=== PATIENT | female | born 1945 | race Caucasian/White ===

== ENCOUNTER → 2017-12-24 07:54 | Outpatient (CLI) | payer MEDICARE, SELFPAY ==
--- NOTE | 2017-12-24 | DI.MG.S_ITS ---
BILATERAL DIGITAL SCREENING MAMMOGRAM 3D/2D WITH CAD: 12/24/2017 CLINICAL: Routine screening. Family history of breast cancer. Comparison is made to exams dated: 07/30/2016 mammogram, 11/27/2014 mammogram, and 03/23/2013 mammogram - [facility]. The tissue of both breasts is heterogeneously dense. This may lower the sensitivity of mammography. Current study was also evaluated with a Computer Aided Detection (CAD) system. No significant masses, calcifications, or other findings are seen in either breast. There has been no significant interval change. IMPRESSION: NEGATIVE There is no mammographic evidence of malignancy. A 1 year screening mammogram is recommended. This exam was interpreted at Station ID: [id number]. NOTE: For mammograms, a report in lay terms will be sent to the patient. Approximately 15% of breast malignancies will not be visualized mammographically. In the management of a palpable breast mass, a negative mammogram must not discourage biopsy of a clinically suspicious lesion. Electronically Signed By: Abhijit olivas/jason:12/24/2017 16:56:30 letter sent: Normal Exam ACR BI-RADS Category 1: Negative [id number]
== END ==
PROVIDERS: PCP Family Medicine; Visit Provider Family Medicine
DX: Z12.31 Encounter for screening mammogram for malignant neoplasm of breast (principal); Z80.3 Family history of malignant neoplasm of breast
CPT/HCPCS: 77063; 77067

== ENCOUNTER → 2018-11-08 10:07 | Outpatient (CLI) | payer MEDICARE, SELFPAY | PROVIDERS: PCP Family Medicine; Visit Provider Family Medicine | DX: M81.0 Age-related osteoporosis without current pathological fracture (principal); Z78.0 Asymptomatic menopausal state | CPT/HCPCS: 77080 ==

== ENCOUNTER → 2020-03-22 08:49 | Outpatient (CLI) | payer MEDICARE, SELFPAY ==
[2020-03-22] MEDS: COVID-19 VACC #1, MRNA(MOD) 100 MCG/0.5 ML VIAL IM (08:55)
== END ==
PROVIDERS: PCP Family Medicine; Visit Provider Internal Medicine
DX: Z23 Encounter for immunization (principal)
CPT/HCPCS: 0011A; 91301

== ENCOUNTER → 2020-04-19 08:47 | Outpatient (CLI) | payer MEDICARE, SELFPAY ==
[2020-04-19] MEDS: COVID-19 VACC #2, MRNA(MOD) 100 MCG/0.5 ML VIAL IM (08:55)
== END ==
PROVIDERS: PCP Family Medicine; Visit Provider Internal Medicine
DX: Z23 Encounter for immunization (principal)
CPT/HCPCS: 0012A; 91301

== ENCOUNTER → 2020-04-24 11:02 | Outpatient (CLI) | payer MEDICARE, SELFPAY ==
[2020-04-24 13:28] LABS: COVID19 -Nasal RAPID Negative (Negative)
== END ==
PROVIDERS: PCP Family Medicine; Visit Provider Nurse Practitioner Family
DX: Z20.822 Contact with and (suspected) exposure to COVID-19 (principal)
CPT/HCPCS: 87635; C9803

== ENCOUNTER 2020-04-26 11:41 | Day surgery (SDC) | payer MEDICARE, SELFPAY ==
[2020-04-26 12:14] VITALS: BP 130/80; PULSE 78; RESP 16; TEMP 37.2; O2SAT 99; BMI 22.1
--- NOTE | 2020-04-26 12:17 | PM.HP.1 ---
History of Present Illness History of Present Illness Date Patient Seen: 04/26/20 Chief complaint: SDC Narrative: 74 year old female comes in today for consideration of a screening colonoscopy. Last colonoscopy in 2009, normal. 2-[address] Baker did note that her colon was long and required the entire length of the scope to perform cecal intubation. There have been no lower GI symptoms suggesting disease such as change in bowel habits, bleeding, abdominal pain or anemia. There's been no family history of colon cancer or colon polyps. Overall health issues have been stable, including no major cardiac events for at least 6 weeks. PCP: Dr. Stewart Past medical history: Osteoporosis Depression Impaired fasting glucose Situational stress Hypertension Subdural hematoma Past surgical history: Colonoscopy, 2009, normal Family history: No colon cancer or colon polyps Social history: , retired dietitian, hospital. Patient History Medical History (Updated 04/26/20 @ 12:05 by Kim Lopez RN) Depression Hypertension Meds Home Medications and Allergies Home Medications Medication Instructions Recorded Confirmed Type diltiazem HCl 180 mg PO DAILY 04/26/20 04/26/20 History spironolactone 25 mg PO DAILY 04/26/20 04/26/20 History venlafaxine 75 mg PO DAILY 04/26/20 04/26/20 History Allergies Allergy/AdvReac Type Severity Reaction Status Date / Time Iodinated Contrast Media Allergy Verified 04/26/20 11:59 Review of Systems Review of Systems ROS: Yes All systems reviewed with the patient and are negative except as otherwise documented Exam Narrative Exam Narrative: GENERAL: Alert and oriented, appearing stated age and in no acute distress. HEENT: Head normocephalic/atraumatic. Pupils equal, round, and reactive to light and accomodation. Extraocular muscles intact. Tympanic membranes clear. Nasal mucosa moist, septum midline. Oral mucosa moist, no lesions. Neck soft and supple, no lymphadenopathy. LUNGS: Clear to ausculation bilaterally, no wheezes, rhonchi or rales. CV: Normal S1 and S2 with regular rate and rhythm, no audible murmurs, rubs or gallops. ABDOMEN: Soft, non-tender, non-distended, no organomegaly. Positive bowel sounds. EXTREMITIES: No clubbing, cyanosis, or edema. NEURO: Cranial nerves II through XII grossly intact, no focal deficits. PSYCH: Alert and oriented x 3. SKIN: No concerning lesions. Assessment & Plan Assessment & Plan narrative: 1. Screening for colon cancer Plan for colonoscopy. The nature and character of the procedure as well as anticipated results were discussed. The possibility of not completing the procedure was also discussed. Possible complications including aspiration pneumonia, bleeding, perforation and reaction to medications either for sedation or preparation and missed lesions were discussed. Questions were answered and proceeding to the colonoscopy was elected. Informed consent signed. I sincerely appreciate the referral allowing me to participate in this patient's care. Please contact me with any questions or concerns.
--- NOTE | 2020-04-26 12:22 | P.OP.ENDO_ITS ---
Operative Date/Time/Diagnoses Date of procedure: 04/26/20 Procedure Notes Procedure in detail: ENDOSCOPIST: Marce Duggan MD Sedation RN: Karla Chaves RN Sedation start time: 13:08 Sedation end time: 13:35 PROCEDURE: Colonoscopy INDICATIONS: 1. Screening for colon cancer MEDICATION: Levsin 0.125 mg sublingual, incremental doses of Versed and fentanyl until appropriate level of sedation achieved. ASA CLASS: 2 CECAL WITHDRAWAL TIME: 8 minutes COMPLICATIONS: None. EXTENT OF PROCEDURE: Cecum. QUALITY OF PREP: Good with portions of liquid stool. PROCEDURE: Prior to insertion of the colonoscope, a digital rectal examination was accomplished with circumferential palpation of the distal rectal mucosa without significant findings being noted. The high-definition pediatric colonoscope was passed into the rectum in the usual fashion and advanced over to the cecum without difficulty. The ileocecal valve, appendiceal stoma, and medial wall all could be inspected and no abnormalities were seen. ASCENDING COLON: As the colonoscope was withdrawn, care was taken to expose and inspect the haustral folds and no abnormalities were seen. HEPATIC FLEXURE: Normal, no polyps, diverticula or other abnormalities. TRANSVERSE COLON: Normal, no polyps, diverticula or other abnormalities. DESCENDING COLON: Minor diverticulosis, otherwise, no polyps, or other abnormalities. SIGMOID COLON: Minor diverticulosis, otherwise, no polyps, or other abnormalit ies. RECTUM: Normal. J maneuver was produced. There was no significant perianal disease. The J maneuver was broken. The remainder of the rectum was inspected and there was minor external hemorrhoid disease. The scope was withdrawn. IMPRESSION: 1. Minor diverticulosis, left-sided 2. External hemorrhoid disease, minor PLAN: 1. Follow-up in clinic status post pathology results. The possibility of a missed lesion including a malignancy has been discussed with the patient previously. Potential alarm symptoms have been discussed and should be reported immediately.
[2020-04-26] MEDS: HYOSCYAMINE 0.125 MG TABLET PO (12:28)
[2020-04-26] MEDS: LACTATED RINGERS 1,000 ML 200 ML IV (12:28)
[2020-04-26] MEDS: fentaNYL 250 MCG/5 ML INJ IV (13:08)
[2020-04-26] MEDS: MIDAZOLAM 5 MG/5 ML VIAL IV (13:13)
[2020-04-26 13:40] VITALS: BP 123/75; PULSE 66; RESP 12; TEMP 37.1; O2SAT 99
[2020-04-26 13:45] VITALS: BP 131/75; PULSE 67; RESP 18; O2SAT 98
--- NOTE | 2020-04-26 13:47 | SUR.PHASEI ---
at bedside at this time.
[2020-04-26 13:50] VITALS: BP 118/68; PULSE 77; RESP 18; O2SAT 96
[2020-04-26 13:55] VITALS: BP 120/74; PULSE 63; RESP 14; TEMP 36.9; O2SAT 99
== END 2020-04-26 14:10 | disposition home or self-care (01) ==
PROVIDERS: PCP Family Medicine; Referring Provider Student in an Organized Health Care Education/Training Program; Visit Provider Student in an Organized Health Care Education/Training Program
PROC: 0DJD8ZZ Inspection of Lower Intestinal Tract, Via Natural or Artificial Opening Endoscopic (ICD-10-PCS; CPT 45378; principal; 2020-04-26 13:00)
DX: Z12.11 Encounter for screening for malignant neoplasm of colon (principal); I10 Essential (primary) hypertension; F32.9 Major depressive disorder, single episode, unspecified; K57.30 Diverticulosis of large intestine without perforation or abscess without bleeding; K64.4 Residual hemorrhoidal skin tags
CPT/HCPCS: G0105; J2250; J3010

== ENCOUNTER 2020-05-04 15:06 | Emergency (ER) | payer MEDICARE, SELFPAY ==
[2020-05-04 15:07] VITALS: BP 111/54; PULSE 53; RESP 16; TEMP 36.3; O2SAT 100; BMI 22.1
--- NOTE | 2020-05-04 15:11 | DI.RAD.S_ITS ---
PROCEDURE: XR SHOULDER RT MIN 2V INDICATIONS: fall from 2 step ladder +deformity TECHNIQUE: 3 views of the shoulder were acquired. COMPARISON: None. FINDINGS: Bones: Markedly comminuted displaced fracture of the humeral head and neck with associated likely hemarthrosis causing mild inferior subluxation of the humeral head. No suspicious bony lesions. Visualized ribs appear intact. Soft tissues: No suspicious soft tissue calcifications. IMPRESSION: Markedly comminuted, displaced fracture of the right humeral head and neck. Dictated by: Dylan Madrigal M.D. on 05/04/2020 at 14:38 Approved by: Dylan Madrigal M.D. on 05/04/2020 at 14:41
--- NOTE | 2020-05-04 15:39 | PC.NURSE ---
large ecchymotic area on shoulder and deltoid.
--- NOTE | 2020-05-04 16:39 | ED_ITS ---
HPI - Fall General Chief Complaint: Fall Stated Complaint: fall from small ladder, right shoulder injury Time Seen by Provider: 05/04/20 16:38 Source: patient and family Limitations: no limitations History of Present Illness HPI Narrative: This is a 74-year-old female comes to the emergency department with complaint of fall from a fall small step stool. Patient was outside washing her windows when 1 of the legs of the stool sink into the ground and she lost her balance and fell onto her right shoulder. She denies hitting her head. She denies any current neck or back pain. She has felt slightly dizzy immediately afterwards. She states she waited several hours and then came for evaluation. She has pain with any movement of her upper arm. She does not have any numbness or tingling down her extremities. She has not had any loss of sensation. She denies any chest pain, shortness of breath, she denies persistent dizziness. No nausea, vomiting, no other GI or urinary symptoms. She takes medication for blood pressure. Denies any anticoagulation. Her only allergies are iodine contrast. She follows with Dr. Stewart for her primary care. Related Data Home Medications Medication Instructions Recorded Confirmed diltiazem HCl 180 mg PO DAILY 04/26/20 04/26/20 spironolactone 25 mg PO DAILY 04/26/20 04/26/20 venlafaxine 75 mg PO DAILY 04/26/20 04/26/20 Previous Rx's Medication Instructions Recorded oxycodone 5 mg PO QID PRN #20 tab 05/04/20 Allergies Allergy/AdvReac Type Severity Reaction Status Date / Time Iodinated Contrast Media Allergy Verified 04/26/20 11:59 Review of Systems Review of Systems ROS Unobtainable: All systems reviewed & are unremarkable except as noted in HPI and below Patient History Medical History Depression Hypertension Social History household members: spouse Smoking Status: Never smoker alcohol intake: current Smoking Status: Never smoker alcohol intake frequency: 0-2 drinks per day Substance Use Type: does not use Exam Narrative Exam Narrative: GEN: Patient appears in mild distress. HEAD: No evidence of trauma, no raccoon/Wolfe sign. NECK: Nontender, painless range of motion, trachea midline Negative Nexus criteria, there is no line tenderness, distracting injury, altered mental status, neuro deficit, recent EtOH. EYES: PERRLA, EOMI ENT: External inspection normal, trachea is midline, TM's are normal no hemotypanum, Nares are clear, no septal hematoma, no dental or oral injury, airway is normal and with normal occlusion, No bony tenderness RESP: Chest is nontender and has symmetric movement, no ecchymosis, breath sounds are normal no crackles, wheezes or rales CVS: Heart sounds are normal, no murmur noted, No JVD. ABG/GI: Nontender, soft, normal bowel sounds, no distention, no organomegaly, pelvic rock is negative NEURO: Oriented AOx3, neuro is grossly intact, sensation and motor is normal all 4 extremities moving, cranial nerves II through XII are intact, GCS is 15 PSYCH: Normal mood and affect SKIN: Intact, warm and dry, no crepitus and without decubitus BACK: No CVA tenderness, no vertebral tenderness, no step-off's, no crepitus EXT: Right shoulder deformity, patient has ecchymosis over the deltoid region, patient has 2+ radial pulse bilaterally, shirrer are equal bilaterally. Patient has full extension and flexion of her fingers along with 80 and a be duction. Patient also has full extension flexion of her wrist on the right. She does not have any other bony tenderness in her lower forearm or elbow. Hips are nontender, no pedal edema, normal color and temperature, normal range of motion of extremities with normal tendon exam, 2+ pulses in all four extremities Initial Vital Signs Initial Vital Signs: Vital Signs Temperature 97.4 F L 05/04/20 15:07 Pulse Rate 53 L 05/04/20 15:07 Respiratory Rate 16 05/04/20 15:07 Blood Pressure 111/54 L 05/04/20 15:07 Pulse Oximetry 100 05/04/20 15:07 Scores GCS Jim coma scale eye opening: Spontaneous Jim coma scale verbal response: Orientated [place] coma scale motor response: Obey commands Jim coma scale total score: 15 Course Orders Ordered: ED Orders 05/04/20 15:11 XR shoulder RT min 2V Stat Discontinued Medications Oxycodone/Acetaminophen (Oxycodone/Acetaminophen 5/325 Tablet) 1 tab PO NOW ONE Stop: 05/04/20 16:57 Last Admin: 05/04/20 17:06 Dose: 1 tab Documented by: FLORENTINO Moreno Consultation #1: Dr. Parish reviewed patient's images. She feels patient likely is not dislocated it is more the medialization of the humeral shaft. She recommends sling, follow-up with Orthopedic surgery if patient is neurovascularly intact with option for fixation this coming week. Patient is to call Wednesday morning for follow-up. Time: 16:50 Vital Signs Vital signs: Vital Signs - 8 hr 05/04/20 15:07 05/04/20 17:33 05/04/20 18:11 Temperature 97.4 F L Pulse Rate 53 L 61 55 L Respiratory Rate 16 14 18 Blood Pressure 111/54 L 120/57 L 130/74 Pulse Oximetry 100 95 97 [facility] - Fall Imaging Data Extremity x-ray #1: Radiologist's Impression: [address] [id number] ReportSigned Patient: Magi Rodgers AMR#: [id number]: 4Acct:[id number]/Sex: 74 / FDate of Service: 05/04/20Loc: EDAccession Number: [id number] Procedure: XR shoulder RT min 2V Ordering Provider: Cecelia Lay D.O. PROCEDURE: XR SHOULDER RT MIN 2V INDICATIONS: fall from 2 step ladder +deformity TECHNIQUE: 3 views of the shoulder were acquired. COMPARISON: None. FINDINGS: Bones: Markedly comminuted displaced fracture of the humeral head and neck with associated likely hemarthrosis causing mild inferior subluxation of the humeral head. No suspicious bony lesions. Visualized ribs appear intact. Soft tissues: No suspicious soft tissue calcifications. IMPRESSION: Markedly comminuted, displaced fracture of the right humeral head and neck. Dictated by: Dylan Madrigal M.D. on 05/04/2020 at 14:38 Approved by: Dylan Madrigal M.D. on 05/04/2020 at 14:41 [facility] Narrative Medical decision making narrative: This is a 74-year-old female comes emergency department with right humeral fracture concern for subluxation, reviewed with Orthopedic surgery who feels this not a true subluxation. We did review patient's physical exam. She is neurovascularly intact. She recommend patient follow-up with the office this week for follow-up and surgical repair. Patient had pain improved after sling was placed and given oxycodone in the department. Prescription for pain control, return precautions and we did discuss symptoms to watch for specifically. Patient was neurovascularly intact on recheck after sling was placed. She had a short episode of hypotension after her arm was adjusted, she states this is typical and after a period of monitoring it resolved. Discharge Plan Departure Patient Disposition: Home Clinical Impression: Fracture of neck of humerus Fracture of head of humerus Qualifiers: Encounter type: initial encounter Fracture type: closed Laterality: right Qualified Code(s): S42.291A - Other displaced fracture of upper end of right humerus, initial encounter for closed fracture Instructions: DI for Humeral Fracture Activity Restrictions/Additional Instructions: Follow up with Orthopedic surgery, call Wednesday morning for an appointment. I spoke with Dr. Rivas who feels you may be a candidate for surgical fixation this week. Let the waterfront director know when you call that she would like you seen to set up surgery. Take Tylenol up to a 1000 mg every 8 hours as needed for pain. You may take oxycodone 1 tablet every 4-6 hours as needed for pain control, this medication can make you sleepy do not drive, perform hazardous activities or make any major decisions while taking it. This medication will also make you constipated so take the Colace for stool softener once daily until stools are soft and regular. Prescription sent to [facility] in [place]. Splint Care: Keep splint clean and dry. Elevated affected body part to decrease swelling. OK to use ice pack on the affected body part. Use for 15-20 minutes each time, for 5-6x per day. If you develop worsening pain, numbness, tingling, discoloration of the affected body part, just the sling, and either see your doctor for an urgent re-assessment, or return to the Emergency Department. Return to the Emergency Department for any new or worsening symptoms. Prescriptions: New oxycodone 5 mg tablet 5 mg PO QID PRN (Reason: pain) Qty: 20 RF: 0 No Action diltiazem HCl 180 mg capsule,extended release 24hr 180 mg PO DAILY RF: 0 spironolactone 25 mg tablet 25 mg PO DAILY RF: 0 venlafaxine 75 mg capsule,extended release 24hr 75 mg PO DAILY RF: 0 Referrals: Jennifer Parish MD [Physician] - Yvan Stewart MD [Primary Care Provider] -
[2020-05-04] MEDS: OXYCODONE/ACETAMINOPHEN 5/325 TABLET 1 TAB PO (17:06)
[2020-05-04 17:33] VITALS: BP 120/57; PULSE 61; RESP 14; O2SAT 95
[2020-05-04 18:11] VITALS: BP 130/74; PULSE 55; RESP 18; O2SAT 97
== END 2020-05-04 18:13 | disposition home or self-care (01) ==
PROVIDERS: Emergency Provider Emergency Medicine; PCP Family Medicine
DX: S42.291A Other displaced fracture of upper end of right humerus, initial encounter for closed fracture (principal); W19.XXXA Unspecified fall, initial encounter
CPT/HCPCS: 73030; 99283

== ENCOUNTER → 2020-05-08 11:11 | Outpatient (CLI) | payer MEDICARE, SELFPAY ==
[2020-05-08 13:26] LABS: COVID19 -Nasal RAPID Negative (Negative)
== END ==
PROVIDERS: PCP Family Medicine; Visit Provider Physician Assistant
DX: Z01.812 Encounter for preprocedural laboratory examination (principal); Z20.822 Contact with and (suspected) exposure to COVID-19
CPT/HCPCS: 87635; C9803

== ENCOUNTER 2020-05-10 11:47 | Day surgery (SDC) | payer MEDICARE, SELFPAY ==
[2020-05-10] VITALS (9 sets, daily range): BP systolic 110–140; BP diastolic 61–79; PULSE 71–78; RESP 12–18; TEMP 36.1–36.8; O2SAT 93–99
--- NOTE | 2020-05-10 | DI.RAD.S_ITS ---
PROCEDURE: XR SHOULDER RT MIN 2V INDICATIONS: FX REPAIR TIGHT TECHNIQUE: Fluoroscopic images were obtained during an operative procedure and submitted for interpretation following the completion of the procedure. COMPARISON: [facility], CR, XR SHOULDER RT MIN 2V, 05/04/2020, 15:14. FINDINGS: These fluoroscopic images were performed for intraoperative localization. On these images, plate and screw fixation is seen of the right humeral neck, with improved anatomic alignment. Please correlate with intraoperative findings. IMPRESSION: Normal intraoperative examination. Dictated by: Storm Mojica M.D. on 05/10/2020 at 15:29 Approved by: Storm Mojica M.D. on 05/10/2020 at 15:30
[2020-05-10] MEDS: LACTATED RINGERS 1,000 ML 42 ML IV ×2 (12:26→13:58)
--- NOTE | 2020-05-10 12:40 | PM.PREOP ---
Pre-operative Note COVID-19 COVID-19 status: Negative Interval Note History & Physical reviewed/Exam performed by Physician: Yes Changes to H&P: No
--- NOTE | 2020-05-10 12:47 | SUR.PREOP ---
1248 - Pt moved to block room. Monitoring initiated and maintained throughout procedure. 2L NC placed. 1255 - time out performed. Versed given by Dr Palmer. 1307 - 1309 Injection time. 1312 - Patient remains stable. No adverse reactions noted.
[2020-05-10] MEDS: CEFAZOLIN 2 GM/100 ML FROZ.PIGGY IV (13:25)
--- NOTE | 2020-05-10 13:53 | SUR.OPER ---
Supine on padded OR bed, head on pillow, left arm secured on padded arm boards at <90 degrees abduction, right arm is on arm table and under control of surgeon, legs uncrossed, safety belt at thigh, tape over blanket over patient torso and lower legs.
[2020-05-10] MEDS: BUPIVACAINE 0.5% W/ EPI (PF) 30 ML VIAL INJ (14:00)
--- NOTE | 2020-05-10 15:24 | SUR.OPER ---
Pt's right upper extremity is bluish, purplish in color, on the sling, pulse is present; observed in pre-op area.
--- NOTE | 2020-05-10 15:46 | SUR.PHASEI ---
due to very effective nerve block pt. can move LUE, and bilat. LE, not able to move RUE at this time, as expected. ongoing monitoring.
[2020-05-10] MEDS: OXYCODONE IR 5 MG TABLET PO (16:02)
[2020-05-10] MEDS: ONDANSETRON 4 MG/2 ML INJ IV (16:02)
--- NOTE | 2020-05-10 16:15 | PM.OP.1 ---
Operative Date/Time/Diagnoses Date of procedure: 05/10/20 Time of procedure: 13:00 Pre-op diagnosis: Right proximal humerus fracture Post-op diagnosis: same Procedure & Clinicians Procedure: open reduction internal fixation right proximal humerus fracture CPT code 80434 Same procedure as scheduled: Yes Indications: the patient is a 74-year-old [id number] female with a displaced comminuted right proximal humerus fracture greater than 2 cm of shaft displacement in greater than 45? angulation. She is highly active for her age in indicated for stabilization with open reduction internal fixation. she was grossly neurovascularly intact. she was able to flex and extend her wrist and fingers. shoulder range of motion unable to be performed due to pain/ fracture. The risks and benefits of the procedure have been discussed with the patient even opportunity to ask questions. The risks of surgery include but are not limited to infection, malunion, nonunion, persistence of pain, damage to nerves and blood vessels, posttraumatic arthritis, DVT, PE, cardiopulmonary complications and . The patient expressed a thorough understanding of the risks and benefits of surgery and has elected to proceed. Consent was signed in the office. Surgeon: Jennifer Parish Data Services Developer: Eric Issa Anesthesia Type: General and Peripheral nerve block ( peripheral nerve block placed by anesthesia team for postoperative pain control) Operative Notes Findings: comminuted right proximal humerus fracture comminution at the surgical neck. Axillary nerve was identified and protected with a vessel loop. Anteriorly in the termination into the deltoid was noted to be tented over a anterior sharp fracture fragment on exposure at the level of the surgical neck Closure Type: primary Specimen(s): none sent Prosthetic devices, grafts, tissues, transplants, or devices: [employer] Nephew evos straight proximal humerus plate short locking screws proximally. Cortical and locking screws distally Estimated Blood Loss (mL): 150 Blood products transfused: none Tourniquet time (min): 0 Procedure in detail: patient was seen in the preoperative area and the site of surgery was marked and informed consent confirmed. The patient was in a sling she was examined was able to extend her wrist and flex her fingers. She did have resolving bruising over the upper arm forearm and the hand. Palpable pulse was present. She was taken to the block room by the anesthesia team and a block was placed for postoperative pain control. Patient was then taken to the operating room and positioned supine on the operative table. She was moved to the edge of the table and a blanket was placed under scapula to help bump the arm. Hand table was placed on the right side. General anesthetic was administered. C-arm was brought in we can make sure that we could obtain our AP and axillary images then the right upper extremity was prepped and draped in the standard sterile fashion. A formal time-out procedure was performed confirming the patient's side and site of surgery administration of appropriate preoperative antibiotics and presence of informed consent. All were in agreement. Implants were in the room accounted for. Anterior lateral incision was marked out and just off the anterior lateral acromion. level 6 cm of the low the acromion was marked out as the presumed location of the axillary nerve. Incision was made down through the skin. Bovie cautery was used for hemostasis. Deltoid was split in the avascular raphe. finger dissection was taken distally And the axillary nerve was palpated and then protected with a vessel loop. Anteriorly along the proximal humerus surgical neck there is a sharp displaced fragment with anterior angulation impaling the deltoid at this level and placing tension on the axillary bundle and its anterior termination. The fragment was reduced releasing attention on the circumferential band of tissue however anterior portion did appear abrasied. using combination of fracture reduction forceps K-wire joysticks and the head and Hinojosa elevator the fracture was really reduced realigning the head and neck axis. The short straight proximal humerus plate was then secured to the humeral head 1st with the securing pins and wires this was checked on AP and axillary multiplanar intraoperative fluoroscopic imaging. Once this was in appropriate position the head was then secured to the shaft using a wire and then a cortical screw followed by 2 locking shaft screws. Once this was completed final fluoroscopic imaging was obtained in multiplanar imaging confirmed appropriate quaker of the humeral shaft alignment and placement of hardware. No joint penetration was noted. There was a substantial medial calcar comminution. The wound was irrigated with saline and closed in a layered fashion with 2-0 Vicryl in the deltoid raphe. 2 O Vicryl subcutaneous 4-0 Monocryl subcutaneous and surgical diogo. An Aquacel dressing was placed. The patient was removed from the drapes and the sling was placed. The patient was woken from anesthesia and taken to recovery room in good condition. There no immediate complications noted from this procedure. All counts were correct.[id number] Complications: none Post-operative Condition: stable Disposition: PACU Plan for aftercare: nonweightbearing right upper extremity sling at all times. After about 3 days may begin some gentle pendulums. Low proximal humerus protocol. May shower with the Aquacel dressing on. Follow-up in 2 weeks for x-rays, staple removal and initiation of therapy
== END 2020-05-10 16:00 | disposition home or self-care (01) ==
LOC: OR 11:50 → AC 11:50
PROVIDERS: PCP Family Medicine; Referring Provider Orthopaedic Surgery Foot and Ankle Surgery; Visit Provider Orthopaedic Surgery Foot and Ankle Surgery
PROC: (CPT 23615; principal; 2020-05-10 13:15)
DX: S42.291A Other displaced fracture of upper end of right humerus, initial encounter for closed fracture (principal); W10.8XXA Fall (on) (from) other stairs and steps, initial encounter; I10 Essential (primary) hypertension; F32.9 Major depressive disorder, single episode, unspecified
CPT/HCPCS: 23615; 73030; 76000; J0690; J1100; J2250; J2405; J2704; J3010

== ENCOUNTER 2020-08-05 09:45 | Outpatient (RCR) | payer MEDICARE, SELFPAY ==
--- NOTE | 2020-05-27 14:07 | PT.OIE ---
Current Diagnoses Other displaced fracture of upper end of right humerus, initial encounter for closed fracture (05/27/20) Past Medical History (Last Updated 05/10/20 @ 10:55 by Chantell Garrison RN) Arthritis Depression Hypertension Visit Care Team Role Provider Type Yvan Stewart MD Family Provider Physician Primary Care Provider Specialty: Family Practice Address: [address] [place] [address], [facility] [place], [address] Email: [email or web address] Jennifer Parish MD Attending Provider Physician Referring Provider Specialty: Orthopedic Surgery Address: [address] [place] [address], [address] Email: [email or web address] Physical Therapy Initial Evaluation PT-OP-A Visit Information Start: 05/27/20 07:20 Freq: Status: Active Protocol: Document 05/27/20 09:47 MB (Rec: 05/27/20 10:22 MB [id number]) Out-Patient Physical Therapy Visit Information Visit Information Visit Type Initial Evaluation Visit Note Medicare AARP Visit Start Time 09:47 Visit Stop Time 10:30 Total Visit Minutes 43 Visit Number 1 Evaluation Information Evaluation Date 05/27/20 Precautions Precautions Order 05/22/20: Restrictions: AROM x6 week. Follow protocol. Protocol: For 6 weeks. Pendulums, range of motion started 2 weeks. Discontinue sling starting at 6 weeks with weaning. Resisted exercises start after 6 weeks. PT-OP-B Current Condition Start: 05/27/20 07:20 Freq: Status: Active Protocol: Document 05/27/20 09:47 MB (Rec: 05/27/20 10:22 MB [id number]) Current Condition History of Current Condition Onset Date 05/10/20 Current Complaints Right arm discomfort and disuse History of Current Condition Pt reports that on 05/10/20, she had a fall off a short ladder onto her right shoulder . She had heard a noise. She went to the ED and was found to have a humeral fracture. She underwent an ORIF on . Pt has worn the sling since 05/11/20 and was told at her post-op with Dr. Parish on 05/22/20 that she should wear the sling for 4 more weeks and con't pendulums. Pt sees the surgeon again 06/17. She is right handed. She has no numbness or tingling. Pt reports 3/10 right shoulder pain and 2/10 left hip pain. Pt reports a history of osteopenia, arthritis, back pain, high BP. Pt has been sleeping in a recliner chair. She tried sleeping in the bed on her left last night and slept better. Prior Treatments and Tests PT in the past and was told that she had one leg longer than the other and has exercises Treatment Goals Patient/Caregiver Goals To decrease right arm discomfort and improve use PT-OP-C Subjective Start: 05/27/20 07:20 Freq: Status: Active Protocol: Document 05/27/20 09:47 MB (Rec: 05/27/20 12:40 MB [id number]) OP-PT Subjective Patient Comments Patient Comments See history of current condition Patient Questionnaires Quick Dash- Upper Extremity Quick Dash UE Score 36 Quick Dash UE Impairment 40 to 59% Impaired (Score 40- 59) PT-OP-J Posture/Palpation/Skin Start: 05/27/20 07:20 Freq: Status: Active Protocol: Document 05/27/20 09:47 MB (Rec: 05/27/20 12:57 MB [id number]) Posture Evaluation Comments Posture Comments Pt standing: right arm edematous with yellowish ecchymosis around elbow and edema is pitting in forearm area, post-op incision healing anteromedial proximal arm grossly 4, right AC joint 2 in front of tragus, pt with spinal curvature changes with translation to the left upper body and convexity to the right at thoracic spine, right iliac crest is higher than the left, increased valgus left knee with left foot overpronation. PT-OP-K Range of Motion Start: 05/27/20 07:20 Freq: Status: Active Protocol: Document 05/27/20 09:47 MB (Rec: 05/27/20 12:57 MB [id number]) Cervical Spine Range of Motion Cervical Spine Active Testing Position Standing Rotation Left 45 Rotation Right 50 Lateral Flexion Left 25 Lateral Flexion Right 25 Shoulder Goniometric Range of Motion Shoulder Right Shoulder ROM WFL No Testing Position Supine Comments AROM deferred post-op 15-16 days per doctor's order Supine PROM flexion to 45 deg, abduction to 30 deg, pt guarding movement. ER and IR in 30 deg abduction: ER 0 deg and IR 5 deg Left shoulder Shoulder ROM WFL Yes Testing Position Standing Comments Supine PROM with shoulder in 90/90: ER 60 and IR 45 deg PT-OP-M Strength Start: 05/27/20 07:20 Freq: Status: Active Protocol: Document 05/27/20 09:47 MB (Rec: 05/27/20 12:57 MB [id number]) Shoulder Strength Shoulder Manual Muscle Testing Left Flexion 5 Normal Abduction (C5) 5 Normal External Rotation 4 Good Internal Rotation 4 Good Right Comments All MMT deferred at this time Elbow/Forearm Strength Elbow and Forearm Manual Muscle Testing Left Flexion (C6) 5 Normal Extension (C7) 5 Normal Pronation 5 Normal Supination 5 Normal Right Comments Deferred at this time PT-OP-Q Treatments Start: 05/27/20 07:20 Freq: Status: Active Protocol: Document 05/27/20 09:47 MB (Rec: 05/27/20 12:43 MB [id number]) Self-Care/Home Management Treatment Education Other Education Proper performance of pendulum exercises using left hand on mat, bending over and letting right arm dangle, gentle rotation hips clockwise and then counterclockwise and letting arm move with. Ed pt that it is okay to move hips forward and backwards as well. Ed pt in use of towel roll at her neck at night to help unweight the shoulders and support her neck, benefits of frozen peas for swelling, sitting with right elbow supported: AROM right wrist extension, flexion, elbow flexion extension, pronation and supination, PT-OP-T Assessment and Plan Start: 05/27/20 07:20 Freq: Status: Active Protocol: Document 05/27/20 09:47 MB (Rec: 05/27/20 14:06 MB [id number]) Physical Therapy Assessment Rehab Potential Rehabilitation Potential Good Evaluation Complexity Number of Personal Factors/Comorbidities 1-2 Number of Body Systems Impaired 1-2 Clinical Presentation at Evaluation Stable Impairments Impairments Activity Tolerance,Balance, Coordination,Edema,Functional Activities,Integument,Pain, Posture,ROM,Soft Tissue Mobility,Strength Goals 5 Senior Care Goal (LTG) Pt will be able to don and doff bra and shirt without zipper or buttons with I by 07/27/20. LTG Duration 8 weeks 4 Salesperson Children[employer] Sh[employer] Goal (LTG) Pt will be able to tie her shoes using both hands by . LTG Duration 8 weeks 3 [employer] Goal (LTG) Pt will perform progressive HEP with I including postural and alignment, flexibility, ROM and strengthenging exercises to improve right UE function by 07/27/20. LTG Duration 8 weeks 2 Senior Care Goal (LTG) Pt will present with improved right shoulder AROM to at least 120 deg flexion and abduction and PROM ER and IR to 40 deg to improve functional use of her right arm by 07/27/20. LTG Duration 8 weeks 1 [employer]person [employer] Goal (LTG) Pt will present with an improved QuickDASH score to no more than 20% to reflect improved functional mobility and use of her right arm by 07/27/20. LTG Duration 8 weeks Assessment Summary Assessment Pty is a 74 y/o right hand dominant female presenting with decrease right UE range, strength and function s/p right humeral fracture 05/10/20 and s/p ORIF 05/11/20. She will benefit from PT for progressive ROM, flexiblity, strengthenging and postural exercises, following precautions per doctor's orders above. She does present with some pitting edema in her right forearm and distal humerus today and PT will monitor this. Barriers include osteopenia and the injury itself. Physical Therapy Plan Frequency and Duration Frequency of Treatment 2x/Week Duration of Treatment 8 weeks Plan of Care Start Date 05/27/20 Plan of Care End Date 07/29/20 Therapeutic Interventions Therapeutic Interventions Balance Training,Canalithic Repositioning,Coordination Training,Home Exercise Program ,Joint Mobilizations,Manual Therapy,Neuromuscular Re- education,Patient/Caregiver Education,Self-Care/Home Management,Sensory Integration ,Soft Tissue Mobilization, Taping,Therapeutic Activities, Therapeutic Exercises Modalities Cold Pack/Ice Massage,Electric Stimulation,Hot Packs, Ultrasound Next Visit Focus/Plan Next Note Type Treatment Note Next Visit Plan Consider racquet ball massage, scapular retraction and thoracic lift, cervical and other thoracic exercises
--- NOTE | 2020-05-27 14:08 | PT.OPPOC ---
Addendum entered and electronically signed by Darcie Wagner PT 05/27/20 14:08: Send to Dr. Parish Original Note: Physical, Occupational & Speech Therapy At [facility] Current Diagnoses Other displaced fracture of upper end of right humerus, initial encounter for closed fracture (05/27/20) Visit Care Team Role Provider Type Yvan Stewart MD Family Provider Physician Primary Care Provider Specialty: Family Practice Address: [address] [place] [address], [facility] [place], [address] Email: [email or web address] Jennifer Parish MD Attending Provider Physician Referring Provider Specialty: Orthopedic Surgery Address: [address] [place] [address], [id number] Email: [email or web address] Plan Of Care PT-OP-T Assessment and Plan Start: 05/27/20 07:20 Freq: Status: Active Protocol: Document 05/27/20 09:47 MB (Rec: 05/27/20 14:06 MB [id number]) Physical Therapy Assessment Rehab Potential Rehabilitation Potential Good Evaluation Complexity Number of Personal Factors/Comorbidities 1-2 Number of Body Systems Impaired 1-2 Clinical Presentation at Evaluation Stable Impairments Impairments Activity Tolerance,Balance, Coordination,Edema,Functional Activities,Integument,Pain, Posture,ROM,Soft Tissue Mobility,Strength Goals 5 Exhibit Carpenter Goal (LTG) Pt will be able to don and doff bra and shirt without zipper or buttons with I by 07/27/20. LTG Duration 8 weeks 4 Prison Goal (LTG) Pt will be able to tie her shoes using both hands by . LTG Duration 8 weeks 3 Exhibit Carpenter Goal (LTG) Pt will perform progressive HEP with I including postural and alignment, flexibility, ROM and strengthenging exercises to improve right UE function by 07/27/20. LTG Duration 8 weeks 2 Exhibit Carpenter Goal (LTG) Pt will present with improved right shoulder AROM to at least 120 deg flexion and abduction and PROM ER and IR to 40 deg to improve functional use of her right arm by 07/27/20. LTG Duration 8 weeks 1 Prison Goal (LTG) Pt will present with an improved QuickDASH score to no more than 20% to reflect improved functional mobility and use of her right arm by 07/27/20. LTG Duration 8 weeks Assessment Summary Assessment Pttressa is a 74 y/o right hand dominant female presenting with decrease right UE range, strength and function s/p right humeral fracture 05/10/20 and s/p ORIF 05/11/20. She will benefit from PT for progressive ROM, flexiblity, strengthenging and postural exercises, following precautions per doctor's orders above. She does present with some pitting edema in her right forearm and distal humerus today and PT will monitor this. Barriers include osteopenia and the injury itself. Physical Therapy Plan Frequency and Duration Frequency of Treatment 2x/Week Duration of Treatment 8 weeks Plan of Care Start Date 05/27/20 Plan of Care End Date 07/29/20 Therapeutic Interventions Therapeutic Interventions Balance Training,Canalithic Repositioning,Coordination Training,Home Exercise Program ,Joint Mobilizations,Manual Therapy,Neuromuscular Re- education,Patient/Caregiver Education,Self-Care/Home Management,Sensory Integration ,Soft Tissue Mobilization, Taping,Therapeutic Activities, Therapeutic Exercises Modalities Cold Pack/Ice Massage,Electric Stimulation,Hot Packs, Ultrasound Next Visit Focus/Plan Next Note Type Treatment Note Next Visit Plan Consider racquet ball massage, scapular retraction and thoracic lift, cervical and other thoracic exercises Plan of Care Dates Plan of Care Start Date 05/27/20 Plan of Care End Date 07/29/20 Electronically Signed by: Darcie Wagner, PT 05/27/20 [id number] Please Sign and Return: I have reviewed this Plan of Care and certify that the skilled therapy services above are required to meet the patient?s needs. Physician Signature Date Printed Name and Credentials Clinical Instructor Signature Printed Name and Credentials
--- NOTE | 2020-05-31 10:32 | PT.OTN ---
Current Diagnoses Other displaced fracture of upper end of right humerus, initial encounter for closed fracture (05/31/20) Physical Therapy Treatment Note PT-OP-A Visit Information Start: 05/27/20 07:20 Freq: Status: Active Protocol: Document 05/31/20 09:45 MB (Rec: 05/31/20 10:04 MB [id number]) Out-Patient Physical Therapy Visit Information Visit Information Visit Type Treatment Note Visit Note Medicare AARP Visit Start Time 09:45 Visit Stop Time 10:30 Total Visit Minutes 45 Visit Number 2 Precautions Precautions Order 05/22/20: Restrictions: AROM x6 week. Follow protocol. Protocol: For 6 weeks. Pendulums, range of motion started 2 weeks. Discontinue sling starting at 6 weeks with weaning. Resisted exercises start after 6 weeks. PT-OP-B Current Condition Start: 05/27/20 07:20 Freq: Status: Active Protocol: Document 05/27/20 09:47 MB (Rec: 05/27/20 10:22 MB [id number]) Current Condition History of Current Condition Onset Date 05/10/20 Current Complaints Right arm discomfort and disuse History of Current Condition Pt reports that on 05/10/20, she had a fall off a short ladder onto her right shoulder . She had heard a noise. She went to the ED and was found to have a humeral fracture. She underwent an ORIF on . Pt has worn the sling since 05/11/20 and was told at her post-op with Dr. Parish on 05/22/20 that she should wear the sling for 4 more weeks and con't pendulums. Pt sees the surgeon again 06/17. She is right handed. She has no numbness or tingling. Pt reports 3/10 right shoulder pain and 2/10 left hip pain. Pt reports a history of osteopenia, arthritis, back pain, high BP. Pt has been sleeping in a recliner chair. She tried sleeping in the bed on her left last night and slept better. Prior Treatments and Tests PT in the past and was told that she had one leg longer than the other and has exercises Treatment Goals Patient/Caregiver Goals To decrease right arm discomfort and improve use PT-OP-C Subjective Start: 05/27/20 07:20 Freq: Status: Active Protocol: Document 05/31/20 09:45 MB (Rec: 05/31/20 10:04 MB [id number]) OP-PT Subjective Patient Comments Patient Comments I'm feeling pretty good. Pt reports achiness when she is going for a walk with the right arm in the sling. PT-OP-J Posture/Palpation/Skin Start: 05/27/20 07:20 Freq: Status: Active Protocol: Document 05/27/20 09:47 MB (Rec: 05/27/20 12:57 MB [id number]) Posture Evaluation Comments Posture Comments Pt standing: right arm edematous with yellowish ecchymosis around elbow and edema is pitting in forearm area, post-op incision healing anteromedial proximal arm grossly 4, right AC joint 2 in front of tragus, pt with spinal curvature changes with translation to the left upper body and convexity to the right at thoracic spine, right iliac crest is higher than the left, increased valgus left knee with left foot overpronation. PT-OP-K Range of Motion Start: 05/27/20 07:20 Freq: Status: Active Protocol: Document 05/27/20 09:47 MB (Rec: 05/27/20 12:57 MB [id number]) Cervical Spine Range of Motion Cervical Spine Active Testing Position Standing Rotation Left 45 Rotation Right 50 Lateral Flexion Left 25 Lateral Flexion Right 25 Shoulder Goniometric Range of Motion Shoulder Right Shoulder ROM WFL No Testing Position Supine Comments AROM deferred post-op 15-16 days per doctor's order Supine PROM flexion to 45 deg, abduction to 30 deg, pt guarding movement. ER and IR in 30 deg abduction: ER 0 deg and IR 5 deg Left shoulder Shoulder ROM WFL Yes Testing Position Standing Comments Supine PROM with shoulder in 90/90: ER 60 and IR 45 deg PT-OP-M Strength Start: 05/27/20 07:20 Freq: Status: Active Protocol: Document 05/27/20 09:47 MB (Rec: 05/27/20 12:57 MB [id number]) Shoulder Strength Shoulder Manual Muscle Testing Left Flexion 5 Normal Abduction (C5) 5 Normal External Rotation 4 Good Internal Rotation 4 Good Right Comments All MMT deferred at this time Elbow/Forearm Strength Elbow and Forearm Manual Muscle Testing Left Flexion (C6) 5 Normal Extension (C7) 5 Normal Pronation 5 Normal Supination 5 Normal Right Comments Deferred at this time PT-OP-Q Treatments Start: 05/27/20 07:20 Freq: Status: Active Protocol: Document 05/31/20 09:45 MB (Rec: 05/31/20 10:04 MB [id number]) Gait Training Gait Activity Gait without AD Comments Pt presents with decreased arm swing B with gait and mild imbalance with functional leg length difference. Gait in hallway with sling doffed and gait belt on and PT on pt's right side: gait train at least 600 feet Manual Therapy Treatment Other Other Manual Treatments Right pect positional release, gentle lavage right UE from distal arm to proximal arm, gentle STM over scar, upper traps STM, right shoulder rotator STM PT-OP-T Assessment and Plan Start: 05/27/20 07:20 Freq: Status: Active Protocol: Document 05/31/20 09:45 MB (Rec: 05/31/20 10:04 MB [id number]) Physical Therapy Assessment Rehab Potential Rehabilitation Potential Good Evaluation Complexity Number of Personal Factors/Comorbidities 1-2 Number of Body Systems Impaired 1-2 Clinical Presentation at Evaluation Stable Impairments Impairments Activity Tolerance,Balance, Coordination,Edema,Functional Activities,Integument,Pain, Posture,ROM,Soft Tissue Mobility,Strength Goals 5 Hvac Mechanical Engineer Goal (LTG) Pt will be able to don and doff bra and shirt without zipper or buttons with I by 07/27/20. LTG Duration 8 weeks 4 Hvac Mechanical Engineer Goal (LTG) Pt will be able to tie her shoes using both hands by . LTG Duration 8 weeks 3 Hvac Mechanical Engineer Goal (LTG) Pt will perform progressive HEP with I including postural and alignment, flexibility, ROM and strengthenging exercises to improve right UE function by 07/27/20. LTG Duration 8 weeks 2 Hvac Mechanical Engineer Goal (LTG) Pt will present with improved right shoulder AROM to at least 120 deg flexion and abduction and PROM ER and IR to 40 deg to improve functional use of her right arm by 07/27/20. LTG Duration 8 weeks 1 Senior Care Goal (LTG) Pt will present with an improved QuickDASH score to no more than 20% to reflect improved functional mobility and use of her right arm by 07/27/20. LTG Duration 8 weeks Assessment Summary Assessment Pt presents with decreased arm swing B with gait and mild imbalance with functional leg length difference. Will consider pelvic realignment exercises to help with gait and balance. Still do not have second protocol page and will con't to defer AAROM. Manual work today to help with edema and pain and pt responds well today. Physical Therapy Plan Frequency and Duration Frequency of Treatment 2x/Week Duration of Treatment 8 weeks Plan of Care Start Date 05/27/20 Plan of Care End Date 07/29/20 Therapeutic Interventions Therapeutic Interventions Balance Training,Canalithic Repositioning,Coordination Training,Gait Training,Home Exercise Program,Joint Mobilizations,Manual Therapy, Neuromuscular Re-education, Patient/Caregiver Education, Self-Care/Home Management, Sensory Integration,Soft Tissue Mobilization,Taping, Therapeutic Activities, Therapeutic Exercises Modalities Cold Pack/Ice Massage,Electric Stimulation,Hot Packs, Ultrasound Next Visit Focus/Plan Next Note Type Treatment Note Next Visit Plan Consider racquet ball massage, scapular retraction and thoracic lift, cervical and other thoracic exercises, gait and balance, pelvic realignment
--- NOTE | 2020-05-31 11:25 | PT.OPPOC ---
Physical, Occupational & Speech Therapy At [facility] Current Diagnoses Other displaced fracture of upper end of right humerus, initial encounter for closed fracture (05/31/20) Visit Care Team Role Provider Type Yvan Stewart MD Family Provider Physician Primary Care Provider Specialty: Family Practice Address: [address] [place] [address], [facility] [place], [address] Email: [email or web address] Jennifer Parish MD Attending Provider Physician Referring Provider Specialty: Orthopedics Address: [address] [place] [address], [address] Email: [email or web address] Plan Of Care PT-OP-T Assessment and Plan Start: 05/27/20 07:20 Freq: Status: Active Protocol: Document 05/31/20 09:45 MB (Rec: 05/31/20 10:04 MB [id number]) Physical Therapy Assessment Rehab Potential Rehabilitation Potential Good Evaluation Complexity Number of Personal Factors/Comorbidities 1-2 Number of Body Systems Impaired 1-2 Clinical Presentation at Evaluation Stable Impairments Impairments Activity Tolerance,Balance, Coordination,Edema,Functional Activities,Integument,Pain, Posture,ROM,Soft Tissue Mobility,Strength Goals 5 Moccasin Sewer Goal (LTG) Pt will be able to don and doff bra and shirt without zipper or buttons with I by 07/27/20. LTG Duration 8 weeks 4 Fpc Goal (LTG) Pt will be able to tie her shoes using both hands by . LTG Duration 8 weeks 3 Moccasin Sewer Goal (LTG) Pt will perform progressive HEP with I including postural and alignment, flexibility, ROM and strengthenging exercises to improve right UE function by 07/27/20. LTG Duration 8 weeks 2 Fpc Goal (LTG) Pt will present with improved right shoulder AROM to at least 120 deg flexion and abduction and PROM ER and IR to 40 deg to improve functional use of her right arm by 07/27/20. LTG Duration 8 weeks 1 Moccasin Sewer Goal (LTG) Pt will present with an improved QuickDASH score to no more than 20% to reflect improved functional mobility and use of her right arm by 07/27/20. LTG Duration 8 weeks Assessment Summary Assessment Pt presents with decreased arm swing B with gait and mild imbalance with functional leg length difference. Will consider pelvic realignment exercises to help with gait and balance. Still do not have second protocol page and will con't to defer AAROM. Manual work today to help with edema and pain and pt responds well today. Physical Therapy Plan Frequency and Duration Frequency of Treatment 2x/Week Duration of Treatment 8 weeks Plan of Care Start Date 05/27/20 Plan of Care End Date 07/29/20 Therapeutic Interventions Therapeutic Interventions Balance Training,Canalithic Repositioning,Coordination Training,Gait Training,Home Exercise Program,Joint Mobilizations,Manual Therapy, Neuromuscular Re-education, Patient/Caregiver Education, Self-Care/Home Management, Sensory Integration,Soft Tissue Mobilization,Taping, Therapeutic Activities, Therapeutic Exercises Modalities Cold Pack/Ice Massage,Electric Stimulation,Hot Packs, Ultrasound Next Visit Focus/Plan Next Note Type Treatment Note Next Visit Plan Consider racquet ball massage, scapular retraction and thoracic lift, cervical and other thoracic exercises, gait and balance, pelvic realignment Plan of Care Dates Plan of Care Start Date 05/27/20 Plan of Care End Date 07/29/20 Electronically Signed by: Darcie Wagner PT 05/31/20 [id number] Please Sign and Return: I have reviewed this Plan of Care and certify that the skilled therapy services above are required to meet the patient?s needs. Physician Signature Date Printed Name and Credentials Clinical Instructor Signature Printed Name and Credentials
--- NOTE | 2020-06-03 08:12 | PT.OTN ---
Current Diagnoses Other displaced fracture of upper end of right humerus, initial encounter for closed fracture (06/03/20) Physical Therapy Treatment Note PT-OP-A Visit Information Start: 05/27/20 07:20 Freq: Status: Active Protocol: Document 06/03/20 07:33 MB (Rec: 06/03/20 08:10 MB [id number]) Out-Patient Physical Therapy Visit Information Visit Information Visit Type Treatment Note Visit Note Medicare AARP Visit Start Time 07:33 Visit Stop Time 08:11 Total Visit Minutes 38 Visit Number 3 Precautions Precautions Order 05/22/20: Restrictions: AROM x6 week. Follow protocol. Protocol: For 6 weeks. Pendulums, range of motion started 2 weeks. Discontinue sling starting at 6 weeks with weaning. Resisted exercises start after 6 weeks. PT-OP-B Current Condition Start: 05/27/20 07:20 Freq: Status: Active Protocol: Document 05/27/20 09:47 MB (Rec: 05/27/20 10:22 MB [id number]) Current Condition History of Current Condition Onset Date 05/10/20 Current Complaints Right arm discomfort and disuse History of Current Condition Pt reports that on 05/10/20, she had a fall off a short ladder onto her right shoulder . She had heard a noise. She went to the ED and was found to have a humeral fracture. She underwent an ORIF on . Pt has worn the sling since 05/11/20 and was told at her post-op with Dr. Parish on 05/22/20 that she should wear the sling for 4 more weeks and con't pendulums. Pt sees the surgeon again 06/17. She is right handed. She has no numbness or tingling. Pt reports 3/10 right shoulder pain and 2/10 left hip pain. Pt reports a history of osteopenia, arthritis, back pain, high BP. Pt has been sleeping in a recliner chair. She tried sleeping in the bed on her left last night and slept better. Prior Treatments and Tests PT in the past and was told that she had one leg longer than the other and has exercises Treatment Goals Patient/Caregiver Goals To decrease right arm discomfort and improve use PT-OP-C Subjective Start: 05/27/20 07:20 Freq: Status: Active Protocol: Document 06/03/20 07:33 MB (Rec: 06/03/20 08:10 MB [id number]) OP-PT Subjective Patient Comments Patient Comments I'm feeling more positive. PT-OP-J Posture/Palpation/Skin Start: 05/27/20 07:20 Freq: Status: Active Protocol: Document 05/27/20 09:47 MB (Rec: 05/27/20 12:57 MB [id number]) Posture Evaluation Comments Posture Comments Pt standing: right arm edematous with yellowish ecchymosis around elbow and edema is pitting in forearm area, post-op incision healing anteromedial proximal arm grossly 4, right AC joint 2 in front of tragus, pt with spinal curvature changes with translation to the left upper body and convexity to the right at thoracic spine, right iliac crest is higher than the left, increased valgus left knee with left foot overpronation. PT-OP-K Range of Motion Start: 05/27/20 07:20 Freq: Status: Active Protocol: Document 05/27/20 09:47 MB (Rec: 05/27/20 12:57 MB [id number]) Cervical Spine Range of Motion Cervical Spine Active Testing Position Standing Rotation Left 45 Rotation Right 50 Lateral Flexion Left 25 Lateral Flexion Right 25 Shoulder Goniometric Range of Motion Shoulder Right Shoulder ROM WFL No Testing Position Supine Comments AROM deferred post-op 15-16 days per doctor's order Supine PROM flexion to 45 deg, abduction to 30 deg, pt guarding movement. ER and IR in 30 deg abduction: ER 0 deg and IR 5 deg Left shoulder Shoulder ROM WFL Yes Testing Position Standing Comments Supine PROM with shoulder in 90/90: ER 60 and IR 45 deg PT-OP-M Strength Start: 05/27/20 07:20 Freq: Status: Active Protocol: Document 05/27/20 09:47 MB (Rec: 05/27/20 12:57 MB [id number]) Shoulder Strength Shoulder Manual Muscle Testing Left Flexion 5 Normal Abduction (C5) 5 Normal External Rotation 4 Good Internal Rotation 4 Good Right Comments All MMT deferred at this time Elbow/Forearm Strength Elbow and Forearm Manual Muscle Testing Left Flexion (C6) 5 Normal Extension (C7) 5 Normal Pronation 5 Normal Supination 5 Normal Right Comments Deferred at this time PT-OP-Q Treatments Start: 05/27/20 07:20 Freq: Status: Active Protocol: Document 06/03/20 07:33 MB (Rec: 06/03/20 08:10 MB [id number]) Therapeutic Exercises Sitting Exercises Thoracic rotation Side bilateral Comments 3 reps, breathe end-range Scapular retraction Side bilateral Comments 5 reps slowly Putty squeeze Sitting Exercise Name Active motion squeezing green putty, elbow flexion, ext, pron, supination Side right Comments Wrist flexion and extension, 20 reps Standing Exercises Racquet ball STM Standing Exercise Name Over intrascapular muscles, infraspinatus, MWM upper traps Comments Right side, ed and provided handout Gait Training Gait Activity 6MWT Comments Close superv, right arm dangling and minimal swing, occ scuffs left foot, 1132 feet in 6 minutes PT-OP-T Assessment and Plan Start: 05/27/20 07:20 Freq: Status: Active Protocol: Document 06/03/20 07:33 MB (Rec: 06/03/20 08:10 MB [id number]) Physical Therapy Assessment Rehab Potential Rehabilitation Potential Good Evaluation Complexity Number of Personal Factors/Comorbidities 1-2 Number of Body Systems Impaired 1-2 Clinical Presentation at Evaluation Stable Impairments Impairments Activity Tolerance,Balance, Coordination,Edema,Functional Activities,Integument,Pain, Posture,ROM,Soft Tissue Mobility,Strength Goals 5 Jail Goal (LTG) Pt will be able to don and doff bra and shirt without zipper or buttons with I by 07/27/20. LTG Duration 8 weeks 4 Mortgage Loan Originator Goal (LTG) Pt will be able to tie her shoes using both hands by . LTG Duration 8 weeks 3 Mortgage Loan Originator Goal (LTG) Pt will perform progressive HEP with I including postural and alignment, flexibility, ROM and strengthenging exercises to improve right UE function by 07/27/20. LTG Duration 8 weeks 2 Jail Goal (LTG) Pt will present with improved right shoulder AROM to at least 120 deg flexion and abduction and PROM ER and IR to 40 deg to improve functional use of her right arm by 07/27/20. LTG Duration 8 weeks 1 Jail Goal (LTG) Pt will present with an improved QuickDASH score to no more than 20% to reflect improved functional mobility and use of her right arm by 07/27/20. LTG Duration 8 weeks Assessment Summary Assessment Improved gait today and will con't to assess to improve balance and safety with community ambulation. Added racquet ball self-massage and active wrist and elbow exercies in sitting. Physical Therapy Plan Frequency and Duration Frequency of Treatment 2x/Week Duration of Treatment 8 weeks Plan of Care Start Date 05/27/20 Plan of Care End Date 07/29/20 Therapeutic Interventions Therapeutic Interventions Balance Training,Canalithic Repositioning,Coordination Training,Gait Training,Home Exercise Program,Joint Mobilizations,Manual Therapy, Neuromuscular Re-education, Patient/Caregiver Education, Self-Care/Home Management, Sensory Integration,Soft Tissue Mobilization,Taping, Therapeutic Activities, Therapeutic Exercises Modalities Cold Pack/Ice Massage,Electric Stimulation,Hot Packs, Ultrasound Next Visit Focus/Plan Next Note Type Treatment Note Next Visit Plan Consider thoracic exercises, gait and balance, pelvic realignment
--- NOTE | 2020-06-07 09:46 | PT.OTN ---
Current Diagnoses Other displaced fracture of upper end of right humerus, initial encounter for closed fracture (06/07/20) Physical Therapy Treatment Note PT-OP-A Visit Information Start: 05/27/20 07:20 Freq: Status: Active Protocol: Document 06/07/20 09:01 MB (Rec: 06/07/20 09:23 MB [id number]) Out-Patient Physical Therapy Visit Information Visit Information Visit Type Treatment Note Visit Note Medicare AARP Visit Start Time 09:01 Visit Stop Time 09:43 Total Visit Minutes 42 Visit Number 4 Precautions Precautions Order 05/22/20: Restrictions: AROM x6 week. Follow protocol. Protocol: For 6 weeks. Pendulums, range of motion started 2 weeks. Discontinue sling starting at 6 weeks with weaning. Resisted exercises start after 6 weeks. PT-OP-B Current Condition Start: 05/27/20 07:20 Freq: Status: Active Protocol: Document 05/27/20 09:47 MB (Rec: 05/27/20 10:22 MB [id number]) Current Condition History of Current Condition Onset Date 05/10/20 Current Complaints Right arm discomfort and disuse History of Current Condition Pt reports that on 05/10/20, she had a fall off a short ladder onto her right shoulder . She had heard a noise. She went to the ED and was found to have a humeral fracture. She underwent an ORIF on . Pt has worn the sling since 05/11/20 and was told at her post-op with Dr. Parish on 05/22/20 that she should wear the sling for 4 more weeks and con't pendulums. Pt sees the surgeon again 06/17. She is right handed. She has no numbness or tingling. Pt reports 3/10 right shoulder pain and 2/10 left hip pain. Pt reports a history of osteopenia, arthritis, back pain, high BP. Pt has been sleeping in a recliner chair. She tried sleeping in the bed on her left last night and slept better. Prior Treatments and Tests PT in the past and was told that she had one leg longer than the other and has exercises Treatment Goals Patient/Caregiver Goals To decrease right arm discomfort and improve use PT-OP-C Subjective Start: 05/27/20 07:20 Freq: Status: Active Protocol: Document 06/07/20 09:01 MB (Rec: 06/07/20 09:23 MB [id number]) OP-PT Subjective Patient Comments Patient Comments I went to [facility] and walked along the [place]. It was nice. PT-OP-J Posture/Palpation/Skin Start: 05/27/20 07:20 Freq: Status: Active Protocol: Document 05/27/20 09:47 MB (Rec: 05/27/20 12:57 MB [id number]) Posture Evaluation Comments Posture Comments Pt standing: right arm edematous with yellowish ecchymosis around elbow and edema is pitting in forearm area, post-op incision healing anteromedial proximal arm grossly 4, right AC joint 2 in front of tragus, pt with spinal curvature changes with translation to the left upper body and convexity to the right at thoracic spine, right iliac crest is higher than the left, increased valgus left knee with left foot overpronation. PT-OP-K Range of Motion Start: 05/27/20 07:20 Freq: Status: Active Protocol: Document 05/27/20 09:47 MB (Rec: 05/27/20 12:57 MB [id number]) Cervical Spine Range of Motion Cervical Spine Active Testing Position Standing Rotation Left 45 Rotation Right 50 Lateral Flexion Left 25 Lateral Flexion Right 25 Shoulder Goniometric Range of Motion Shoulder Right Shoulder ROM WFL No Testing Position Supine Comments AROM deferred post-op 15-16 days per doctor's order Supine PROM flexion to 45 deg, abduction to 30 deg, pt guarding movement. ER and IR in 30 deg abduction: ER 0 deg and IR 5 deg Left shoulder Shoulder ROM WFL Yes Testing Position Standing Comments Supine PROM with shoulder in 90/90: ER 60 and IR 45 deg PT-OP-M Strength Start: 05/27/20 07:20 Freq: Status: Active Protocol: Document 05/27/20 09:47 MB (Rec: 05/27/20 12:57 MB [id number]) Shoulder Strength Shoulder Manual Muscle Testing Left Flexion 5 Normal Abduction (C5) 5 Normal External Rotation 4 Good Internal Rotation 4 Good Right Comments All MMT deferred at this time Elbow/Forearm Strength Elbow and Forearm Manual Muscle Testing Left Flexion (C6) 5 Normal Extension (C7) 5 Normal Pronation 5 Normal Supination 5 Normal Right Comments Deferred at this time PT-OP-Q Treatments Start: 05/27/20 07:20 Freq: Status: Active Protocol: Document 06/07/20 09:01 MB (Rec: 06/07/20 09:23 MB [id number]) Therapeutic Exercises Supine Exercises Pelvic realignment exercises Side bilateral Comments 5 reps, 3 sec hold all exercises Gait Training Gait Activity [id number] Comments Close superv, pt walking clockwise and gentle right arm swing with arm out of sling, gait distance improves to 1219 feet Manual Therapy Treatment Other Other Manual Treatments Right pect positional release, gentle lavage right UE from distal arm to proximal arm, gentle STM over scar, upper traps STM, right shoulder rotator STM PT-OP-T Assessment and Plan Start: 05/27/20 07:20 Freq: Status: Active Protocol: Document 06/07/20 09:01 MB (Rec: 06/07/20 09:23 MB [id number]) Physical Therapy Assessment Rehab Potential Rehabilitation Potential Good Evaluation Complexity Number of Personal Factors/Comorbidities 1-2 Number of Body Systems Impaired 1-2 Clinical Presentation at Evaluation Stable Impairments Impairments Activity Tolerance,Balance, Coordination,Edema,Functional Activities,Integument,Pain, Posture,ROM,Soft Tissue Mobility,Strength Goals 5 Monotype Mechanic Goal (LTG) Pt will be able to don and doff bra and shirt without zipper or buttons with I by 07/27/20. LTG Duration 8 weeks 4 Monotype Mechanic Goal (LTG) Pt will be able to tie her shoes using both hands by . LTG Duration 8 weeks 3 Monotype Mechanic Goal (LTG) Pt will perform progressive HEP with I including postural and alignment, flexibility, ROM and strengthenging exercises to improve right UE function by 07/27/20. LTG Duration 8 weeks 2 Halfway Goal (LTG) Pt will present with improved right shoulder AROM to at least 120 deg flexion and abduction and PROM ER and IR to 40 deg to improve functional use of her right arm by 07/27/20. LTG Duration 8 weeks 1 Monotype Mechanic Goal (LTG) Pt will present with an improved QuickDASH score to no more than 20% to reflect improved functional mobility and use of her right arm by 07/27/20. LTG Duration 8 weeks Assessment Summary Assessment 6MWT and other gait today is improved with a little right arm swing and distance. Initiated pelvic realignment exercises today and pt uses gait belt and left hand for third exercise. Manual work today as well was helpful. Physical Therapy Plan Frequency and Duration Frequency of Treatment 2x/Week Duration of Treatment 8 weeks Plan of Care Start Date 05/27/20 Plan of Care End Date 07/29/20 Therapeutic Interventions Therapeutic Interventions Balance Training,Canalithic Repositioning,Coordination Training,Gait Training,Home Exercise Program,Joint Mobilizations,Manual Therapy, Neuromuscular Re-education, Patient/Caregiver Education, Self-Care/Home Management, Sensory Integration,Soft Tissue Mobilization,Taping, Therapeutic Activities, Therapeutic Exercises Modalities Cold Pack/Ice Massage,Electric Stimulation,Hot Packs, Ultrasound Next Visit Focus/Plan Next Note Type Treatment Note Next Visit Plan Consider thoracic exercises, gait and balance, ongoing manual work
--- NOTE | 2020-06-12 10:29 | PT.OTN ---
Current Diagnoses Other displaced fracture of upper end of right humerus, initial encounter for closed fracture (06/12/20) Physical Therapy Treatment Note PT-OP-A Visit Information Start: 05/27/20 07:20 Freq: Status: Active Protocol: Document 06/12/20 09:45 MB (Rec: 06/12/20 10:28 MB [id number]) Out-Patient Physical Therapy Visit Information Visit Information Visit Type Treatment Note Visit Note Medicare AARP Visit Start Time 09:45 Visit Stop Time 10:25 Total Visit Minutes 40 Visit Number 5 Precautions Precautions Order 05/22/20: Restrictions: AROM x6 week. Follow protocol. Protocol: For 6 weeks. Pendulums, range of motion started 2 weeks. Discontinue sling starting at 6 weeks with weaning. Resisted exercises start after 6 weeks. PT-OP-B Current Condition Start: 05/27/20 07:20 Freq: Status: Active Protocol: Document 05/27/20 09:47 MB (Rec: 05/27/20 10:22 MB [id number]) Current Condition History of Current Condition Onset Date 05/10/20 Current Complaints Right arm discomfort and disuse History of Current Condition Pt reports that on 05/10/20, she had a fall off a short ladder onto her right shoulder . She had heard a noise. She went to the ED and was found to have a humeral fracture. She underwent an ORIF on . Pt has worn the sling since 05/11/20 and was told at her post-op with Dr. Parish on 05/22/20 that she should wear the sling for 4 more weeks and con't pendulums. Pt sees the surgeon again 06/17. She is right handed. She has no numbness or tingling. Pt reports 3/10 right shoulder pain and 2/10 left hip pain. Pt reports a history of osteopenia, arthritis, back pain, high BP. Pt has been sleeping in a recliner chair. She tried sleeping in the bed on her left last night and slept better. Prior Treatments and Tests PT in the past and was told that she had one leg longer than the other and has exercises Treatment Goals Patient/Caregiver Goals To decrease right arm discomfort and improve use PT-OP-C Subjective Start: 05/27/20 07:20 Freq: Status: Active Protocol: Document 06/12/20 09:45 MB (Rec: 06/12/20 10:28 MB [id number]) OP-PT Subjective Patient Comments Patient Comments Very well when PT asks pt how she is feeling. PT-OP-J Posture/Palpation/Skin Start: 05/27/20 07:20 Freq: Status: Active Protocol: Document 05/27/20 09:47 MB (Rec: 05/27/20 12:57 MB [id number]) Posture Evaluation Comments Posture Comments Pt standing: right arm edematous with yellowish ecchymosis around elbow and edema is pitting in forearm area, post-op incision healing anteromedial proximal arm grossly 4, right AC joint 2 in front of tragus, pt with spinal curvature changes with translation to the left upper body and convexity to the right at thoracic spine, right iliac crest is higher than the left, increased valgus left knee with left foot overpronation. PT-OP-K Range of Motion Start: 05/27/20 07:20 Freq: Status: Active Protocol: Document 05/27/20 09:47 MB (Rec: 05/27/20 12:57 MB [id number]) Cervical Spine Range of Motion Cervical Spine Active Testing Position Standing Rotation Left 45 Rotation Right 50 Lateral Flexion Left 25 Lateral Flexion Right 25 Shoulder Goniometric Range of Motion Shoulder Right Shoulder ROM WFL No Testing Position Supine Comments AROM deferred post-op 15-16 days per doctor's order Supine PROM flexion to 45 deg, abduction to 30 deg, pt guarding movement. ER and IR in 30 deg abduction: ER 0 deg and IR 5 deg Left shoulder Shoulder ROM WFL Yes Testing Position Standing Comments Supine PROM with shoulder in 90/90: ER 60 and IR 45 deg PT-OP-M Strength Start: 05/27/20 07:20 Freq: Status: Active Protocol: Document 05/27/20 09:47 MB (Rec: 05/27/20 12:57 MB [id number]) Shoulder Strength Shoulder Manual Muscle Testing Left Flexion 5 Normal Abduction (C5) 5 Normal External Rotation 4 Good Internal Rotation 4 Good Right Comments All MMT deferred at this time Elbow/Forearm Strength Elbow and Forearm Manual Muscle Testing Left Flexion (C6) 5 Normal Extension (C7) 5 Normal Pronation 5 Normal Supination 5 Normal Right Comments Deferred at this time PT-OP-Q Treatments Start: 05/27/20 07:20 Freq: Status: Active Protocol: Document 06/12/20 09:45 MB (Rec: 06/12/20 10:28 MB [id number]) Gait Training Gait Activity 6MWT Comments Close superv, pt walking counter-clockwise and gentle right arm swing with arm out of sling, gait distance improves to 1404 feet Gait throughout treatment with similar gait pattern, several more minutes after 6 minutes Manual Therapy Treatment Other Other Manual Treatments Right pect positional release, gentle lavage right UE from distal arm to proximal arm, gentle STM over scar, right forearm discoloring and fascial tension is improved compared to previous treatment dates PT-OP-T Assessment and Plan Start: 05/27/20 07:20 Freq: Status: Active Protocol: Document 06/12/20 09:45 MB (Rec: 06/12/20 10:28 MB [id number]) Physical Therapy Assessment Rehab Potential Rehabilitation Potential Good Evaluation Complexity Number of Personal Factors/Comorbidities 1-2 Number of Body Systems Impaired 1-2 Clinical Presentation at Evaluation Stable Impairments Impairments Activity Tolerance,Balance, Coordination,Edema,Functional Activities,Integument,Pain, Posture,ROM,Soft Tissue Mobility,Strength Goals 5 [facility] Goal (LTG) Pt will be able to don and doff bra and shirt without zipper or buttons with I by 07/27/20. LTG Duration 8 weeks 4 [facility] Goal (LTG) Pt will be able to tie her shoes using both hands by . LTG Duration 8 weeks 3 Reading Coach Goal (LTG) Pt will perform progressive HEP with I including postural and alignment, flexibility, ROM and strengthenging exercises to improve right UE function by 07/27/20. LTG Duration 8 weeks 2 [facility] Goal (LTG) Pt will present with improved right shoulder AROM to at least 120 deg flexion and abduction and PROM ER and IR to 40 deg to improve functional use of her right arm by 07/27/20. LTG Duration 8 weeks 1 [facility] Goal (LTG) Pt will present with an improved QuickDASH score to no more than 20% to reflect improved functional mobility and use of her right arm by 07/27/20. LTG Duration 8 weeks Assessment Summary Assessment Pt is 4 weeks and 1 day out of surgery. She is hoping to do more with PT and PT reveiws protocol with her today. Will consider adding cane AAROM next traetment date in supine, further thoracic exercises. Physical Therapy Plan Frequency and Duration Frequency of Treatment 2x/Week Duration of Treatment 8 weeks Plan of Care Start Date 05/27/20 Plan of Care End Date 07/29/20 Therapeutic Interventions Therapeutic Interventions Balance Training,Canalithic Repositioning,Coordination Training,Gait Training,Home Exercise Program,Joint Mobilizations,Manual Therapy, Neuromuscular Re-education, Patient/Caregiver Education, Self-Care/Home Management, Sensory Integration,Soft Tissue Mobilization,Taping, Therapeutic Activities, Therapeutic Exercises Modalities Cold Pack/Ice Massage,Electric Stimulation,Hot Packs, Ultrasound Next Visit Focus/Plan Next Note Type Treatment Note Next Visit Plan AAROM with cane in hook lying, thoracic exercises, gait and balance, ongoing manual work
--- NOTE | 2020-06-14 08:56 | PT.OTN ---
Current Diagnoses Other displaced fracture of upper end of right humerus, initial encounter for closed fracture (06/14/20) Physical Therapy Treatment Note PT-OP-A Visit Information Start: 05/27/20 07:20 Freq: Status: Active Protocol: Document 06/14/20 08:17 MB (Rec: 06/14/20 08:55 MB [id number]) Out-Patient Physical Therapy Visit Information Visit Information Visit Type Treatment Note Visit Note Medicare AARP Visit Start Time 08:17 Visit Stop Time 08:46 Total Visit Minutes 39 Visit Number 6 Precautions Precautions Order 05/22/20: Restrictions: AROM x6 week. Follow protocol. Protocol: For 6 weeks. Pendulums, range of motion started 2 weeks. Discontinue sling starting at 6 weeks with weaning. Resisted exercises start after 6 weeks. PT-OP-B Current Condition Start: 05/27/20 07:20 Freq: Status: Active Protocol: Document 05/27/20 09:47 MB (Rec: 05/27/20 10:22 MB [id number]) Current Condition History of Current Condition Onset Date 05/10/20 Current Complaints Right arm discomfort and disuse History of Current Condition Pt reports that on 05/10/20, she had a fall off a short ladder onto her right shoulder . She had heard a noise. She went to the ED and was found to have a humeral fracture. She underwent an ORIF on . Pt has worn the sling since 05/11/20 and was told at her post-op with Dr. Parish on 05/22/20 that she should wear the sling for 4 more weeks and con't pendulums. Pt sees the surgeon again 06/17. She is right handed. She has no numbness or tingling. Pt reports 3/10 right shoulder pain and 2/10 left hip pain. Pt reports a history of osteopenia, arthritis, back pain, high BP. Pt has been sleeping in a recliner chair. She tried sleeping in the bed on her left last night and slept better. Prior Treatments and Tests PT in the past and was told that she had one leg longer than the other and has exercises Treatment Goals Patient/Caregiver Goals To decrease right arm discomfort and improve use PT-OP-C Subjective Start: 05/27/20 07:20 Freq: Status: Active Protocol: Document 06/14/20 08:17 MB (Rec: 06/14/20 08:55 MB [id number]) OP-PT Subjective Patient Comments Patient Comments Pt states that she is feeling fine. PT-OP-J Posture/Palpation/Skin Start: 05/27/20 07:20 Freq: Status: Active Protocol: Document 05/27/20 09:47 MB (Rec: 05/27/20 12:57 MB [id number]) Posture Evaluation Comments Posture Comments Pt standing: right arm edematous with yellowish ecchymosis around elbow and edema is pitting in forearm area, post-op incision healing anteromedial proximal arm grossly 4, right AC joint 2 in front of tragus, pt with spinal curvature changes with translation to the left upper body and convexity to the right at thoracic spine, right iliac crest is higher than the left, increased valgus left knee with left foot overpronation. PT-OP-K Range of Motion Start: 05/27/20 07:20 Freq: Status: Active Protocol: Document 05/27/20 09:47 MB (Rec: 05/27/20 12:57 MB [id number]) Cervical Spine Range of Motion Cervical Spine Active Testing Position Standing Rotation Left 45 Rotation Right 50 Lateral Flexion Left 25 Lateral Flexion Right 25 Shoulder Goniometric Range of Motion Shoulder Right Shoulder ROM WFL No Testing Position Supine Comments AROM deferred post-op 15-16 days per doctor's order Supine PROM flexion to 45 deg, abduction to 30 deg, pt guarding movement. ER and IR in 30 deg abduction: ER 0 deg and IR 5 deg Left shoulder Shoulder ROM WFL Yes Testing Position Standing Comments Supine PROM with shoulder in 90/90: ER 60 and IR 45 deg PT-OP-M Strength Start: 05/27/20 07:20 Freq: Status: Active Protocol: Document 05/27/20 09:47 MB (Rec: 05/27/20 12:57 MB [id number]) Shoulder Strength Shoulder Manual Muscle Testing Left Flexion 5 Normal Abduction (C5) 5 Normal External Rotation 4 Good Internal Rotation 4 Good Right Comments All MMT deferred at this time Elbow/Forearm Strength Elbow and Forearm Manual Muscle Testing Left Flexion (C6) 5 Normal Extension (C7) 5 Normal Pronation 5 Normal Supination 5 Normal Right Comments Deferred at this time PT-OP-Q Treatments Start: 05/27/20 07:20 Freq: Status: Active Protocol: Document 06/14/20 08:17 MB (Rec: 06/14/20 08:55 MB [id number]) Therapeutic Exercises Supine Exercises AAROM with cane Supine Exercise Name Flexion and ER Side right Equipment Used Cane Reps/Minutes 10 reps x2 flexion, 10 reps reps ER Comments Flexion and ER today Sitting Exercises Thoracic rotation Side bilateral Comments Several second hold end-range for breathing and rib mobility x3 reps B Gait Training Gait Activity 6MWT Comments Gait is less confident, slower and more unsteady today. Clockwise gait and distance 1165 feet. Other gait trials during gait with similar presentation: decreased arm swing today. PT-OP-T Assessment and Plan Start: 05/27/20 07:20 Freq: Status: Active Protocol: Document 06/14/20 08:17 MB (Rec: 06/14/20 08:55 MB [id number]) Physical Therapy Assessment Rehab Potential Rehabilitation Potential Good Evaluation Complexity Number of Personal Factors/Comorbidities 1-2 Number of Body Systems Impaired 1-2 Clinical Presentation at Evaluation Stable Impairments Impairments Activity Tolerance,Balance, Coordination,Edema,Functional Activities,Integument,Pain, Posture,ROM,Soft Tissue Mobility,Strength Goals 5 Snf Goal (LTG) Pt will be able to don and doff bra and shirt without zipper or buttons with I by 07/27/20. LTG Duration 8 weeks 4 Oracle Security Consultant Goal (LTG) Pt will be able to tie her shoes using both hands by . LTG Duration 8 weeks 3 Snf Goal (LTG) Pt will perform progressive HEP with I including postural and alignment, flexibility, ROM and strengthenging exercises to improve right UE function by 07/27/20. LTG Duration 8 weeks 2 Snf Goal (LTG) Pt will present with improved right shoulder AROM to at least 120 deg flexion and abduction and PROM ER and IR to 40 deg to improve functional use of her right arm by 07/27/20. LTG Duration 8 weeks 1 Snf Goal (LTG) Pt will present with an improved QuickDASH score to no more than 20% to reflect improved functional mobility and use of her right arm by 07/27/20. LTG Duration 8 weeks Assessment Summary Assessment Progrossed to AAROM with cane in supine with head and neck supported today to move along with protocol and range. The exercises are difficult for pt and performed several reps slowly and with cues to keep it therapeutic and stop if she has pain. Physical Therapy Plan Frequency and Duration Frequency of Treatment 2x/Week Duration of Treatment 8 weeks Plan of Care Start Date 05/27/20 Plan of Care End Date 07/29/20 Therapeutic Interventions Therapeutic Interventions Balance Training,Canalithic Repositioning,Coordination Training,Gait Training,Home Exercise Program,Joint Mobilizations,Manual Therapy, Neuromuscular Re-education, Patient/Caregiver Education, Self-Care/Home Management, Sensory Integration,Soft Tissue Mobilization,Taping, Therapeutic Activities, Therapeutic Exercises Modalities Cold Pack/Ice Massage,Electric Stimulation,Hot Packs, Ultrasound Next Visit Focus/Plan Next Note Type Treatment Note Next Visit Plan Progress shoulder exercises as able per detailed protocol scanned in the EMR, consider progressing isometrics and thoracic mobility with soft kids ball as appropriate, gait and balance, ongoing manual work
--- NOTE | 2020-06-18 09:39 | PT.OTN ---
Current Diagnoses Other displaced fracture of upper end of right humerus, initial encounter for closed fracture (06/18/20) Physical Therapy Treatment Note PT-OP-A Visit Information Start: 05/27/20 07:20 Freq: Status: Active Protocol: Document 06/18/20 08:54 MB (Rec: 06/18/20 09:38 MB [id number]) Out-Patient Physical Therapy Visit Information Visit Information Visit Type Treatment Note Visit Note Medicare AARP Visit Start Time 08:54 Visit Stop Time 09:34 Total Visit Minutes 40 Visit Number 7 Precautions Precautions Order 05/22/20: Restrictions: AROM x6 week. Follow protocol. Protocol: For 6 weeks. Pendulums, range of motion started 2 weeks. Discontinue sling starting at 6 weeks with weaning. Resisted exercises start after 6 weeks. PT-OP-B Current Condition Start: 05/27/20 07:20 Freq: Status: Active Protocol: Document 05/27/20 09:47 MB (Rec: 05/27/20 10:22 MB [id number]) Current Condition History of Current Condition Onset Date 05/10/20 Current Complaints Right arm discomfort and disuse History of Current Condition Pt reports that on 05/10/20, she had a fall off a short ladder onto her right shoulder . She had heard a noise. She went to the ED and was found to have a humeral fracture. She underwent an ORIF on . Pt has worn the sling since 05/11/20 and was told at her post-op with Dr. Parish on 05/22/20 that she should wear the sling for 4 more weeks and con't pendulums. Pt sees the surgeon again 06/17. She is right handed. She has no numbness or tingling. Pt reports 3/10 right shoulder pain and 2/10 left hip pain. Pt reports a history of osteopenia, arthritis, back pain, high BP. Pt has been sleeping in a recliner chair. She tried sleeping in the bed on her left last night and slept better. Prior Treatments and Tests PT in the past and was told that she had one leg longer than the other and has exercises Treatment Goals Patient/Caregiver Goals To decrease right arm discomfort and improve use PT-OP-C Subjective Start: 05/27/20 07:20 Freq: Status: Active Protocol: Document 06/18/20 08:54 MB (Rec: 06/18/20 09:38 MB [id number]) OP-PT Subjective Patient Comments Patient Comments Pt likes the cane exercises because she feels like she is doing something. PT-OP-J Posture/Palpation/Skin Start: 05/27/20 07:20 Freq: Status: Active Protocol: Document 05/27/20 09:47 MB (Rec: 05/27/20 12:57 MB [id number]) Posture Evaluation Comments Posture Comments Pt standing: right arm edematous with yellowish ecchymosis around elbow and edema is pitting in forearm area, post-op incision healing anteromedial proximal arm grossly 4, right AC joint 2 in front of tragus, pt with spinal curvature changes with translation to the left upper body and convexity to the right at thoracic spine, right iliac crest is higher than the left, increased valgus left knee with left foot overpronation. PT-OP-K Range of Motion Start: 05/27/20 07:20 Freq: Status: Active Protocol: Document 05/27/20 09:47 MB (Rec: 05/27/20 12:57 MB [id number]) Cervical Spine Range of Motion Cervical Spine Active Testing Position Standing Rotation Left 45 Rotation Right 50 Lateral Flexion Left 25 Lateral Flexion Right 25 Shoulder Goniometric Range of Motion Shoulder Right Shoulder ROM WFL No Testing Position Supine Comments AROM deferred post-op 15-16 days per doctor's order Supine PROM flexion to 45 deg, abduction to 30 deg, pt guarding movement. ER and IR in 30 deg abduction: ER 0 deg and IR 5 deg Left shoulder Shoulder ROM WFL Yes Testing Position Standing Comments Supine PROM with shoulder in 90/90: ER 60 and IR 45 deg PT-OP-M Strength Start: 05/27/20 07:20 Freq: Status: Active Protocol: Document 05/27/20 09:47 MB (Rec: 05/27/20 12:57 MB [id number]) Shoulder Strength Shoulder Manual Muscle Testing Left Flexion 5 Normal Abduction (C5) 5 Normal External Rotation 4 Good Internal Rotation 4 Good Right Comments All MMT deferred at this time Elbow/Forearm Strength Elbow and Forearm Manual Muscle Testing Left Flexion (C6) 5 Normal Extension (C7) 5 Normal Pronation 5 Normal Supination 5 Normal Right Comments Deferred at this time PT-OP-Q Treatments Start: 05/27/20 07:20 Freq: Status: Active Protocol: Document 06/18/20 08:54 MB (Rec: 06/18/20 09:38 MB [id number]) Therapeutic Exercises Supine Exercises AAROM with cane Supine Exercise Name Flexion and ER Side right Equipment Used Cane Reps/Minutes 10 reps x2 flexion, 10 reps reps ER Comments Flexion and ER today Standing Exercises Use kids' water ball for thoracic massage Comments Pt performs today Gait Training Gait Activity 6MWT Comments Clockwise gait and PT walking behind patient: 1263 feet and pt requires cues for path of walking, confidence and arm swing and ebony is a bit better today compared to last treatment date Manual Therapy Treatment Other Other Manual Treatments Right pect positional release, gentle lavage right UE from distal arm to proximal arm, gentle STM over scar, right forearm discoloring and fascial tension is improved compared to previous treatment dates Self-Care/Home Management Treatment Education Other Education Wrote out questions to ask surgeon tomorrow: May patient start going without the sling and not have to sleep in it? May we progress as patient tolerates with range of motion and strengthening? If so, please write order and send with patient. Ask surgeon's opinion about right forearm edeam and discoloration and driving. PT-OP-T Assessment and Plan Start: 05/27/20 07:20 Freq: Status: Active Protocol: Document 06/18/20 08:54 MB (Rec: 06/18/20 09:38 MB [id number]) Physical Therapy Assessment Rehab Potential Rehabilitation Potential Good Evaluation Complexity Number of Personal Factors/Comorbidities 1-2 Number of Body Systems Impaired 1-2 Clinical Presentation at Evaluation Stable Impairments Impairments Activity Tolerance,Balance, Coordination,Edema,Functional Activities,Integument,Pain, Posture,ROM,Soft Tissue Mobility,Strength Goals 5 Fdc Goal (LTG) Pt will be able to don and doff bra and shirt without zipper or buttons with I by 07/27/20. LTG Duration 8 weeks 4 Fdc Goal (LTG) Pt will be able to tie her shoes using both hands by . LTG Duration 8 weeks 3 Fdc Goal (LTG) Pt will perform progressive HEP with I including postural and alignment, flexibility, ROM and strengthenging exercises to improve right UE function by 07/27/20. LTG Duration 8 weeks 2 Fdc Goal (LTG) Pt will present with improved right shoulder AROM to at least 120 deg flexion and abduction and PROM ER and IR to 40 deg to improve functional use of her right arm by 07/27/20. LTG Duration 8 weeks 1 Pattern Weaver Goal (LTG) Pt will present with an improved QuickDASH score to no more than 20% to reflect improved functional mobility and use of her right arm by 07/27/20. LTG Duration 8 weeks Assessment Summary Assessment Overall, pt is doing well in the restrictions she currently has. Have progressed cane exercises for AAROM. She returns to surgeon tomorrow and have provided questions for pt to present to surgeon. She does have the discoloration and edema of her right forearm that is improving and with no diagnostics on injury. She presents with balance impairments with gait and so this is beneficial for PT to work on and we have been working on this. Would like to advance ROM and isometric exercises as pt tolerates. Will wait to see what surgeon provides at appointment tomorrow. Physical Therapy Plan Frequency and Duration Frequency of Treatment 2x/Week Duration of Treatment 8 weeks Plan of Care Start Date 05/27/20 Plan of Care End Date 07/29/20 Therapeutic Interventions Therapeutic Interventions Balance Training,Canalithic Repositioning,Coordination Training,Gait Training,Home Exercise Program,Joint Mobilizations,Manual Therapy, Neuromuscular Re-education, Patient/Caregiver Education, Self-Care/Home Management, Sensory Integration,Soft Tissue Mobilization,Taping, Therapeutic Activities, Therapeutic Exercises Modalities Cold Pack/Ice Massage,Electric Stimulation,Hot Packs, Ultrasound Next Visit Focus/Plan Next Note Type Treatment Note Next Visit Plan Progress shoulder exercises as able per detailed protocol scanned in the EMR, consider progressing isometrics and thoracic mobility with soft kids ball as appropriate, gait and balance, ongoing manual work
--- NOTE | 2020-06-21 09:00 | PT.OTN ---
Current Diagnoses Other displaced fracture of upper end of right humerus, initial encounter for closed fracture (06/21/20) Physical Therapy Treatment Note PT-OP-A Visit Information Start: 05/27/20 07:20 Freq: Status: Active Protocol: Document 06/21/20 08:16 MB (Rec: 06/21/20 08:56 MB [id number]) Out-Patient Physical Therapy Visit Information Visit Information Visit Type Treatment Note Visit Note Medicare AARP Visit Start Time 08:16 Visit Stop Time 08:56 Total Visit Minutes 40 Visit Number 8 Precautions Precautions Pt returned to surgeon. She was told she no longer has to wear the sling. The doctor circled phase III weeks 6-12 on post-op orders: progressive isometric and isotonic strengthening and scapular mobs PT-OP-B Current Condition Start: 05/27/20 07:20 Freq: Status: Active Protocol: Document 05/27/20 09:47 MB (Rec: 05/27/20 10:22 MB [id number]) Current Condition History of Current Condition Onset Date 05/10/20 Current Complaints Right arm discomfort and disuse History of Current Condition Pt reports that on 05/10/20, she had a fall off a short ladder onto her right shoulder . She had heard a noise. She went to the ED and was found to have a humeral fracture. She underwent an ORIF on . Pt has worn the sling since 05/11/20 and was told at her post-op with Dr. Parish on 05/22/20 that she should wear the sling for 4 more weeks and con't pendulums. Pt sees the surgeon again 06/17. She is right handed. She has no numbness or tingling. Pt reports 3/10 right shoulder pain and 2/10 left hip pain. Pt reports a history of osteopenia, arthritis, back pain, high BP. Pt has been sleeping in a recliner chair. She tried sleeping in the bed on her left last night and slept better. Prior Treatments and Tests PT in the past and was told that she had one leg longer than the other and has exercises Treatment Goals Patient/Caregiver Goals To decrease right arm discomfort and improve use PT-OP-C Subjective Start: 05/27/20 07:20 Freq: Status: Active Protocol: Document 06/21/20 08:16 MB (Rec: 06/21/20 08:56 MB [id number]) OP-PT Subjective Patient Comments Patient Comments Pt returned to the surgeon. She does not need to wear the sling and she can drive. She drove to PT today. PT-OP-J Posture/Palpation/Skin Start: 05/27/20 07:20 Freq: Status: Active Protocol: Document 05/27/20 09:47 MB (Rec: 05/27/20 12:57 MB [id number]) Posture Evaluation Comments Posture Comments Pt standing: right arm edematous with yellowish ecchymosis around elbow and edema is pitting in forearm area, post-op incision healing anteromedial proximal arm grossly 4, right AC joint 2 in front of tragus, pt with spinal curvature changes with translation to the left upper body and convexity to the right at thoracic spine, right iliac crest is higher than the left, increased valgus left knee with left foot overpronation. PT-OP-K Range of Motion Start: 05/27/20 07:20 Freq: Status: Active Protocol: Document 05/27/20 09:47 MB (Rec: 05/27/20 12:57 MB [id number]) Cervical Spine Range of Motion Cervical Spine Active Testing Position Standing Rotation Left 45 Rotation Right 50 Lateral Flexion Left 25 Lateral Flexion Right 25 Shoulder Goniometric Range of Motion Shoulder Right Shoulder ROM WFL No Testing Position Supine Comments AROM deferred post-op 15-16 days per doctor's order Supine PROM flexion to 45 deg, abduction to 30 deg, pt guarding movement. ER and IR in 30 deg abduction: ER 0 deg and IR 5 deg Left shoulder Shoulder ROM WFL Yes Testing Position Standing Comments Supine PROM with shoulder in 90/90: ER 60 and IR 45 deg PT-OP-M Strength Start: 05/27/20 07:20 Freq: Status: Active Protocol: Document 05/27/20 09:47 MB (Rec: 05/27/20 12:57 MB [id number]) Shoulder Strength Shoulder Manual Muscle Testing Left Flexion 5 Normal Abduction (C5) 5 Normal External Rotation 4 Good Internal Rotation 4 Good Right Comments All MMT deferred at this time Elbow/Forearm Strength Elbow and Forearm Manual Muscle Testing Left Flexion (C6) 5 Normal Extension (C7) 5 Normal Pronation 5 Normal Supination 5 Normal Right Comments Deferred at this time PT-OP-Q Treatments Start: 05/27/20 07:20 Freq: Status: Active Protocol: Document 06/21/20 08:16 MB (Rec: 06/21/20 08:56 MB [id number]) Therapeutic Exercises Supine Exercises Pect stretch Side bilateral Comments 20 sec AAROM with cane Supine Exercise Name Flexion, ER and abduction Side right Equipment Used Cane Reps/Minutes 10 reps x2 flexion, 10 reps x1 abd and ER Comments AAROM with use of left hand Standing Exercises Standing forward rocking and reaching Comments Working on pt's right shoulder extension 10 reps, to start at home Gait Training Gait Activity 6MWT Comments Clockwise gait and PT behind patient. Pt gait trains 1351 feet in 6 minutes with better arm swing and occ sneaker scuffing Manual Therapy Treatment Other Other Manual Treatments PROM in hook lying: right shoulder abduction to 85 deg today. PROM right shoulder flexion and abduction PT-OP-T Assessment and Plan Start: 05/27/20 07:20 Freq: Status: Active Protocol: Document 06/21/20 08:16 MB (Rec: 06/21/20 08:56 MB [id number]) Physical Therapy Assessment Rehab Potential Rehabilitation Potential Good Evaluation Complexity Number of Personal Factors/Comorbidities 1-2 Number of Body Systems Impaired 1-2 Clinical Presentation at Evaluation Stable Impairments Impairments Activity Tolerance,Balance, Coordination,Edema,Functional Activities,Integument,Pain, Posture,ROM,Soft Tissue Mobility,Strength Goals 5 Bead Trimmer Goal (LTG) Pt will be able to don and doff bra and shirt without zipper or buttons with I by 07/27/20. LTG Duration 8 weeks 4 Bead Trimmer Goal (LTG) Pt will be able to tie her shoes using both hands by . LTG Duration 8 weeks 3 Bead Trimmer Goal (LTG) Pt will perform progressive HEP with I including postural and alignment, flexibility, ROM and strengthenging exercises to improve right UE function by 07/27/20. LTG Duration 8 weeks 2 Mcfp Goal (LTG) Pt will present with improved right shoulder AROM to at least 120 deg flexion and abduction and PROM ER and IR to 40 deg to improve functional use of her right arm by 07/27/20. LTG Duration 8 weeks 1 Mcfp Goal (LTG) Pt will present with an improved QuickDASH score to no more than 20% to reflect improved functional mobility and use of her right arm by 07/27/20. LTG Duration 8 weeks Assessment Summary Assessment Received clearance to con't on with protocol, phase III, added AAROM abduction today, rock and reach for shoulder extension and PROM right shoulder with PT today. Con't progression. Physical Therapy Plan Frequency and Duration Frequency of Treatment 2x/Week Duration of Treatment 8 weeks Plan of Care Start Date 05/27/20 Plan of Care End Date 07/29/20 Therapeutic Interventions Therapeutic Interventions Balance Training,Canalithic Repositioning,Coordination Training,Gait Training,Home Exercise Program,Joint Mobilizations,Manual Therapy, Neuromuscular Re-education, Patient/Caregiver Education, Self-Care/Home Management, Sensory Integration,Soft Tissue Mobilization,Taping, Therapeutic Activities, Therapeutic Exercises Modalities Cold Pack/Ice Massage,Electric Stimulation,Hot Packs, Ultrasound Next Visit Focus/Plan Next Note Type Treatment Note Next Visit Plan Progress balance exercises, upright bike, lifting things up off the floor, moving cones , washing-type movements on the wall or table, manual work face down
--- NOTE | 2020-06-25 14:03 | PT.OTN ---
Current Diagnoses Other displaced fracture of upper end of right humerus, initial encounter for closed fracture (06/25/20) Physical Therapy Treatment Note PT-OP-A Visit Information Start: 05/27/20 07:20 Freq: Status: Active Protocol: Document 06/25/20 09:01 MB (Rec: 06/25/20 09:44 MB [id number]) Out-Patient Physical Therapy Visit Information Visit Information Visit Type Progress Note Visit Note Medicare AARP Visit Start Time 09:01 Visit Stop Time 09:45 Total Visit Minutes 44 Visit Number 9 Precautions Precautions Pt returned to surgeon. She was told she no longer has to wear the sling. The doctor circled phase III weeks 6-12 on post-op orders: progressive isometric and isotonic strengthening and scapular mobs PT-OP-B Current Condition Start: 05/27/20 07:20 Freq: Status: Active Protocol: Document 05/27/20 09:47 MB (Rec: 05/27/20 10:22 MB [id number]) Current Condition History of Current Condition Onset Date 05/10/20 Current Complaints Right arm discomfort and disuse History of Current Condition Pt reports that on 05/10/20, she had a fall off a short ladder onto her right shoulder . She had heard a noise. She went to the ED and was found to have a humeral fracture. She underwent an ORIF on . Pt has worn the sling since 05/11/20 and was told at her post-op with Dr. Parish on 05/22/20 that she should wear the sling for 4 more weeks and con't pendulums. Pt sees the surgeon again 06/17. She is right handed. She has no numbness or tingling. Pt reports 3/10 right shoulder pain and 2/10 left hip pain. Pt reports a history of osteopenia, arthritis, back pain, high BP. Pt has been sleeping in a recliner chair. She tried sleeping in the bed on her left last night and slept better. Prior Treatments and Tests PT in the past and was told that she had one leg longer than the other and has exercises Treatment Goals Patient/Caregiver Goals To decrease right arm discomfort and improve use PT-OP-C Subjective Start: 05/27/20 07:20 Freq: Status: Active Protocol: Document 06/25/20 09:01 MB (Rec: 06/25/20 09:44 MB [id number]) OP-PT Subjective Patient Comments Patient Comments Pt states that she is doing pretty well. She has some tightness in her right upper traps area. PT-OP-J Posture/Palpation/Skin Start: 05/27/20 07:20 Freq: Status: Active Protocol: Document 05/27/20 09:47 MB (Rec: 05/27/20 12:57 MB [id number]) Posture Evaluation Comments Posture Comments Pt standing: right arm edematous with yellowish ecchymosis around elbow and edema is pitting in forearm area, post-op incision healing anteromedial proximal arm grossly 4, right AC joint 2 in front of tragus, pt with spinal curvature changes with translation to the left upper body and convexity to the right at thoracic spine, right iliac crest is higher than the left, increased valgus left knee with left foot overpronation. PT-OP-K Range of Motion Start: 05/27/20 07:20 Freq: Status: Active Protocol: Document 05/27/20 09:47 MB (Rec: 05/27/20 12:57 MB [id number]) Cervical Spine Range of Motion Cervical Spine Active Testing Position Standing Rotation Left 45 Rotation Right 50 Lateral Flexion Left 25 Lateral Flexion Right 25 Shoulder Goniometric Range of Motion Shoulder Right Shoulder ROM WFL No Testing Position Supine Comments AROM deferred post-op 15-16 days per doctor's order Supine PROM flexion to 45 deg, abduction to 30 deg, pt guarding movement. ER and IR in 30 deg abduction: ER 0 deg and IR 5 deg Left shoulder Shoulder ROM WFL Yes Testing Position Standing Comments Supine PROM with shoulder in 90/90: ER 60 and IR 45 deg PT-OP-M Strength Start: 05/27/20 07:20 Freq: Status: Active Protocol: Document 05/27/20 09:47 MB (Rec: 05/27/20 12:57 MB [id number]) Shoulder Strength Shoulder Manual Muscle Testing Left Flexion 5 Normal Abduction (C5) 5 Normal External Rotation 4 Good Internal Rotation 4 Good Right Comments All MMT deferred at this time Elbow/Forearm Strength Elbow and Forearm Manual Muscle Testing Left Flexion (C6) 5 Normal Extension (C7) 5 Normal Pronation 5 Normal Supination 5 Normal Right Comments Deferred at this time PT-OP-Q Treatments Start: 05/27/20 07:20 Freq: Status: Active Protocol: Document 06/25/20 09:01 MB (Rec: 06/25/20 09:44 MB [id number]) Therapeutic Exercises Supine Exercises Pect stretch Side bilateral Comments 20 sec AAROM with cane Comments Verbally reviewed today Pelvic realignment exercises Comments Verbally reviewed today Sitting Exercises Putty squeeze Comments Verbally reviewed and pt can d /c Standing Exercises Use kids' water ball for thoracic massage Comments Re-ed today Racquet ball STM Standing Exercise Name Taught infraspinatus MWM, upper traps MWM and reviewed intrascapular STM Side bilateral Comments Sitting for upper traps and standing for others Gait Training Gait Activity 6MWT Comments Counter clockwise gait today and pt has improved ebony and B arm swing with gait 1584 feet today PT-OP-T Assessment and Plan Start: 05/27/20 07:20 Freq: Status: Active Protocol: Document 06/25/20 09:01 MB (Rec: 06/25/20 09:44 MB [id number]) Physical Therapy Assessment Rehab Potential Rehabilitation Potential Good Evaluation Complexity Number of Personal Factors/Comorbidities 1-2 Number of Body Systems Impaired 1-2 Clinical Presentation at Evaluation Stable Impairments Impairments Activity Tolerance,Balance, Coordination,Edema,Functional Activities,Integument,Pain, Posture,ROM,Soft Tissue Mobility,Strength Goals 7 Mcc Goal (LTG) Pt will be able to don bra behind back and style hair with right hand to improve functional I with ADLs by . LTG Duration 8 weeks 6 Mcc Goal (LTG) Pt will gait train at least 1650 feet in 6 minutes to decrease fall risk and improve community ambulation by . 06/25/20: Pt gait trains 1584 feet in 6 minutes with improved arm swing in counter clockwise direction, which is much improved LTG Duration 8 weeks 5 Tobacco Checkout Clerk Goal (LTG) Pt will be able to don and doff bra and shirt without zipper or buttons with I by 07/27/20. 06/26/20: Pt can don and doff bra and shirt but has to don bra in the front. LTG Duration Met 4 Tobacco Checkout Clerk Goal (LTG) Pt will be able to tie her shoes using both hands by . 06/25/20: Met LTG Duration Met 3 Tobacco Checkout Clerk Goal (LTG) Pt will perform progressive HEP with I including postural and alignment, flexibility, ROM and strengthenging exercises to improve right UE function by 08/26/20. 06/25/20: Pt is performing cane flexion, abduction, ER, tennis ball intrascapular massage, pelvic realignment exercises. LTG Duration 8 weeks 2 Mcc Goal (LTG) Pt will present with improved right shoulder AROM to at least 160 deg flexion and abduction and PROM ER and IR to 50 deg to improve functional use of her right arm by 08/26/20. 06/25/20: Right shoulder ROM today: standing AROM flexion 112 deg and abduction to 91 deg; passive supine ER to 35 deg and IR to 25 deg LTG Duration 8 weeks 1 Tobacco Checkout Clerk Goal (LTG) Pt will present with an improved QuickDASH score to no more than 20% to reflect improved functional mobility and use of her right arm by 08/26/20. 06/25/20: QuickDASH score reflects 40.90% impairment LTG Duration 8 weeks Assessment Summary Assessment Pt has progressed towards all PT goals since starting therapy. These include ROM, functional use of right arm and performance of HEP. She is now able to go without the sling and is cleared to con't with ROM and strengthening. Her gait is faster and more steady. She will benefit from ongoing PT for ROM, strengthening, manual work and balance training. Physical Therapy Plan Frequency and Duration Frequency of Treatment 2x/Week Duration of Treatment 8 weeks Plan of Care Start Date 06/25/20 Plan of Care End Date 08/26/20 Therapeutic Interventions Therapeutic Interventions Balance Training,Canalithic Repositioning,Coordination Training,Gait Training,Home Exercise Program,Joint Mobilizations,Manual Therapy, Neuromuscular Re-education, Patient/Caregiver Education, Self-Care/Home Management, Sensory Integration,Soft Tissue Mobilization,Taping, Therapeutic Activities, Therapeutic Exercises Modalities Cold Pack/Ice Massage,Electric Stimulation,Hot Packs, Ultrasound Next Visit Focus/Plan Next Note Type Treatment Note Next Visit Plan Progress balance exercises, upright bike, lifting things up off the floor, moving cones , washing-type movements on the wall or table, consider pillow slides and wall walking , manual work face down, arm bicycles with back against wall and/or body blade
--- NOTE | 2020-06-25 14:03 | PT.OPPOC ---
Physical, Occupational & Speech Therapy At [facility] Current Diagnoses Other displaced fracture of upper end of right humerus, initial encounter for closed fracture (06/25/20) Visit Care Team Role Provider Type Yvan Stewart MD Family Provider Physician Primary Care Provider Specialty: Family Practice Address: [address] [place] [address], [facility] [place], [address] Email: [email or web address] Jeninfer Parish MD Attending Provider Physician Referring Provider Specialty: Orthopedics Address: [address] [place] [address], [phone] Email: [email or web address] Plan Of Care PT-OP-T Assessment and Plan Start: 05/27/20 07:20 Freq: Status: Active Protocol: Document 06/25/20 09:01 MB (Rec: 06/25/20 09:44 MB [id number]) Physical Therapy Assessment Rehab Potential Rehabilitation Potential Good Evaluation Complexity Number of Personal Factors/Comorbidities 1-2 Number of Body Systems Impaired 1-2 Clinical Presentation at Evaluation Stable Impairments Impairments Activity Tolerance,Balance, Coordination,Edema,Functional Activities,Integument,Pain, Posture,ROM,Soft Tissue Mobility,Strength Goals 7 Beer Still Runner Compounder Goal (LTG) Pt will be able to don bra behind back and style hair with right hand to improve functional I with ADLs by . LTG Duration 8 weeks 6 Beer Still Runner Compounder Goal (LTG) Pt will gait train at least 1650 feet in 6 minutes to decrease fall risk and improve community ambulation by . 06/25/20: Pt gait trains 1584 feet in 6 minutes with improved arm swing in counter clockwise direction, which is much improved LTG Duration 8 weeks 5 Senior Living Goal (LTG) Pt will be able to don and doff bra and shirt without zipper or buttons with I by 07/27/20. 06/26/20: Pt can don and doff bra and shirt but has to don bra in the front. LTG Duration Met 4 Beer Still Runner Compounder Goal (LTG) Pt will be able to tie her shoes using both hands by . 06/25/20: Met LTG Duration Met 3 Senior Living Goal (LTG) Pt will perform progressive HEP with I including postural and alignment, flexibility, ROM and strengthenging exercises to improve right UE function by 08/26/20. 06/25/20: Pt is performing cane flexion, abduction, ER, tennis ball intrascapular massage, pelvic realignment exercises. LTG Duration 8 weeks 2 Beer Still Runner Compounder Goal (LTG) Pt will present with improved right shoulder AROM to at least 160 deg flexion and abduction and PROM ER and IR to 50 deg to improve functional use of her right arm by 08/26/20. 06/25/20: Right shoulder ROM today: standing AROM flexion 112 deg and abduction to 91 deg; passive supine ER to 35 deg and IR to 25 deg LTG Duration 8 weeks 1 Beer Still Runner Compounder Goal (LTG) Pt will present with an improved QuickDASH score to no more than 20% to reflect improved functional mobility and use of her right arm by 08/26/20. 06/25/20: QuickDASH score reflects 40.90% impairment LTG Duration 8 weeks Assessment Summary Assessment Pt has progressed towards all PT goals since starting therapy. These include ROM, functional use of right arm and performance of HEP. She is now able to go without the sling and is cleared to con't with ROM and strengthening. Her gait is faster and more steady. She will benefit from ongoing PT for ROM, strengthening, manual work and balance training. Physical Therapy Plan Frequency and Duration Frequency of Treatment 2x/Week Duration of Treatment 8 weeks Plan of Care Start Date 06/25/20 Plan of Care End Date 08/26/20 Therapeutic Interventions Therapeutic Interventions Balance Training,Canalithic Repositioning,Coordination Training,Gait Training,Home Exercise Program,Joint Mobilizations,Manual Therapy, Neuromuscular Re-education, Patient/Caregiver Education, Self-Care/Home Management, Sensory Integration,Soft Tissue Mobilization,Taping, Therapeutic Activities, Therapeutic Exercises Modalities Cold Pack/Ice Massage,Electric Stimulation,Hot Packs, Ultrasound Next Visit Focus/Plan Next Note Type Treatment Note Next Visit Plan Progress balance exercises, upright bike, lifting things up off the floor, moving cones , washing-type movements on the wall or table, consider pillow slides and wall walking , manual work face down, arm bicycles with back against wall and/or body blade Plan of Care Dates Plan of Care Start Date 06/25/20 Plan of Care End Date 08/26/20 Electronically Signed by: Darcie Wagner, PT 06/25/20 [id number] Please Sign and Return: I have reviewed this Plan of Care and certify that the skilled therapy services above are required to meet the patient?s needs. Physician Signature Date Printed Name and Credentials Clinical Instructor Signature Printed Name and Credentials
--- NOTE | 2020-06-28 13:01 | PT.OTN ---
Current Diagnoses Other displaced fracture of upper end of right humerus, initial encounter for closed fracture (06/28/20) Physical Therapy Treatment Note PT-OP-A Visit Information Start: 05/27/20 07:20 Freq: Status: Active Protocol: Document 06/28/20 12:16 MB (Rec: 06/28/20 12:54 MB [id number]) Out-Patient Physical Therapy Visit Information Visit Information Visit Type Treatment Note Visit Note Medicare AARP Visit Start Time 12:16 Visit Stop Time 13:00 Total Visit Minutes 44 Visit Number 10 Precautions Precautions Pt returned to surgeon. She was told she no longer has to wear the sling. The doctor circled phase III weeks 6-12 on post-op orders: progressive isometric and isotonic strengthening and scapular mobs PT-OP-B Current Condition Start: 05/27/20 07:20 Freq: Status: Active Protocol: Document 05/27/20 09:47 MB (Rec: 05/27/20 10:22 MB [id number]) Current Condition History of Current Condition Onset Date 05/10/20 Current Complaints Right arm discomfort and disuse History of Current Condition Pt reports that on 05/10/20, she had a fall off a short ladder onto her right shoulder . She had heard a noise. She went to the ED and was found to have a humeral fracture. She underwent an ORIF on . Pt has worn the sling since 05/11/20 and was told at her post-op with Dr. Parish on 05/22/20 that she should wear the sling for 4 more weeks and con't pendulums. Pt sees the surgeon again 06/17. She is right handed. She has no numbness or tingling. Pt reports 3/10 right shoulder pain and 2/10 left hip pain. Pt reports a history of osteopenia, arthritis, back pain, high BP. Pt has been sleeping in a recliner chair. She tried sleeping in the bed on her left last night and slept better. Prior Treatments and Tests PT in the past and was told that she had one leg longer than the other and has exercises Treatment Goals Patient/Caregiver Goals To decrease right arm discomfort and improve use PT-OP-C Subjective Start: 05/27/20 07:20 Freq: Status: Active Protocol: Document 06/28/20 12:16 MB (Rec: 06/28/20 12:54 MB [id number]) OP-PT Subjective Patient Comments Patient Comments Pt states that she is doing fine. PT-OP-J Posture/Palpation/Skin Start: 05/27/20 07:20 Freq: Status: Active Protocol: Document 05/27/20 09:47 MB (Rec: 05/27/20 12:57 MB [id number]) Posture Evaluation Comments Posture Comments Pt standing: right arm edematous with yellowish ecchymosis around elbow and edema is pitting in forearm area, post-op incision healing anteromedial proximal arm grossly 4, right AC joint 2 in front of tragus, pt with spinal curvature changes with translation to the left upper body and convexity to the right at thoracic spine, right iliac crest is higher than the left, increased valgus left knee with left foot overpronation. PT-OP-K Range of Motion Start: 05/27/20 07:20 Freq: Status: Active Protocol: Document 05/27/20 09:47 MB (Rec: 05/27/20 12:57 MB [id number]) Cervical Spine Range of Motion Cervical Spine Active Testing Position Standing Rotation Left 45 Rotation Right 50 Lateral Flexion Left 25 Lateral Flexion Right 25 Shoulder Goniometric Range of Motion Shoulder Right Shoulder ROM WFL No Testing Position Supine Comments AROM deferred post-op 15-16 days per doctor's order Supine PROM flexion to 45 deg, abduction to 30 deg, pt guarding movement. ER and IR in 30 deg abduction: ER 0 deg and IR 5 deg Left shoulder Shoulder ROM WFL Yes Testing Position Standing Comments Supine PROM with shoulder in 90/90: ER 60 and IR 45 deg PT-OP-M Strength Start: 05/27/20 07:20 Freq: Status: Active Protocol: Document 05/27/20 09:47 MB (Rec: 05/27/20 12:57 MB [id number]) Shoulder Strength Shoulder Manual Muscle Testing Left Flexion 5 Normal Abduction (C5) 5 Normal External Rotation 4 Good Internal Rotation 4 Good Right Comments All MMT deferred at this time Elbow/Forearm Strength Elbow and Forearm Manual Muscle Testing Left Flexion (C6) 5 Normal Extension (C7) 5 Normal Pronation 5 Normal Supination 5 Normal Right Comments Deferred at this time PT-OP-Q Treatments Start: 05/27/20 07:20 Freq: Status: Active Protocol: Document 06/28/20 12:16 MB (Rec: 06/28/20 12:54 MB [id number]) Cardio Equipment Upper Body Ergometer (UBE) Duration (Minutes) 10 Other 1' forward and 1' backwards Therapeutic Exercises Standing Exercises Scapular retraction with ball against wall at thorax Side bilateral Comments 5 reps slowly today Forward and abduction wall crawls Side bilateral Comments Several reps both directions Bicycles with ball behind back Side bilateral Comments Forward and backwards mini reps until fatigued Gait Training Gait Activity 6MWT Comments Much improved ebony today with 6MWT and better B arm swing and no evidence of imbalance. The reading stick does not con't to read after 1241 feet and so distance not measured accurately. Pt states that her confidence is better with walking Manual Therapy Treatment Other Other Manual Treatments Pt prone: grade II-III PA thoracic and scapular mobs PT-OP-T Assessment and Plan Start: 05/27/20 07:20 Freq: Status: Active Protocol: Document 06/28/20 12:16 MB (Rec: 06/28/20 12:54 MB [id number]) Physical Therapy Assessment Rehab Potential Rehabilitation Potential Good Evaluation Complexity Number of Personal Factors/Comorbidities 1-2 Number of Body Systems Impaired 1-2 Clinical Presentation at Evaluation Stable Impairments Impairments Activity Tolerance,Balance, Coordination,Edema,Functional Activities,Integument,Pain, Posture,ROM,Soft Tissue Mobility,Strength Goals 7 Relationship Banker Goal (LTG) Pt will be able to don bra behind back and style hair with right hand to improve functional I with ADLs by . LTG Duration 8 weeks 6 Nursing Home Goal (LTG) Pt will gait train at least 1650 feet in 6 minutes to decrease fall risk and improve community ambulation by . 06/25/20: Pt gait trains 1584 feet in 6 minutes with improved arm swing in counter clockwise direction, which is much improved LTG Duration 8 weeks 3 Relationship Banker Goal (LTG) Pt will perform progressive HEP with I including postural and alignment, flexibility, ROM and strengthenging exercises to improve right UE function by 08/26/20. 06/25/20: Pt is performing cane flexion, abduction, ER, tennis ball intrascapular massage, pelvic realignment exercises. LTG Duration 8 weeks 2 Nursing Home Goal (LTG) Pt will present with improved right shoulder AROM to at least 160 deg flexion and abduction and PROM ER and IR to 50 deg to improve functional use of her right arm by 08/26/20. 06/25/20: Right shoulder ROM today: standing AROM flexion 112 deg and abduction to 91 deg; passive supine ER to 35 deg and IR to 25 deg LTG Duration 8 weeks 1 Nursing Home Goal (LTG) Pt will present with an improved QuickDASH score to no more than 20% to reflect improved functional mobility and use of her right arm by 08/26/20. 06/25/20: QuickDASH score reflects 40.90% impairment LTG Duration 8 weeks Assessment Summary Assessment Pt's gait is better and with more B arm swing. She is able to progress to UBE and does well today. Progressed active exercises against the wall. Physical Therapy Plan Frequency and Duration Frequency of Treatment 2x/Week Duration of Treatment 8 weeks Plan of Care Start Date 06/25/20 Plan of Care End Date 08/26/20 Therapeutic Interventions Therapeutic Interventions Balance Training,Canalithic Repositioning,Coordination Training,Gait Training,Home Exercise Program,Joint Mobilizations,Manual Therapy, Neuromuscular Re-education, Patient/Caregiver Education, Self-Care/Home Management, Sensory Integration,Soft Tissue Mobilization,Taping, Therapeutic Activities, Therapeutic Exercises Modalities Cold Pack/Ice Massage,Electric Stimulation,Hot Packs, Ultrasound Next Visit Focus/Plan Next Note Type Treatment Note Next Visit Plan Progress balance exercises, body blade, con't UBE, shoulder ER in hook lying
--- NOTE | 2020-07-05 13:00 | PT.OTN ---
Current Diagnoses Other displaced fracture of upper end of right humerus, initial encounter for closed fracture (07/05/20) Physical Therapy Treatment Note PT-OP-A Visit Information Start: 05/27/20 07:20 Freq: Status: Active Protocol: Document 07/05/20 12:15 MB (Rec: 07/05/20 12:59 MB [id number]) Out-Patient Physical Therapy Visit Information Visit Information Visit Type Treatment Note Visit Note Medicare AARP Visit Start Time 12:15 Visit Stop Time 12:55 Total Visit Minutes 40 Visit Number 11 PT-OP-B Current Condition Start: 05/27/20 07:20 Freq: Status: Active Protocol: Document 05/27/20 09:47 MB (Rec: 05/27/20 10:22 MB [id number]) Current Condition History of Current Condition Onset Date 05/10/20 Current Complaints Right arm discomfort and disuse History of Current Condition Pt reports that on 05/10/20, she had a fall off a short ladder onto her right shoulder . She had heard a noise. She went to the ED and was found to have a humeral fracture. She underwent an ORIF on . Pt has worn the sling since 05/11/20 and was told at her post-op with Dr. Parish on 05/22/20 that she should wear the sling for 4 more weeks and con't pendulums. Pt sees the surgeon again 06/17. She is right handed. She has no numbness or tingling. Pt reports 3/10 right shoulder pain and 2/10 left hip pain. Pt reports a history of osteopenia, arthritis, back pain, high BP. Pt has been sleeping in a recliner chair. She tried sleeping in the bed on her left last night and slept better. Prior Treatments and Tests PT in the past and was told that she had one leg longer than the other and has exercises Treatment Goals Patient/Caregiver Goals To decrease right arm discomfort and improve use PT-OP-C Subjective Start: 05/27/20 07:20 Freq: Status: Active Protocol: Document 07/05/20 12:15 MB (Rec: 07/05/20 12:59 MB [id number]) OP-PT Subjective Patient Comments Patient Comments Pt states that she has been doing the wall crawls and bicycling of arms in standing. Gardening is going well. She is trying not to lean on her right arm. PT-OP-J Posture/Palpation/Skin Start: 05/27/20 07:20 Freq: Status: Active Protocol: Document 05/27/20 09:47 MB (Rec: 05/27/20 12:57 MB [id number]) Posture Evaluation Comments Posture Comments Pt standing: right arm edematous with yellowish ecchymosis around elbow and edema is pitting in forearm area, post-op incision healing anteromedial proximal arm grossly 4, right AC joint 2 in front of tragus, pt with spinal curvature changes with translation to the left upper body and convexity to the right at thoracic spine, right iliac crest is higher than the left, increased valgus left knee with left foot overpronation. PT-OP-K Range of Motion Start: 05/27/20 07:20 Freq: Status: Active Protocol: Document 05/27/20 09:47 MB (Rec: 05/27/20 12:57 MB [id number]) Cervical Spine Range of Motion Cervical Spine Active Testing Position Standing Rotation Left 45 Rotation Right 50 Lateral Flexion Left 25 Lateral Flexion Right 25 Shoulder Goniometric Range of Motion Shoulder Right Shoulder ROM WFL No Testing Position Supine Comments AROM deferred post-op 15-16 days per doctor's order Supine PROM flexion to 45 deg, abduction to 30 deg, pt guarding movement. ER and IR in 30 deg abduction: ER 0 deg and IR 5 deg Left shoulder Shoulder ROM WFL Yes Testing Position Standing Comments Supine PROM with shoulder in 90/90: ER 60 and IR 45 deg PT-OP-M Strength Start: 05/27/20 07:20 Freq: Status: Active Protocol: Document 05/27/20 09:47 MB (Rec: 05/27/20 12:57 MB [id number]) Shoulder Strength Shoulder Manual Muscle Testing Left Flexion 5 Normal Abduction (C5) 5 Normal External Rotation 4 Good Internal Rotation 4 Good Right Comments All MMT deferred at this time Elbow/Forearm Strength Elbow and Forearm Manual Muscle Testing Left Flexion (C6) 5 Normal Extension (C7) 5 Normal Pronation 5 Normal Supination 5 Normal Right Comments Deferred at this time PT-OP-Q Treatments Start: 05/27/20 07:20 Freq: Status: Active Protocol: Document 07/05/20 12:15 MB (Rec: 07/05/20 12:59 MB [id number]) Cardio Equipment Upper Body Ergometer (UBE) Duration (Minutes) 10 Other 1' forward and 1' backwards Therapeutic Exercises Supine Exercises Shoulder ER with band Equipment Used Red pool noodle and level 1 band Comments 10 reps and cues for form Pect stretch Supine Exercise Name Over red pool noodle today Side bilateral Comments 20 sec AAROM with cane Supine Exercise Name Flexion, abduction, ER Equipment Used Red pool noodle today Comments AAROM for right shoulder with left hand support, 10 reps Standing Exercises Back blacksmith helper over right levator scapula Side right Comments Pt likes back blacksmith helper over theracane, MWM with active cervical SB Manual Therapy Treatment Other Other Manual Treatments Pt prone: grade II-III PA thoracic and B scapular mobs, STM B thoracic and cervical paraspinals, right upper traps and levator and pt with very tight levator scap on the right PT-OP-T Assessment and Plan Start: 05/27/20 07:20 Freq: Status: Active Protocol: Document 07/05/20 12:15 MB (Rec: 07/05/20 12:59 MB [id number]) Physical Therapy Assessment Rehab Potential Rehabilitation Potential Good Evaluation Complexity Number of Personal Factors/Comorbidities 1-2 Number of Body Systems Impaired 1-2 Clinical Presentation at Evaluation Stable Impairments Impairments Activity Tolerance,Balance, Coordination,Edema,Functional Activities,Integument,Pain, Posture,ROM,Soft Tissue Mobility,Strength Goals 7 Skilled Nursing Goal (LTG) Pt will be able to don bra behind back and style hair with right hand to improve functional I with ADLs by . LTG Duration 8 weeks 6 Skilled Nursing Goal (LTG) Pt will gait train at least 1650 feet in 6 minutes to decrease fall risk and improve community ambulation by . 06/25/20: Pt gait trains 1584 feet in 6 minutes with improved arm swing in counter clockwise direction, which is much improved LTG Duration 8 weeks 3 Associate Store Director Goal (LTG) Pt will perform progressive HEP with I including postural and alignment, flexibility, ROM and strengthenging exercises to improve right UE function by 08/26/20. 06/25/20: Pt is performing cane flexion, abduction, ER, tennis ball intrascapular massage, pelvic realignment exercises. LTG Duration 8 weeks 2 Skilled Nursing Goal (LTG) Pt will present with improved right shoulder AROM to at least 160 deg flexion and abduction and PROM ER and IR to 50 deg to improve functional use of her right arm by 08/26/20. 06/25/20: Right shoulder ROM today: standing AROM flexion 112 deg and abduction to 91 deg; passive supine ER to 35 deg and IR to 25 deg LTG Duration 8 weeks 1 Skilled Nursing Goal (LTG) Pt will present with an improved QuickDASH score to no more than 20% to reflect improved functional mobility and use of her right arm by 08/26/20. 06/25/20: QuickDASH score reflects 40.90% impairment LTG Duration 8 weeks Assessment Summary Assessment Postural changes affect B shoulder ER over pool noodle today when starting band exercises. Pt con't to do well with therapy. Neither of her scapula move well in prone. Physical Therapy Plan Frequency and Duration Frequency of Treatment 2x/Week Duration of Treatment 8 weeks Plan of Care Start Date 06/25/20 Plan of Care End Date 08/26/20 Therapeutic Interventions Therapeutic Interventions Balance Training,Canalithic Repositioning,Coordination Training,Gait Training,Home Exercise Program,Joint Mobilizations,Manual Therapy, Neuromuscular Re-education, Patient/Caregiver Education, Self-Care/Home Management, Sensory Integration,Soft Tissue Mobilization,Taping, Therapeutic Activities, Therapeutic Exercises Modalities Cold Pack/Ice Massage,Electric Stimulation,Hot Packs, Ultrasound Next Visit Focus/Plan Next Note Type Treatment Note Next Visit Plan Progress balance exercises, body blade, con't UBE, band strengthening over pool noodle
--- NOTE | 2020-07-09 10:30 | PT.OTN ---
Current Diagnoses Other displaced fracture of upper end of right humerus, initial encounter for closed fracture (07/09/20) Physical Therapy Treatment Note PT-OP-A Visit Information Start: 05/27/20 07:20 Freq: Status: Active Protocol: Document 07/09/20 09:48 MB (Rec: 07/09/20 10:29 MB [id number]) Out-Patient Physical Therapy Visit Information Visit Information Visit Type Treatment Note Visit Note Medicare AARP Visit Start Time 09:48 Visit Stop Time 10:28 Total Visit Minutes 40 Visit Number 12 PT-OP-B Current Condition Start: 05/27/20 07:20 Freq: Status: Active Protocol: Document 05/27/20 09:47 MB (Rec: 05/27/20 10:22 MB [id number]) Current Condition History of Current Condition Onset Date 05/10/20 Current Complaints Right arm discomfort and disuse History of Current Condition Pt reports that on 05/10/20, she had a fall off a short ladder onto her right shoulder . She had heard a noise. She went to the ED and was found to have a humeral fracture. She underwent an ORIF on . Pt has worn the sling since 05/11/20 and was told at her post-op with Dr. Pairsh on 05/22/20 that she should wear the sling for 4 more weeks and con't pendulums. Pt sees the surgeon again 06/17. She is right handed. She has no numbness or tingling. Pt reports 3/10 right shoulder pain and 2/10 left hip pain. Pt reports a history of osteopenia, arthritis, back pain, high BP. Pt has been sleeping in a recliner chair. She tried sleeping in the bed on her left last night and slept better. Prior Treatments and Tests PT in the past and was told that she had one leg longer than the other and has exercises Treatment Goals Patient/Caregiver Goals To decrease right arm discomfort and improve use PT-OP-C Subjective Start: 05/27/20 07:20 Freq: Status: Active Protocol: Document 07/09/20 09:48 MB (Rec: 07/09/20 10:29 MB [id number]) OP-PT Subjective Patient Comments Patient Comments Pt states that she is doing well. She is going to get the pool noodle soon. PT-OP-J Posture/Palpation/Skin Start: 05/27/20 07:20 Freq: Status: Active Protocol: Document 05/27/20 09:47 MB (Rec: 05/27/20 12:57 MB [id number]) Posture Evaluation Comments Posture Comments Pt standing: right arm edematous with yellowish ecchymosis around elbow and edema is pitting in forearm area, post-op incision healing anteromedial proximal arm grossly 4, right AC joint 2 in front of tragus, pt with spinal curvature changes with translation to the left upper body and convexity to the right at thoracic spine, right iliac crest is higher than the left, increased valgus left knee with left foot overpronation. PT-OP-K Range of Motion Start: 05/27/20 07:20 Freq: Status: Active Protocol: Document 05/27/20 09:47 MB (Rec: 05/27/20 12:57 MB [id number]) Cervical Spine Range of Motion Cervical Spine Active Testing Position Standing Rotation Left 45 Rotation Right 50 Lateral Flexion Left 25 Lateral Flexion Right 25 Shoulder Goniometric Range of Motion Shoulder Right Shoulder ROM WFL No Testing Position Supine Comments AROM deferred post-op 15-16 days per doctor's order Supine PROM flexion to 45 deg, abduction to 30 deg, pt guarding movement. ER and IR in 30 deg abduction: ER 0 deg and IR 5 deg Left shoulder Shoulder ROM WFL Yes Testing Position Standing Comments Supine PROM with shoulder in 90/90: ER 60 and IR 45 deg PT-OP-M Strength Start: 05/27/20 07:20 Freq: Status: Active Protocol: Document 05/27/20 09:47 MB (Rec: 05/27/20 12:57 MB [id number]) Shoulder Strength Shoulder Manual Muscle Testing Left Flexion 5 Normal Abduction (C5) 5 Normal External Rotation 4 Good Internal Rotation 4 Good Right Comments All MMT deferred at this time Elbow/Forearm Strength Elbow and Forearm Manual Muscle Testing Left Flexion (C6) 5 Normal Extension (C7) 5 Normal Pronation 5 Normal Supination 5 Normal Right Comments Deferred at this time PT-OP-Q Treatments Start: 05/27/20 07:20 Freq: Status: Active Protocol: Document 07/09/20 09:48 MB (Rec: 07/09/20 10:29 MB [id number]) Cardio Equipment Upper Body Ergometer (UBE) Duration (Minutes) 10 Other 1' forward and 1' backwards Therapeutic Exercises Supine Exercises Chicken wing shoulder ER on pool noodle Side bilateral Comments 10 reps, teal pool noodle today Open book wth lower rib breathing Side bilateral Comments Slowly, started on right side then switched Standing Exercises Body Blade Standing Exercise Name Classic and yellow blade Side bilateral Comments Shoulder adduction, abduction, flexion, elbow flex/ext PT-OP-T Assessment and Plan Start: 05/27/20 07:20 Freq: Status: Active Protocol: Document 07/09/20 09:48 MB (Rec: 07/09/20 10:29 MB [id number]) Physical Therapy Assessment Rehab Potential Rehabilitation Potential Good Evaluation Complexity Number of Personal Factors/Comorbidities 1-2 Number of Body Systems Impaired 1-2 Clinical Presentation at Evaluation Stable Impairments Impairments Activity Tolerance,Balance, Coordination,Edema,Functional Activities,Integument,Pain, Posture,ROM,Soft Tissue Mobility,Strength Goals 7 Parachute Line Tier Goal (LTG) Pt will be able to don bra behind back and style hair with right hand to improve functional I with ADLs by . LTG Duration 8 weeks 6 Detention Goal (LTG) Pt will gait train at least 1650 feet in 6 minutes to decrease fall risk and improve community ambulation by . 06/25/20: Pt gait trains 1584 feet in 6 minutes with improved arm swing in counter clockwise direction, which is much improved LTG Duration 8 weeks 3 Parachute Line Tier Goal (LTG) Pt will perform progressive HEP with I including postural and alignment, flexibility, ROM and strengthenging exercises to improve right UE function by 08/26/20. 06/25/20: Pt is performing cane flexion, abduction, ER, tennis ball intrascapular massage, pelvic realignment exercises. LTG Duration 8 weeks 2 Parachute Line Tier Goal (LTG) Pt will present with improved right shoulder AROM to at least 160 deg flexion and abduction and PROM ER and IR to 50 deg to improve functional use of her right arm by 08/26/20. 06/25/20: Right shoulder ROM today: standing AROM flexion 112 deg and abduction to 91 deg; passive supine ER to 35 deg and IR to 25 deg LTG Duration 8 weeks 1 Detention Goal (LTG) Pt will present with an improved QuickDASH score to no more than 20% to reflect improved functional mobility and use of her right arm by 08/26/20. 06/25/20: QuickDASH score reflects 40.90% impairment LTG Duration 8 weeks Assessment Summary Assessment Pt with right thoracic convexity and so initiated open book with rib breathing today and pt responds well. Body blade started today and it is very challenging for patient and she cannot decide which one she likes yet. Will con't to practice. Physical Therapy Plan Frequency and Duration Frequency of Treatment 2x/Week Duration of Treatment 8 weeks Plan of Care Start Date 06/25/20 Plan of Care End Date 08/26/20 Therapeutic Interventions Therapeutic Interventions Balance Training,Canalithic Repositioning,Coordination Training,Gait Training,Home Exercise Program,Joint Mobilizations,Manual Therapy, Neuromuscular Re-education, Patient/Caregiver Education, Self-Care/Home Management, Sensory Integration,Soft Tissue Mobilization,Taping, Therapeutic Activities, Therapeutic Exercises Modalities Cold Pack/Ice Massage,Electric Stimulation,Hot Packs, Ultrasound Next Visit Focus/Plan Next Note Type Treatment Note Next Visit Plan Similar: balance exercises, body blade, con't UBE, band strengthening over pool noodle
--- NOTE | 2020-07-16 10:26 | PT.OTN ---
Current Diagnoses Other displaced fracture of upper end of right humerus, initial encounter for closed fracture (07/16/20) Physical Therapy Treatment Note PT-OP-A Visit Information Start: 05/27/20 07:20 Freq: Status: Active Protocol: Document 07/16/20 09:46 MB (Rec: 07/16/20 10:26 MB [id number]) Out-Patient Physical Therapy Visit Information Visit Information Visit Type Treatment Note Visit Note Medicare AARP Visit Start Time 09:46 Visit Stop Time 10:26 Total Visit Minutes 40 Visit Number 13 PT-OP-B Current Condition Start: 05/27/20 07:20 Freq: Status: Active Protocol: Document 05/27/20 09:47 MB (Rec: 05/27/20 10:22 MB [id number]) Current Condition History of Current Condition Onset Date 05/10/20 Current Complaints Right arm discomfort and disuse History of Current Condition Pt reports that on 05/10/20, she had a fall off a short ladder onto her right shoulder . She had heard a noise. She went to the ED and was found to have a humeral fracture. She underwent an ORIF on . Pt has worn the sling since 05/11/20 and was told at her post-op with Dr. Parish on 05/22/20 that she should wear the sling for 4 more weeks and con't pendulums. Pt sees the surgeon again 06/17. She is right handed. She has no numbness or tingling. Pt reports 3/10 right shoulder pain and 2/10 left hip pain. Pt reports a history of osteopenia, arthritis, back pain, high BP. Pt has been sleeping in a recliner chair. She tried sleeping in the bed on her left last night and slept better. Prior Treatments and Tests PT in the past and was told that she had one leg longer than the other and has exercises Treatment Goals Patient/Caregiver Goals To decrease right arm discomfort and improve use PT-OP-C Subjective Start: 05/27/20 07:20 Freq: Status: Active Protocol: Document 07/16/20 09:46 MB (Rec: 07/16/20 10:26 MB [id number]) OP-PT Subjective Patient Comments Patient Comments Pt reports that her right shoulder is a little more tender with continuing the exercises, especially the chicken wing one. Pt did ride in the [place] boat with her . She is reluctant to tell PT if she helped or not. PT-OP-J Posture/Palpation/Skin Start: 05/27/20 07:20 Freq: Status: Active Protocol: Document 05/27/20 09:47 MB (Rec: 05/27/20 12:57 MB [id number]) Posture Evaluation Comments Posture Comments Pt standing: right arm edematous with yellowish ecchymosis around elbow and edema is pitting in forearm area, post-op incision healing anteromedial proximal arm grossly 4, right AC joint 2 in front of tragus, pt with spinal curvature changes with translation to the left upper body and convexity to the right at thoracic spine, right iliac crest is higher than the left, increased valgus left knee with left foot overpronation. PT-OP-K Range of Motion Start: 05/27/20 07:20 Freq: Status: Active Protocol: Document 05/27/20 09:47 MB (Rec: 05/27/20 12:57 MB [id number]) Cervical Spine Range of Motion Cervical Spine Active Testing Position Standing Rotation Left 45 Rotation Right 50 Lateral Flexion Left 25 Lateral Flexion Right 25 Shoulder Goniometric Range of Motion Shoulder Right Shoulder ROM WFL No Testing Position Supine Comments AROM deferred post-op 15-16 days per doctor's order Supine PROM flexion to 45 deg, abduction to 30 deg, pt guarding movement. ER and IR in 30 deg abduction: ER 0 deg and IR 5 deg Left shoulder Shoulder ROM WFL Yes Testing Position Standing Comments Supine PROM with shoulder in 90/90: ER 60 and IR 45 deg PT-OP-M Strength Start: 05/27/20 07:20 Freq: Status: Active Protocol: Document 05/27/20 09:47 MB (Rec: 05/27/20 12:57 MB [id number]) Shoulder Strength Shoulder Manual Muscle Testing Left Flexion 5 Normal Abduction (C5) 5 Normal External Rotation 4 Good Internal Rotation 4 Good Right Comments All MMT deferred at this time Elbow/Forearm Strength Elbow and Forearm Manual Muscle Testing Left Flexion (C6) 5 Normal Extension (C7) 5 Normal Pronation 5 Normal Supination 5 Normal Right Comments Deferred at this time PT-OP-Q Treatments Start: 05/27/20 07:20 Freq: Status: Active Protocol: Document 07/16/20 09:46 MB (Rec: 07/16/20 10:26 MB [id number]) Cardio Equipment Upper Body Ergometer (UBE) Duration (Minutes) 10 Other Alternating forward and backwards every min Manual Therapy Treatment Other Other Manual Treatments Pt prone: grade II-III PA thoracic and B scapular mobs, STM B thoracic and cervical paraspinals, MWM right latissimus dorsi and lateral border subscapularis with PT providing manual TrP pressure and pt performing active shoulder movement, increased tension left upper traps and levator today. Pt supine: positional release and STM right pect PT-OP-T Assessment and Plan Start: 05/27/20 07:20 Freq: Status: Active Protocol: Document 07/16/20 09:46 MB (Rec: 07/16/20 10:26 MB [id number]) Physical Therapy Assessment Rehab Potential Rehabilitation Potential Good Evaluation Complexity Number of Personal Factors/Comorbidities 1-2 Number of Body Systems Impaired 1-2 Clinical Presentation at Evaluation Stable Impairments Impairments Activity Tolerance,Balance, Coordination,Edema,Functional Activities,Integument,Pain, Posture,ROM,Soft Tissue Mobility,Strength Goals 7 Merchandise For Resale Purchasing Agent Goal (LTG) Pt will be able to don bra behind back and style hair with right hand to improve functional I with ADLs by . LTG Duration 8 weeks 6 Nursing Home Goal (LTG) Pt will gait train at least 1650 feet in 6 minutes to decrease fall risk and improve community ambulation by . 06/25/20: Pt gait trains 1584 feet in 6 minutes with improved arm swing in counter clockwise direction, which is much improved LTG Duration 8 weeks 3 Nursing Home Goal (LTG) Pt will perform progressive HEP with I including postural and alignment, flexibility, ROM and strengthenging exercises to improve right UE function by 08/26/20. 06/25/20: Pt is performing cane flexion, abduction, ER, tennis ball intrascapular massage, pelvic realignment exercises. LTG Duration 8 weeks 2 Nursing Home Goal (LTG) Pt will present with improved right shoulder AROM to at least 160 deg flexion and abduction and PROM ER and IR to 50 deg to improve functional use of her right arm by 08/26/20. 06/25/20: Right shoulder ROM today: standing AROM flexion 112 deg and abduction to 91 deg; passive supine ER to 35 deg and IR to 25 deg LTG Duration 8 weeks 1 Nursing Home Goal (LTG) Pt will present with an improved QuickDASH score to no more than 20% to reflect improved functional mobility and use of her right arm by 08/26/20. 06/25/20: QuickDASH score reflects 40.90% impairment LTG Duration 8 weeks Assessment Summary Assessment PT ed pt that a slip on the boat or reaching to grab the net if it is slipping away could cause problems for her right shoulder. Also ed pt in positional release right pect using left hand and pt performs with cues. Her myofascial and periosteal changes in thorax and right humerus affect her right shoulder ROM. Physical Therapy Plan Frequency and Duration Frequency of Treatment 2x/Week Duration of Treatment 8 weeks Plan of Care Start Date 06/25/20 Plan of Care End Date 08/26/20 Therapeutic Interventions Therapeutic Interventions Balance Training,Canalithic Repositioning,Coordination Training,Gait Training,Home Exercise Program,Joint Mobilizations,Manual Therapy, Neuromuscular Re-education, Patient/Caregiver Education, Self-Care/Home Management, Sensory Integration,Soft Tissue Mobilization,Taping, Therapeutic Activities, Therapeutic Exercises Modalities Cold Pack/Ice Massage,Electric Stimulation,Hot Packs, Ultrasound Next Visit Focus/Plan Next Note Type Treatment Note Next Visit Plan Similar: balance exercises, body blade, con't UBE, band strengthening over pool noodle
--- NOTE | 2020-07-19 12:55 | PT.OTN ---
Current Diagnoses Other displaced fracture of upper end of right humerus, initial encounter for closed fracture (07/19/20) Physical Therapy Treatment Note PT-OP-A Visit Information Start: 05/27/20 07:20 Freq: Status: Active Protocol: Document 07/19/20 12:15 MB (Rec: 07/19/20 12:54 MB [id number]) Out-Patient Physical Therapy Visit Information Visit Information Visit Type Treatment Note Visit Note Medicare AARP Visit Start Time 12:15 Visit Stop Time 12:55 Total Visit Minutes 40 Visit Number 14 PT-OP-B Current Condition Start: 05/27/20 07:20 Freq: Status: Active Protocol: Document 05/27/20 09:47 MB (Rec: 05/27/20 10:22 MB [id number]) Current Condition History of Current Condition Onset Date 05/10/20 Current Complaints Right arm discomfort and disuse History of Current Condition Pt reports that on 05/10/20, she had a fall off a short ladder onto her right shoulder . She had heard a noise. She went to the ED and was found to have a humeral fracture. She underwent an ORIF on . Pt has worn the sling since 05/11/20 and was told at her post-op with Dr. Parish on 05/22/20 that she should wear the sling for 4 more weeks and con't pendulums. Pt sees the surgeon again 06/17. She is right handed. She has no numbness or tingling. Pt reports 3/10 right shoulder pain and 2/10 left hip pain. Pt reports a history of osteopenia, arthritis, back pain, high BP. Pt has been sleeping in a recliner chair. She tried sleeping in the bed on her left last night and slept better. Prior Treatments and Tests PT in the past and was told that she had one leg longer than the other and has exercises Treatment Goals Patient/Caregiver Goals To decrease right arm discomfort and improve use PT-OP-C Subjective Start: 05/27/20 07:20 Freq: Status: Active Protocol: Document 07/19/20 12:15 MB (Rec: 07/19/20 12:54 MB [id number]) OP-PT Subjective Patient Comments Patient Comments Pt states that she can lift her right hand for short periods of time to use her curling iron. She can loop her belt. She has to put on her bra from the front. PT-OP-J Posture/Palpation/Skin Start: 05/27/20 07:20 Freq: Status: Active Protocol: Document 05/27/20 09:47 MB (Rec: 05/27/20 12:57 MB [id number]) Posture Evaluation Comments Posture Comments Pt standing: right arm edematous with yellowish ecchymosis around elbow and edema is pitting in forearm area, post-op incision healing anteromedial proximal arm grossly 4, right AC joint 2 in front of tragus, pt with spinal curvature changes with translation to the left upper body and convexity to the right at thoracic spine, right iliac crest is higher than the left, increased valgus left knee with left foot overpronation. PT-OP-K Range of Motion Start: 05/27/20 07:20 Freq: Status: Active Protocol: Document 05/27/20 09:47 MB (Rec: 05/27/20 12:57 MB [id number]) Cervical Spine Range of Motion Cervical Spine Active Testing Position Standing Rotation Left 45 Rotation Right 50 Lateral Flexion Left 25 Lateral Flexion Right 25 Shoulder Goniometric Range of Motion Shoulder Right Shoulder ROM WFL No Testing Position Supine Comments AROM deferred post-op 15-16 days per doctor's order Supine PROM flexion to 45 deg, abduction to 30 deg, pt guarding movement. ER and IR in 30 deg abduction: ER 0 deg and IR 5 deg Left shoulder Shoulder ROM WFL Yes Testing Position Standing Comments Supine PROM with shoulder in 90/90: ER 60 and IR 45 deg PT-OP-M Strength Start: 05/27/20 07:20 Freq: Status: Active Protocol: Document 05/27/20 09:47 MB (Rec: 05/27/20 12:57 MB [id number]) Shoulder Strength Shoulder Manual Muscle Testing Left Flexion 5 Normal Abduction (C5) 5 Normal External Rotation 4 Good Internal Rotation 4 Good Right Comments All MMT deferred at this time Elbow/Forearm Strength Elbow and Forearm Manual Muscle Testing Left Flexion (C6) 5 Normal Extension (C7) 5 Normal Pronation 5 Normal Supination 5 Normal Right Comments Deferred at this time PT-OP-Q Treatments Start: 05/27/20 07:20 Freq: Status: Active Protocol: Document 07/19/20 12:15 MB (Rec: 07/19/20 12:54 MB [id number]) Cardio Equipment Upper Body Ergometer (UBE) Duration (Minutes) 10 Other 1' forward and backward, alternating Therapeutic Exercises Supine Exercises PNF in supine Side bilateral Comments Without band, 10 reps and cues for slow and good form Flexion with looped band around wrists Side bilateral Comments 10 reps Chicken wing shoulder ER on pool noodle Side bilateral Comments 5 reps slowly, hold end-range Shoulder ER with band Side bilateral Comments 10 reps x2 Pect stretch Side bilateral Comments Over red pool noodle today, 20 -30 sec hold AAROM with cane Supine Exercise Name Flexion, abduction and ER today Side right Comments Assist of left hand, on red pool noodle, 10 reps all PT-OP-T Assessment and Plan Start: 05/27/20 07:20 Freq: Status: Active Protocol: Document 07/19/20 12:15 MB (Rec: 07/19/20 12:54 MB [id number]) Physical Therapy Assessment Rehab Potential Rehabilitation Potential Good Evaluation Complexity Number of Personal Factors/Comorbidities 1-2 Number of Body Systems Impaired 1-2 Clinical Presentation at Evaluation Stable Impairments Impairments Activity Tolerance,Balance, Coordination,Edema,Functional Activities,Integument,Pain, Posture,ROM,Soft Tissue Mobility,Strength Goals 7 Fci Goal (LTG) Pt will be able to don bra behind back and style hair with right hand to improve functional I with ADLs by . LTG Duration 8 weeks 6 Archeology Professor Goal (LTG) Pt will gait train at least 1650 feet in 6 minutes to decrease fall risk and improve community ambulation by . 06/25/20: Pt gait trains 1584 feet in 6 minutes with improved arm swing in counter clockwise direction, which is much improved LTG Duration 8 weeks 3 Archeology Professor Goal (LTG) Pt will perform progressive HEP with I including postural and alignment, flexibility, ROM and strengthenging exercises to improve right UE function by 08/26/20. 06/25/20: Pt is performing cane flexion, abduction, ER, tennis ball intrascapular massage, pelvic realignment exercises. LTG Duration 8 weeks 2 [facility] Goal (LTG) Pt will present with improved right shoulder AROM to at least 160 deg flexion and abduction and PROM ER and IR to 50 deg to improve functional use of her right arm by 08/26/20. 06/25/20: Right shoulder ROM today: standing AROM flexion 112 deg and abduction to 91 deg; passive supine ER to 35 deg and IR to 25 deg LTG Duration 8 weeks 1 Archeology Professor Goal (LTG) Pt will present with an improved QuickDASH score to no more than 20% to reflect improved functional mobility and use of her right arm by 08/26/20. 06/25/20: QuickDASH score reflects 40.90% impairment LTG Duration 8 weeks Assessment Summary Assessment Reviewed exercises as needed on pool noodle and advanced strengthening and PNF. Con't progress as such, consider body blade practice again and balance exercise. Physical Therapy Plan Frequency and Duration Frequency of Treatment 2x/Week Duration of Treatment 8 weeks Plan of Care Start Date 06/25/20 Plan of Care End Date 08/26/20 Therapeutic Interventions Therapeutic Interventions Balance Training,Canalithic Repositioning,Coordination Training,Gait Training,Home Exercise Program,Joint Mobilizations,Manual Therapy, Neuromuscular Re-education, Patient/Caregiver Education, Self-Care/Home Management, Sensory Integration,Soft Tissue Mobilization,Taping, Therapeutic Activities, Therapeutic Exercises Modalities Cold Pack/Ice Massage,Electric Stimulation,Hot Packs, Ultrasound Next Visit Focus/Plan Next Note Type Treatment Note Next Visit Plan Similar: balance exercises, body blade, con't UBE, band strengthening over pool noodle
--- NOTE | 2020-07-24 09:43 | PT.OTN ---
Current Diagnoses Other displaced fracture of upper end of right humerus, initial encounter for closed fracture (07/24/20) Physical Therapy Treatment Note PT-OP-A Visit Information Start: 05/27/20 07:20 Freq: Status: Active Protocol: Document 07/24/20 09:00 MB (Rec: 07/24/20 09:43 MB [id number]) Out-Patient Physical Therapy Visit Information Visit Information Visit Type Treatment Note Visit Note Medicare AARP Visit Start Time 09:00 Visit Stop Time 09:41 Total Visit Minutes 41 Visit Number 15 PT-OP-B Current Condition Start: 05/27/20 07:20 Freq: Status: Active Protocol: Document 05/27/20 09:47 MB (Rec: 05/27/20 10:22 MB [id number]) Current Condition History of Current Condition Onset Date 05/10/20 Current Complaints Right arm discomfort and disuse History of Current Condition Pt reports that on 05/10/20, she had a fall off a short ladder onto her right shoulder . She had heard a noise. She went to the ED and was found to have a humeral fracture. She underwent an ORIF on . Pt has worn the sling since 05/11/20 and was told at her post-op with Dr. Parish on 05/22/20 that she should wear the sling for 4 more weeks and con't pendulums. Pt sees the surgeon again 06/17. She is right handed. She has no numbness or tingling. Pt reports 3/10 right shoulder pain and 2/10 left hip pain. Pt reports a history of osteopenia, arthritis, back pain, high BP. Pt has been sleeping in a recliner chair. She tried sleeping in the bed on her left last night and slept better. Prior Treatments and Tests PT in the past and was told that she had one leg longer than the other and has exercises Treatment Goals Patient/Caregiver Goals To decrease right arm discomfort and improve use PT-OP-C Subjective Start: 05/27/20 07:20 Freq: Status: Active Protocol: Document 07/24/20 09:00 MB (Rec: 07/24/20 09:43 MB [id number]) OP-PT Subjective Patient Comments Patient Comments Pt states that she is doing pretty well. PT-OP-J Posture/Palpation/Skin Start: 05/27/20 07:20 Freq: Status: Active Protocol: Document 05/27/20 09:47 MB (Rec: 05/27/20 12:57 MB [id number]) Posture Evaluation Comments Posture Comments Pt standing: right arm edematous with yellowish ecchymosis around elbow and edema is pitting in forearm area, post-op incision healing anteromedial proximal arm grossly 4, right AC joint 2 in front of tragus, pt with spinal curvature changes with translation to the left upper body and convexity to the right at thoracic spine, right iliac crest is higher than the left, increased valgus left knee with left foot overpronation. PT-OP-K Range of Motion Start: 05/27/20 07:20 Freq: Status: Active Protocol: Document 05/27/20 09:47 MB (Rec: 05/27/20 12:57 MB [id number]) Cervical Spine Range of Motion Cervical Spine Active Testing Position Standing Rotation Left 45 Rotation Right 50 Lateral Flexion Left 25 Lateral Flexion Right 25 Shoulder Goniometric Range of Motion Shoulder Right Shoulder ROM WFL No Testing Position Supine Comments AROM deferred post-op 15-16 days per doctor's order Supine PROM flexion to 45 deg, abduction to 30 deg, pt guarding movement. ER and IR in 30 deg abduction: ER 0 deg and IR 5 deg Left shoulder Shoulder ROM WFL Yes Testing Position Standing Comments Supine PROM with shoulder in 90/90: ER 60 and IR 45 deg PT-OP-M Strength Start: 05/27/20 07:20 Freq: Status: Active Protocol: Document 05/27/20 09:47 MB (Rec: 05/27/20 12:57 MB [id number]) Shoulder Strength Shoulder Manual Muscle Testing Left Flexion 5 Normal Abduction (C5) 5 Normal External Rotation 4 Good Internal Rotation 4 Good Right Comments All MMT deferred at this time Elbow/Forearm Strength Elbow and Forearm Manual Muscle Testing Left Flexion (C6) 5 Normal Extension (C7) 5 Normal Pronation 5 Normal Supination 5 Normal Right Comments Deferred at this time PT-OP-Q Treatments Start: 05/27/20 07:20 Freq: Status: Active Protocol: Document 07/24/20 09:00 MB (Rec: 07/24/20 09:43 MB [id number]) Cardio Equipment Upper Body Ergometer (UBE) Duration (Minutes) 10 Other 1' forward and 1' backward Therapeutic Exercises Supine Exercises PNF in supine Side bilateral Resistance Level 1 band Equipment Used [place] pool noodle Comments 10 reps each side Standing Exercises Racquet ball STM Standing Exercise Name Intrascapular STM, MWM infraspinatus and upper traps Side bilateral Comments Pt standing for infra and intrascapular muscles, sitting for upper traps Manual Therapy Treatment Other Other Manual Treatments R shoulder and scapular mobs: pt prone, side lying and supine: PA and AP mobs grade II-III at the joint line, passive abduction, IR, ER and flexion PT-OP-T Assessment and Plan Start: 05/27/20 07:20 Freq: Status: Active Protocol: Document 07/24/20 09:00 MB (Rec: 07/24/20 09:43 MB [id number]) Physical Therapy Assessment Rehab Potential Rehabilitation Potential Good Evaluation Complexity Number of Personal Factors/Comorbidities 1-2 Number of Body Systems Impaired 1-2 Clinical Presentation at Evaluation Stable Impairments Impairments Activity Tolerance,Balance, Coordination,Edema,Functional Activities,Integument,Pain, Posture,ROM,Soft Tissue Mobility,Strength Goals 7 Pacu Nurse Goal (LTG) Pt will be able to don bra behind back and style hair with right hand to improve functional I with ADLs by . LTG Duration 8 weeks 6 Senior Living Goal (LTG) Pt will gait train at least 1650 feet in 6 minutes to decrease fall risk and improve community ambulation by . 06/25/20: Pt gait trains 1584 feet in 6 minutes with improved arm swing in counter clockwise direction, which is much improved LTG Duration 8 weeks 3 Senior Living Goal (LTG) Pt will perform progressive HEP with I including postural and alignment, flexibility, ROM and strengthenging exercises to improve right UE function by 08/26/20. 06/25/20: Pt is performing cane flexion, abduction, ER, tennis ball intrascapular massage, pelvic realignment exercises. LTG Duration 8 weeks 2 Pacu Nurse Goal (LTG) Pt will present with improved right shoulder AROM to at least 160 deg flexion and abduction and PROM ER and IR to 50 deg to improve functional use of her right arm by 08/26/20. 06/25/20: Right shoulder ROM today: standing AROM flexion 112 deg and abduction to 91 deg; passive supine ER to 35 deg and IR to 25 deg LTG Duration 8 weeks 1 Senior Living Goal (LTG) Pt will present with an improved QuickDASH score to no more than 20% to reflect improved functional mobility and use of her right arm by 08/26/20. 06/25/20: QuickDASH score reflects 40.90% impairment LTG Duration 8 weeks Assessment Summary Assessment Reviewed racquet ball exercises today and pt performs with demo, cues and practice. Progressed PNF with use of band. Physical Therapy Plan Frequency and Duration Frequency of Treatment 2x/Week Duration of Treatment 8 weeks Plan of Care Start Date 06/25/20 Plan of Care End Date 08/26/20 Therapeutic Interventions Therapeutic Interventions Balance Training,Canalithic Repositioning,Coordination Training,Gait Training,Home Exercise Program,Joint Mobilizations,Manual Therapy, Neuromuscular Re-education, Patient/Caregiver Education, Self-Care/Home Management, Sensory Integration,Soft Tissue Mobilization,Taping, Therapeutic Activities, Therapeutic Exercises Modalities Cold Pack/Ice Massage,Electric Stimulation,Hot Packs, Ultrasound Next Visit Focus/Plan Next Note Type Treatment Note Next Visit Plan Mobilizations as appropriate, balance exercises, body blade, con't UBE
--- NOTE | 2020-07-26 11:12 | PT.OTN ---
Current Diagnoses Other displaced fracture of upper end of right humerus, initial encounter for closed fracture (07/26/20) Physical Therapy Treatment Note PT-OP-A Visit Information Start: 05/27/20 07:20 Freq: Status: Active Protocol: Document 07/26/20 10:31 MB (Rec: 07/26/20 11:11 MB [id number]) Out-Patient Physical Therapy Visit Information Visit Information Visit Type Treatment Note Visit Note Medicare AARP Visit Start Time 10:31 Visit Stop Time 11:11 Total Visit Minutes 40 Visit Number 16 PT-OP-B Current Condition Start: 05/27/20 07:20 Freq: Status: Active Protocol: Document 05/27/20 09:47 MB (Rec: 05/27/20 10:22 MB [id number]) Current Condition History of Current Condition Onset Date 05/10/20 Current Complaints Right arm discomfort and disuse History of Current Condition Pt reports that on 05/10/20, she had a fall off a short ladder onto her right shoulder . She had heard a noise. She went to the ED and was found to have a humeral fracture. She underwent an ORIF on . Pt has worn the sling since 05/11/20 and was told at her post-op with Dr. Parish on 05/22/20 that she should wear the sling for 4 more weeks and con't pendulums. Pt sees the surgeon again 06/17. She is right handed. She has no numbness or tingling. Pt reports 3/10 right shoulder pain and 2/10 left hip pain. Pt reports a history of osteopenia, arthritis, back pain, high BP. Pt has been sleeping in a recliner chair. She tried sleeping in the bed on her left last night and slept better. Prior Treatments and Tests PT in the past and was told that she had one leg longer than the other and has exercises Treatment Goals Patient/Caregiver Goals To decrease right arm discomfort and improve use PT-OP-C Subjective Start: 05/27/20 07:20 Freq: Status: Active Protocol: Document 07/26/20 10:31 MB (Rec: 07/26/20 11:11 MB [id number]) OP-PT Subjective Patient Comments Patient Comments Pt states she is doing well. PT-OP-J Posture/Palpation/Skin Start: 05/27/20 07:20 Freq: Status: Active Protocol: Document 05/27/20 09:47 MB (Rec: 05/27/20 12:57 MB [id number]) Posture Evaluation Comments Posture Comments Pt standing: right arm edematous with yellowish ecchymosis around elbow and edema is pitting in forearm area, post-op incision healing anteromedial proximal arm grossly 4, right AC joint 2 in front of tragus, pt with spinal curvature changes with translation to the left upper body and convexity to the right at thoracic spine, right iliac crest is higher than the left, increased valgus left knee with left foot overpronation. PT-OP-K Range of Motion Start: 05/27/20 07:20 Freq: Status: Active Protocol: Document 05/27/20 09:47 MB (Rec: 05/27/20 12:57 MB [id number]) Cervical Spine Range of Motion Cervical Spine Active Testing Position Standing Rotation Left 45 Rotation Right 50 Lateral Flexion Left 25 Lateral Flexion Right 25 Shoulder Goniometric Range of Motion Shoulder Right Shoulder ROM WFL No Testing Position Supine Comments AROM deferred post-op 15-16 days per doctor's order Supine PROM flexion to 45 deg, abduction to 30 deg, pt guarding movement. ER and IR in 30 deg abduction: ER 0 deg and IR 5 deg Left shoulder Shoulder ROM WFL Yes Testing Position Standing Comments Supine PROM with shoulder in 90/90: ER 60 and IR 45 deg PT-OP-M Strength Start: 05/27/20 07:20 Freq: Status: Active Protocol: Document 05/27/20 09:47 MB (Rec: 05/27/20 12:57 MB [id number]) Shoulder Strength Shoulder Manual Muscle Testing Left Flexion 5 Normal Abduction (C5) 5 Normal External Rotation 4 Good Internal Rotation 4 Good Right Comments All MMT deferred at this time Elbow/Forearm Strength Elbow and Forearm Manual Muscle Testing Left Flexion (C6) 5 Normal Extension (C7) 5 Normal Pronation 5 Normal Supination 5 Normal Right Comments Deferred at this time PT-OP-Q Treatments Start: 05/27/20 07:20 Freq: Status: Active Protocol: Document 07/26/20 10:31 MB (Rec: 07/26/20 11:11 MB [id number]) Cardio Equipment Upper Body Ergometer (UBE) Duration (Minutes) 10 Other 1' forward and 1' backward Therapeutic Exercises Standing Exercises Body Blade Standing Exercise Name 13' of exercises Comments Yellow blade today, static and dynamic movement right arm, then B Manual Therapy Treatment Other Other Manual Treatments Modified Castaner Protocol: R shoulder and scapular mobs: pt prone, side lying and supine: PA and AP mobs grade II-III at the joint line, passive abduction, IR, ER and flexion PT-OP-T Assessment and Plan Start: 05/27/20 07:20 Freq: Status: Active Protocol: Document 07/26/20 10:31 MB (Rec: 07/26/20 11:11 MB [id number]) Physical Therapy Assessment Rehab Potential Rehabilitation Potential Good Evaluation Complexity Number of Personal Factors/Comorbidities 1-2 Number of Body Systems Impaired 1-2 Clinical Presentation at Evaluation Stable Impairments Impairments Activity Tolerance,Balance, Coordination,Edema,Functional Activities,Integument,Pain, Posture,ROM,Soft Tissue Mobility,Strength Goals 7 Company Controller Goal (LTG) Pt will be able to don bra behind back and style hair with right hand to improve functional I with ADLs by . LTG Duration 8 weeks 6 Company Controller Goal (LTG) Pt will gait train at least 1650 feet in 6 minutes to decrease fall risk and improve community ambulation by . 06/25/20: Pt gait trains 1584 feet in 6 minutes with improved arm swing in counter clockwise direction, which is much improved LTG Duration 8 weeks 3 Company Controller Goal (LTG) Pt will perform progressive HEP with I including postural and alignment, flexibility, ROM and strengthenging exercises to improve right UE function by 08/26/20. 06/25/20: Pt is performing cane flexion, abduction, ER, tennis ball intrascapular massage, pelvic realignment exercises. LTG Duration 8 weeks 2 Senior Care Goal (LTG) Pt will present with improved right shoulder AROM to at least 160 deg flexion and abduction and PROM ER and IR to 50 deg to improve functional use of her right arm by 08/26/20. 06/25/20: Right shoulder ROM today: standing AROM flexion 112 deg and abduction to 91 deg; passive supine ER to 35 deg and IR to 25 deg LTG Duration 8 weeks 1 Senior Care Goal (LTG) Pt will present with an improved QuickDASH score to no more than 20% to reflect improved functional mobility and use of her right arm by 08/26/20. 06/25/20: QuickDASH score reflects 40.90% impairment LTG Duration 8 weeks Assessment Summary Assessment Reviewed body blade today and pt does much better. Ongoing manual work. Pt is progressing well. Anticipate two more PT treatments. Physical Therapy Plan Frequency and Duration Frequency of Treatment 2x/Week Duration of Treatment 8 weeks Plan of Care Start Date 06/25/20 Plan of Care End Date 08/26/20 Therapeutic Interventions Therapeutic Interventions Balance Training,Canalithic Repositioning,Coordination Training,Gait Training,Home Exercise Program,Joint Mobilizations,Manual Therapy, Neuromuscular Re-education, Patient/Caregiver Education, Self-Care/Home Management, Sensory Integration,Soft Tissue Mobilization,Taping, Therapeutic Activities, Therapeutic Exercises Modalities Cold Pack/Ice Massage,Electric Stimulation,Hot Packs, Ultrasound Next Visit Focus/Plan Next Note Type Treatment Note Next Visit Plan Manual work, review exercises as needed, prepare for d/c in two treatments
--- NOTE | 2020-07-29 10:28 | PT.OTN ---
Current Diagnoses Other displaced fracture of upper end of right humerus, initial encounter for closed fracture (07/29/20) Physical Therapy Treatment Note PT-OP-A Visit Information Start: 05/27/20 07:20 Freq: Status: Active Protocol: Document 07/29/20 09:41 MB (Rec: 07/29/20 10:28 MB [id number]) Out-Patient Physical Therapy Visit Information Visit Information Visit Type Treatment Note Visit Note Medicare AARP Visit Start Time 09:41 Visit Stop Time 10:21 Total Visit Minutes 40 Visit Number 17 PT-OP-B Current Condition Start: 05/27/20 07:20 Freq: Status: Active Protocol: Document 05/27/20 09:47 MB (Rec: 05/27/20 10:22 MB [id number]) Current Condition History of Current Condition Onset Date 05/10/20 Current Complaints Right arm discomfort and disuse History of Current Condition Pt reports that on 05/10/20, she had a fall off a short ladder onto her right shoulder . She had heard a noise. She went to the ED and was found to have a humeral fracture. She underwent an ORIF on . Pt has worn the sling since 05/11/20 and was told at her post-op with Dr. Parish on 05/22/20 that she should wear the sling for 4 more weeks and con't pendulums. Pt sees the surgeon again 06/17. She is right handed. She has no numbness or tingling. Pt reports 3/10 right shoulder pain and 2/10 left hip pain. Pt reports a history of osteopenia, arthritis, back pain, high BP. Pt has been sleeping in a recliner chair. She tried sleeping in the bed on her left last night and slept better. Prior Treatments and Tests PT in the past and was told that she had one leg longer than the other and has exercises Treatment Goals Patient/Caregiver Goals To decrease right arm discomfort and improve use PT-OP-C Subjective Start: 05/27/20 07:20 Freq: Status: Active Protocol: Document 07/29/20 09:41 MB (Rec: 07/29/20 10:28 MB [id number]) OP-PT Subjective Patient Comments Patient Comments Pt states that she got her body blade. PT-OP-J Posture/Palpation/Skin Start: 05/27/20 07:20 Freq: Status: Active Protocol: Document 05/27/20 09:47 MB (Rec: 05/27/20 12:57 MB [id number]) Posture Evaluation Comments Posture Comments Pt standing: right arm edematous with yellowish ecchymosis around elbow and edema is pitting in forearm area, post-op incision healing anteromedial proximal arm grossly 4, right AC joint 2 in front of tragus, pt with spinal curvature changes with translation to the left upper body and convexity to the right at thoracic spine, right iliac crest is higher than the left, increased valgus left knee with left foot overpronation. PT-OP-K Range of Motion Start: 05/27/20 07:20 Freq: Status: Active Protocol: Document 05/27/20 09:47 MB (Rec: 05/27/20 12:57 MB [id number]) Cervical Spine Range of Motion Cervical Spine Active Testing Position Standing Rotation Left 45 Rotation Right 50 Lateral Flexion Left 25 Lateral Flexion Right 25 Shoulder Goniometric Range of Motion Shoulder Right Shoulder ROM WFL No Testing Position Supine Comments AROM deferred post-op 15-16 days per doctor's order Supine PROM flexion to 45 deg, abduction to 30 deg, pt guarding movement. ER and IR in 30 deg abduction: ER 0 deg and IR 5 deg Left shoulder Shoulder ROM WFL Yes Testing Position Standing Comments Supine PROM with shoulder in 90/90: ER 60 and IR 45 deg PT-OP-M Strength Start: 05/27/20 07:20 Freq: Status: Active Protocol: Document 05/27/20 09:47 MB (Rec: 05/27/20 12:57 MB [id number]) Shoulder Strength Shoulder Manual Muscle Testing Left Flexion 5 Normal Abduction (C5) 5 Normal External Rotation 4 Good Internal Rotation 4 Good Right Comments All MMT deferred at this time Elbow/Forearm Strength Elbow and Forearm Manual Muscle Testing Left Flexion (C6) 5 Normal Extension (C7) 5 Normal Pronation 5 Normal Supination 5 Normal Right Comments Deferred at this time PT-OP-Q Treatments Start: 05/27/20 07:20 Freq: Status: Active Protocol: Document 07/29/20 09:41 MB (Rec: 07/29/20 10:28 MB [id number]) Cardio Equipment Upper Body Ergometer (UBE) Duration (Minutes) 10 Other 1' forward and 1' backward Manual Therapy Treatment Other Other Manual Treatments Modified [place] Protocol: R shoulder and scapular mobs: pt prone, side lying and supine: PA and AP mobs grade II-III at the joint line, passive abduction, IR, ER and flexion. Pt prone: PA mobs with right shoulder in ER and IR, AAROM abduction in standing. STM right forearm and MWM wrist extensors with PT providing TrP pressure and pt performing active finger extension PT-OP-T Assessment and Plan Start: 05/27/20 07:20 Freq: Status: Active Protocol: Document 07/29/20 09:41 MB (Rec: 07/29/20 10:28 MB [id number]) Physical Therapy Assessment Rehab Potential Rehabilitation Potential Good Evaluation Complexity Number of Personal Factors/Comorbidities 1-2 Number of Body Systems Impaired 1-2 Clinical Presentation at Evaluation Stable Impairments Impairments Activity Tolerance,Balance, Coordination,Edema,Functional Activities,Integument,Pain, Posture,ROM,Soft Tissue Mobility,Strength Goals 7 Care Analyst Goal (LTG) Pt will be able to don bra behind back and style hair with right hand to improve functional I with ADLs by . LTG Duration 8 weeks 6 Senior Care Goal (LTG) Pt will gait train at least 1650 feet in 6 minutes to decrease fall risk and improve community ambulation by . 06/25/20: Pt gait trains 1584 feet in 6 minutes with improved arm swing in counter clockwise direction, which is much improved LTG Duration 8 weeks 3 Senior Care Goal (LTG) Pt will perform progressive HEP with I including postural and alignment, flexibility, ROM and strengthenging exercises to improve right UE function by 08/26/20. 06/25/20: Pt is performing cane flexion, abduction, ER, tennis ball intrascapular massage, pelvic realignment exercises. LTG Duration 8 weeks 2 Care Analyst Goal (LTG) Pt will present with improved right shoulder AROM to at least 160 deg flexion and abduction and PROM ER and IR to 50 deg to improve functional use of her right arm by 08/26/20. 06/25/20: Right shoulder ROM today: standing AROM flexion 112 deg and abduction to 91 deg; passive supine ER to 35 deg and IR to 25 deg LTG Duration 8 weeks 1 Care Analyst Goal (LTG) Pt will present with an improved QuickDASH score to no more than 20% to reflect improved functional mobility and use of her right arm by 08/26/20. 06/25/20: QuickDASH score reflects 40.90% impairment LTG Duration 8 weeks Assessment Summary Assessment Pt con't with improvements in pain, range and right forearm appearance with PT. Anticipate d/c next treatment date. Physical Therapy Plan Frequency and Duration Frequency of Treatment 2x/Week Duration of Treatment 8 weeks Plan of Care Start Date 06/25/20 Plan of Care End Date 08/26/20 Therapeutic Interventions Therapeutic Interventions Balance Training,Canalithic Repositioning,Coordination Training,Gait Training,Home Exercise Program,Joint Mobilizations,Manual Therapy, Neuromuscular Re-education, Patient/Caregiver Education, Self-Care/Home Management, Sensory Integration,Soft Tissue Mobilization,Taping, Therapeutic Activities, Therapeutic Exercises Modalities Cold Pack/Ice Massage,Electric Stimulation,Hot Packs, Ultrasound Next Visit Focus/Plan Next Note Type Discharge Summary
--- NOTE | 2020-08-05 14:07 | PT.OTN ---
Current Diagnoses Other displaced fracture of upper end of right humerus, initial encounter for closed fracture (08/05/20) Physical Therapy Treatment Note PT-OP-A Visit Information Start: 05/27/20 07:20 Freq: Status: Active Protocol: Document 08/05/20 09:45 MB (Rec: 08/05/20 10:15 MB [id number]) Out-Patient Physical Therapy Visit Information Visit Information Visit Type Treatment Note Visit Note Medicare AARP Visit Start Time 09:45 Visit Stop Time 10:30 Total Visit Minutes 45 Visit Number 18 PT-OP-B Current Condition Start: 05/27/20 07:20 Freq: Status: Active Protocol: Document 05/27/20 09:47 MB (Rec: 05/27/20 10:22 MB [id number]) Current Condition History of Current Condition Onset Date 05/10/20 Current Complaints Right arm discomfort and disuse History of Current Condition Pt reports that on 05/10/20, she had a fall off a short ladder onto her right shoulder . She had heard a noise. She went to the ED and was found to have a humeral fracture. She underwent an ORIF on . Pt has worn the sling since 05/11/20 and was told at her post-op with Dr. Parish on 05/22/20 that she should wear the sling for 4 more weeks and con't pendulums. Pt sees the surgeon again 06/17. She is right handed. She has no numbness or tingling. Pt reports 3/10 right shoulder pain and 2/10 left hip pain. Pt reports a history of osteopenia, arthritis, back pain, high BP. Pt has been sleeping in a recliner chair. She tried sleeping in the bed on her left last night and slept better. Prior Treatments and Tests PT in the past and was told that she had one leg longer than the other and has exercises Treatment Goals Patient/Caregiver Goals To decrease right arm discomfort and improve use PT-OP-C Subjective Start: 05/27/20 07:20 Freq: Status: Active Protocol: Document 08/05/20 09:45 MB (Rec: 08/05/20 10:15 MB [id number]) OP-PT Subjective Patient Comments Patient Comments Pt states that she went to the surgeon who was very happy with her progress. Things are healing well and there is still one place that has fragments and needs to fill in . PT-OP-J Posture/Palpation/Skin Start: 05/27/20 07:20 Freq: Status: Active Protocol: Document 05/27/20 09:47 MB (Rec: 05/27/20 12:57 MB [id number]) Posture Evaluation Comments Posture Comments Pt standing: right arm edematous with yellowish ecchymosis around elbow and edema is pitting in forearm area, post-op incision healing anteromedial proximal arm grossly 4, right AC joint 2 in front of tragus, pt with spinal curvature changes with translation to the left upper body and convexity to the right at thoracic spine, right iliac crest is higher than the left, increased valgus left knee with left foot overpronation. PT-OP-K Range of Motion Start: 05/27/20 07:20 Freq: Status: Active Protocol: Document 05/27/20 09:47 MB (Rec: 05/27/20 12:57 MB [id number]) Cervical Spine Range of Motion Cervical Spine Active Testing Position Standing Rotation Left 45 Rotation Right 50 Lateral Flexion Left 25 Lateral Flexion Right 25 Shoulder Goniometric Range of Motion Shoulder Right Shoulder ROM WFL No Testing Position Supine Comments AROM deferred post-op 15-16 days per doctor's order Supine PROM flexion to 45 deg, abduction to 30 deg, pt guarding movement. ER and IR in 30 deg abduction: ER 0 deg and IR 5 deg Left shoulder Shoulder ROM WFL Yes Testing Position Standing Comments Supine PROM with shoulder in 90/90: ER 60 and IR 45 deg PT-OP-M Strength Start: 05/27/20 07:20 Freq: Status: Active Protocol: Document 05/27/20 09:47 MB (Rec: 05/27/20 12:57 MB [id number]) Shoulder Strength Shoulder Manual Muscle Testing Left Flexion 5 Normal Abduction (C5) 5 Normal External Rotation 4 Good Internal Rotation 4 Good Right Comments All MMT deferred at this time Elbow/Forearm Strength Elbow and Forearm Manual Muscle Testing Left Flexion (C6) 5 Normal Extension (C7) 5 Normal Pronation 5 Normal Supination 5 Normal Right Comments Deferred at this time PT-OP-Q Treatments Start: 05/27/20 07:20 Freq: Status: Active Protocol: Document 08/05/20 09:45 MB (Rec: 08/05/20 10:15 MB [id number]) Cardio Equipment Upper Body Ergometer (UBE) Duration (Minutes) 10 Other 1' forward and 1' backward Therapeutic Exercises Supine Exercises Flexion with looped band around wrists Supine Exercise Name Added elbow flexion and extension today with this Side bilateral Equipment Used Yellow band around wrists Comments 10 reps both Gait Training Gait Activity 6MWT Comments Improved gait today throughout treatment and with 6MWT and see 6MWT goal for details today Manual Therapy Treatment Other Other Manual Treatments Modified [place] Protocol: R shoulder and scapular mobs: pt prone, side lying and supine: PA and AP mobs grade II-III at the joint line, passive abduction, IR, ER and flexion. Pt prone: PA mobs with right shoulder in ER and IR PT-OP-T Assessment and Plan Start: 05/27/20 07:20 Freq: Status: Active Protocol: Document 08/05/20 09:45 MB (Rec: 08/05/20 10:15 MB [id number]) Physical Therapy Assessment Rehab Potential Rehabilitation Potential Good Evaluation Complexity Number of Personal Factors/Comorbidities 1-2 Number of Body Systems Impaired 1-2 Clinical Presentation at Evaluation Stable Impairments Impairments Activity Tolerance,Balance, Coordination,Edema,Functional Activities,Integument,Pain, Posture,ROM,Soft Tissue Mobility,Strength Goals 7 Usp Goal (LTG) Pt will be able to don bra behind back and style hair with right hand to improve functional I with ADLs by . 08/05/20: Pt cannot quite manage her bra behind her back . She is working IR with the towel. LTG Duration Partially met 6 Pill Machine Operator Goal (LTG) Pt will gait train at least 1650 feet in 6 minutes to decrease fall risk and improve community ambulation by . 08/05/20: Pt gait trained 1763 feet in 6 minutes in CCW direction LTG Duration Surpassed goal 3 Usp Goal (LTG) Pt will perform progressive HEP with I including postural and alignment, flexibility, ROM and strengthenging exercises to improve right UE function by 08/26/20. 08/05/20: Pt is performing PNF exercise with level 2 band, shoulder flexion, pect stretch , she will try triceps exercise, shoulder ER, shoulder ER stretch, open book , shoulder abduction with band , ER with cane, body blade, pelvic realignment exercises LTG Duration Met 2 Usp Goal (LTG) Pt will present with improved right shoulder AROM to at least 160 deg flexion and abduction and PROM ER and IR to 50 deg to improve functional use of her right arm by 08/26/20. 06/25/20: Right shoulder ROM today: standing AROM flexion 130 deg and abduction to 119 deg; passive supine ER to 35 deg and IR to 35 deg LTG Duration Progressed 1 Usp Goal (LTG) Pt will present with an improved QuickDASH score to no more than 20% to reflect improved functional mobility and use of her right arm by 08/26/20. 08/05/20: QuickDASH score reflects 11.36% impairment LTG Duration Surpassed goal Assessment Summary Assessment Pt has surpassed QuickDASH and 6MWT goals. She has met HEP goal and has progressed towards ROM and functional range goals. Hardware placement and thoracic spine postural changes have been barriers to completely meeting ROM goals. She has maximized PT potential. Will d/c PT and pt will con't with HEP at home .
== END 2020-08-05 15:00 | disposition home or self-care (01) ==
LOC: PHYS 09:45
PROVIDERS: Family Provider Family Medicine; PCP Family Medicine; Referring Provider Orthopaedic Surgery Foot and Ankle Surgery; Visit Provider Orthopaedic Surgery Foot and Ankle Surgery
DX: S42.291A Other displaced fracture of upper end of right humerus, initial encounter for closed fracture (principal)
CPT/HCPCS: 97110; 97116; 97140; 97161; 97535

== ENCOUNTER → 2020-08-31 09:41 | Outpatient (CLI) | payer MEDICARE, SELFPAY ==
--- NOTE | 2020-08-31 | DI.MG.S_ITS ---
BILATERAL DIGITAL SCREENING MAMMOGRAM 3D/2D WITH CAD: 08/31/2020 CLINICAL: Routine screening. Family history of breast cancer. Comparison is made to exams dated: 12/24/2017 mammogram, 07/30/2016 mammogram, and 11/27/2014 mammogram - [facility]. The tissue of both breasts is heterogeneously dense. This may lower the sensitivity of mammography. Current study was also evaluated with a Computer Aided Detection (CAD) system. There are benign vascular calcifications in both breasts. No significant masses, calcifications, or other findings are seen in either breast. There has been no significant interval change. IMPRESSION: BENIGN There is no mammographic evidence of malignancy. A 1 year screening mammogram is recommended. This exam was interpreted at Station ID: [id number]. NOTE: For mammograms, a report in lay terms will be sent to the patient. Approximately 15% of breast malignancies will not be visualized mammographically. In the management of a palpable breast mass, a negative mammogram must not discourage biopsy of a clinically suspicious lesion. Electronically Signed By: Abhijit olivas/jason:09/02/2020 09:11:56 letter sent: Normal Exam ACR BI-RADS Category 2: Benign Finding(s) [id number]
== END ==
PROVIDERS: Family Provider Family Medicine; PCP Family Medicine; Referring Provider Family Medicine; Visit Provider Family Medicine
DX: Z12.31 Encounter for screening mammogram for malignant neoplasm of breast (principal); Z80.3 Family history of malignant neoplasm of breast
CPT/HCPCS: 77063; 77067

== ENCOUNTER → 2020-11-11 09:36 | Outpatient (CLI) | payer MEDICARE, SELFPAY | PROVIDERS: Family Provider Family Medicine; PCP Family Medicine; Referring Provider Family Medicine; Visit Provider Family Medicine | DX: M81.0 Age-related osteoporosis without current pathological fracture (principal); M85.852 Other specified disorders of bone density and structure, left thigh; M85.851 Other specified disorders of bone density and structure, right thigh | CPT/HCPCS: 77080 ==

== ENCOUNTER → 2020-12-27 10:41 | Outpatient (CLI) | payer MEDICARE, SELFPAY ==
[2020-12-27] MEDS: COVID-19 VACC #3, MRNA(MOD) 50 MCG/0.25 ML VIAL IM (10:49)
== END ==
PROVIDERS: PCP Family Medicine; Visit Provider Internal Medicine
DX: Z23 Encounter for immunization (principal)
CPT/HCPCS: 0013A; 91301

== ENCOUNTER → 2022-06-10 11:47 | Outpatient (CLI) | payer MEDICARE, SELFPAY ==
--- NOTE | 2022-06-10 11:50 | DI.MG.S_ITS ---
BILATERAL DIGITAL SCREENING MAMMOGRAM 3D/2D WITH CAD: 06/10/2022 CLINICAL: Routine screening. Family history of breast cancer. Comparison is made to exams dated: 08/31/2020 mammogram, 12/24/2017 mammogram, and 07/30/2016 mammogram - [facility]. Both breasts are heterogeneously dense, which may obscure small masses (category c / 51-75% glandular tissue). Current study was also evaluated with a Computer Aided Detection (CAD) system. There are benign vascular calcifications in both breasts. No significant masses, calcifications, or other findings are seen in either breast. There has been no significant interval change. IMPRESSION: BENIGN There is no mammographic evidence of malignancy. A 1 year screening mammogram is recommended. Based on the Tyrer Cuzick model (a risk assessment model) the patient's lifetime risk is 15.1% and her 10 year risk is 0.0%. According to the ACR, ACS, and NCCN guidelines, an annual breast MRI exam along with mammogram is recommended if the patient's lifetime risk is 20% or greater. This exam was interpreted at Station ID: [id number]. NOTE: For mammograms, a report in lay terms will be sent to the patient. Approximately 15% of breast malignancies will not be visualized mammographically. In the management of a palpable breast mass, a negative mammogram must not discourage biopsy of a clinically suspicious lesion. Electronically Signed By: Jony pérez/jason:06/10/2022 16:35:03 letter sent: Normal Exam ACR BI-RADS Category 2: Benign Finding(s) 3342F
== END ==
PROVIDERS: PCP Family Medicine; Referring Provider Family Medicine; Visit Provider Family Medicine
DX: Z12.31 Encounter for screening mammogram for malignant neoplasm of breast (principal); Z80.3 Family history of malignant neoplasm of breast
CPT/HCPCS: 77063; 77067

== ENCOUNTER → 2023-03-30 12:35 | Outpatient (CLI) | payer MEDICARE, SELFPAY ==
--- NOTE | 2023-03-30 12:36 | DI.RAD.S_ITS ---
Bone Density Report Name: ASHLEY KATZ Age: 77 Sex: Female Ethnicity: White Date of : 1945 Indication: postmenopausal osteoporosis; Referring Provider: WINIFRED LEDESMA Study: Bone densitometry was performed. Exam Date: March 30, 2023 Accession number: [id number] Bone Density: Region BMD T-score Z-score Classification AP Spine(L1-L4) 1.039 -0.1 2.6 Normal Femoral Neck (Left) 0.657 -1.7 0.5 Osteopenia Total Hip (Left) 0.602 -2.8 -0.8 Osteoporosis Femoral Neck (Right) 0.574 -2.5 -0.2 Osteoporosis Total Hip (Right) 0.600 -2.8 -0.8 Osteoporosis Total Hip Mean 0.601 -2.8 -0.8 Osteoporosis World Health Organization criteria for BMD impression classify patients as: Normal (T-score at or above -1.0), Osteopenia (T-score between -1.0 and -2.5), or Osteoporosis (T-score at or below -2.5). 10-year Fracture Risk: FRAX not reported because: Some T-score for Spine Total or Hip Total or Femoral Neck at or below -2.5 Previous Exams: -- Region Exam Age BMD T-score BMD Change BMD Change Date g/cm2 vs Baseline vs Previous -- AP Spine (L1-L4) 03/30/2023 77 1.039 -0.1 0.007 (0.7%)# 0.007 (0.7%)# 11/11/2020 74 1.032 -0.1 Total Hip(Left) 03/30/2023 77 0.602 -2.8 -0.016 (-2.5%)# -0.016 (-2.5%)# 11/11/2020 74 0.617 -2.7 Total Hip(Right) 03/30/2023 77 0.600 -2.8 -0.042 (-6.6%)# -0.042 (-6.6%)# 11/11/2020 74 0.643 -2.5 -- *Denotes significance at 95% confidence level, LSC for AP Spine = 0.022 g/cm2, LSC for Total Hip = 0.027 g/cm2 # Denotes dissimilar scan types or analysis methods Impression: The patient has osteoporosis, based on the Left Total Hip T-score. No significant bone loss was observed. Discussion: INCREASED RISK OF FRACTURE. BONE DENSITY IS UNDESIRABLY LOW AT ONE OR MORE SKELETAL SITES, CONSISTENT WITH POSTMENOPAUSAL OSTEOPOROSIS. This patient's lowest T-score meets the World Health Organization's (WHO) criteria for osteoporosis at one or more sites (T-score -2.5 or below). In untreated patients, the risk of osteoporotic fracture increases approximately two-fold for each 1.0 SD decrease in T-score. Low bone density is not the only risk factor for fracture; also consider factors such as patient's age, frailty or poor health, risk of falling, risk of injury, previous osteoporotic fracture, family history of osteoporosis, cigarette smoking, low body weight, etc. Not everyone with low bone mineral density has osteoporosis; osteomalacia and other metabolic bone disorders should also be considered. Patients who have osteoporosis should be evaluated for specific diseases and conditions (secondary causes) that may cause or contribute to bone loss. The [place] [employer] Endocrinologists (AACE) and National Osteoporosis Foundation (NOF) recommend pharmacologic intervention for all postmenopausal women whose T-score is in this range. The patient should follow a healthful lifestyle (good nutrition with adequate calcium and vitamin D, and appropriate weight-bearing exercise). Follow-Up: Consider a repeat BMD and Vertebral Fracture Assessment (VFA) exam in 2 years or sooner if medically necessary, to reassess this patient's status. Reported by: SHIRA KENYON M.D. on 03/30/2023 1:14:00 PM.
== END ==
LOC: RAD 12:36
PROVIDERS: PCP Family Medicine; Referring Provider Family Medicine; Visit Provider Family Medicine
DX: M81.0 Age-related osteoporosis without current pathological fracture (principal)
CPT/HCPCS: 77080

== ENCOUNTER → 2023-04-13 10:02 | Outpatient (CLI) | payer MEDICARE, SELFPAY ==
--- NOTE | 2023-04-13 10:05 | DI.RAD.S_ITS ---
PROCEDURE: XR KNEE RT 3V INDICATIONS: CHRONIC PAIN OF RIGHT KNEE TECHNIQUE: 3 views of the knee were acquired. COMPARISON: None. FINDINGS: Bones: No fractures or dislocations. Moderate tricompartmental joint space narrowing and juxta-articular osteophytosis. Chondrocalcinosis in the medial compartment. No suspicious bony lesions. Soft tissues: Small joint effusion. No suspicious soft tissue calcifications. IMPRESSION: 1. No acute osseous abnormality. 2. Moderate tricompartmental osteoarthritis. 3. Chondrocalcinosis in the medial compartment. Dictated by: Ligia Marques M.D. on 04/13/2023 at 18:01 Approved by: Ligia Marques M.D. on 04/13/2023 at 18:02
== END ==
PROVIDERS: PCP Family Medicine; Referring Provider Family Medicine; Visit Provider Family Medicine
DX: M17.11 Unilateral primary osteoarthritis, right knee (principal); M11.261 Other chondrocalcinosis, right knee; M25.561 Pain in right knee; G89.29 Other chronic pain
CPT/HCPCS: 73562

== ENCOUNTER 2023-06-23 08:15 | Outpatient (RCR) | payer MEDICARE, SELFPAY ==
--- NOTE | 2023-04-27 13:45 | PT.OIE ---
Current Diagnoses Other chronic pain (04/27/23) Pain in right knee (04/27/23) Past Medical History (Last Updated 05/10/20 @ 10:55 by Chantell Garrison RN) Arthritis Depression Hypertension Visit Care Team Role Provider Type Yvan Stewart MD Attending Provider Physician Family Provider Primary Care Provider Referring Provider Specialty: Family Practice Address: [address] [place] [address], [id number] Email: [email or web address] Physical Therapy Initial Evaluation PT-OP-A Visit Information Start: 04/27/23 07:21 Freq: Status: Active Protocol: Document 04/27/23 09:40 MB (Rec: 04/27/23 10:28 MB [id number]) Out-Patient Physical Therapy Visit Information Visit Information Visit Type Initial Evaluation Visit Note 03/03 before progress note, Medicare AARP Visit Start Time 09:40 Visit Stop Time 10:25 Visit Number 1 Number of CLIENT SUCCESS DIRECTOR Visits 0 Evaluation Information Evaluation Date 04/27/23 PT-OP-B Current Condition Start: 04/27/23 07:21 Freq: Status: Active Protocol: Document 04/27/23 09:40 MB (Rec: 04/27/23 10:28 MB [id number]) Current Condition History of Current Condition Onset Date Fall or 2022 Current Complaints Pain at night behind knee, ache History of Current Condition Pt has a history of left knee pain. Her right knee started bothering her in the fall. She had a dexascan that now shows OP and she has felt some instability in her right greater than left knee. She was sleeves that help her feel more secure. At night when sleeping in bed and she turns, she has an ache in the back and outside of the right knee. It is intermittent. It's hard to rate the pain. It is unpredictable. She likes to go for walks. Sometimes it is better than others. She has recovered pretty well from her old right humeral fracture from two years ago. The whole right side seems to be problematic intermittently with right back, hip and ankle . X-ray of right knee showed degenerative changes. Pt is having trouble sleeping and it gets her up at least two nights a week. Pt's a little under a year ago. She has trouble with the steps and her right ankle doesn't move as much with desceding the steps. Treatment Goals Patient/Caregiver Goals Less pain and more stability in the right knee PT-OP-C Subjective Start: 04/27/23 07:21 Freq: Status: Active Protocol: Document 04/27/23 09:40 MB (Rec: 04/27/23 10:28 MB [id number]) OP-PT Subjective Patient Comments Patient Comments See above Patient Questionnaires Lower Extremity Functional Scale LEFS Score 52/80 LEFS Impairment 20 to 39% Impaired (Score 48- 62) PT-OP-G Mobility & Gait Start: 04/27/23 07:21 Freq: Status: Active Protocol: Document 04/27/23 09:40 MB (Rec: 04/27/23 10:28 MB [id number]) OP Gait Assessment Comments Gait Comments Gait with socks on: right foot with rigidity and step-to pattern with less movement in right ankle and some supination at the rearfoot. Pt with over pronation of left rearfoot. PT-OP-J Posture/Palpation/Skin Start: 04/27/23 07:21 Freq: Status: Active Protocol: Document 04/27/23 09:40 MB (Rec: 04/27/23 10:28 MB [id number]) Posture Evaluation Comments Posture Comments Standing posture in socks: B rounded shoulders, forward head, right thoracic convexity , right iliac crest higher than the left, B knee valgus, greater on the right and some unweighting of the right foot PT-OP-K Range of Motion Start: 04/27/23 07:21 Freq: Status: Active Protocol: Document 04/27/23 09:40 MB (Rec: 04/27/23 10:28 MB [id number]) Knee Goniometric Range of Motion Knee ROM Limitations Comments B knee degenerative presentation with lacking full zero degree end-range extension in supine, grossly 2 deg. Right knee has soft tissue tightness and fullness that is firm to touch. B AROM flexion to 124 deg. Tension area is behind the knee and also distal and pt may have a plantarflexor change. She appears to have ankle changes and does not quite reach neutral DF in right ankle in supine. Pt has two inserts in shoes that she wears. PT-OP-M Strength Start: 04/27/23 07:21 Freq: Status: Active Protocol: Document 04/27/23 09:40 MB (Rec: 04/27/23 10:28 MB [id number]) Hip Strength Hip Manual Muscle Testing Left Flexion (L2) 4+ Good+ Extension (S1) 4 Good Abduction 4 Good Right Flexion (L2) 4 Good Extension (S1) 4- Good- Abduction 4- Good- Knee Strength Knee Manual Muscle Testing Left Flexion (S2) 5 Normal Extension (L3) 5 Normal Right Flexion (S2) 4 Good Extension (L3) 4+ Good+ Ankle/Foot Strength Ankle and Foot Manual Muscle Testing Bilateral Dorsiflexion (L4) 5 Normal Toe Strength Toe Manual Muscle Testing Left Great Toe Extension 5 Normal Right Great Toe Extension 5 Normal PT-OP-Q Treatments Start: 04/27/23 07:21 Freq: Status: Active Protocol: Document 04/27/23 09:40 MB (Rec: 04/27/23 10:28 [id number]) Therapeutic Exercises Supine Exercises Pelvic realignment exercises Supine Exercise Name Peformed to improve pelvic alignment for LE symptomology and changes Reps/Minutes 5 reps, 3 sec hold all exercises Comments Feet together ball squeeze, gentle knee to opp ankle iso, knee press down i Self-Care/Home Management Treatment Education Patient Education Body Mechanics,Home Exercise Program,Joint Protection,Pain Management,Posture Other Education Ed pt in benefits of pillow between knees in sidelying and use of ice and heat. PT-OP-T Assessment and Plan Start: 04/27/23 07:21 Freq: Status: Active Protocol: Document 04/27/23 09:40 MB (Rec: 04/27/23 10:28 [id number]) Physical Therapy Assessment Rehab Potential Rehabilitation Potential Good Evaluation Complexity Number of Personal Factors/Comorbidities 1-2 Number of Body Systems Impaired 1-2 Clinical Presentation at Evaluation Evolving Impairments Impairments Activity Tolerance,Balance, Functional Activities, Functional Mobility,Gait,Pain, Posture,ROM,Soft Tissue Mobility,Strength Goals 4 Impairment Evidence of imbalance with gait Snf Goal (LTG) Pt will perform WNLs on a standardized balance test to decrease fall risk. LTG Duration 8 weeks 3 Impairment Decreased right hip and knee strength Snf Goal (LTG) Pt will present with right knee flexion and extension and hip flexion, abduction and extension strength to at lesat 4+/5 to improve function. LTG Duration 8 weeks 2 Impairment Lack of HEP Wound Care Nurse Goal (LTG) Pt will perform progressive HEP with I including pelvic realignment, posture, balance, flexibility and strengthening to improve postural, pain, range and balance. LTG Duration 8 weeks 1 Impairment LEF score is 52/80 Snf Goal (LTG) Pt will present with an improved LEF score to at least 60/80 to reflect improved knee pain and function. LTG Duration 8 weeks Assessment Summary Assessment Pt is a pleasant 68 y/o female presenting with postural changes in setting of OP and OA. She presents with scoliosis, pelvic obliquities, increased right greater than left knee valgus, rigidity right foot, and abnormal gait pattern. Pt presents with decreased right ankle movement and weakness in right hip and knee. Pt presents with increased bolus-shaped soft tissue mass density posterior right knee with part in the posterior knee joint and part over the proximal plantar flexor mass. It is possible with flexibility and myofascial work and kinesiotaping may improve this and will con't to monitor and refer back to doctor if it does not improve with PT. The posterior of her right knee is what bothers patient the most . She will benefit from PT for alignment, postural, flexibility, strengthening and balance exercises. Physical Therapy Plan Frequency and Duration Frequency of Treatment 2x/Week Duration of treatment (weeks) 8 Plan of Care Start Date 04/27/23 Plan of Care End Date 06/28/23 Therapeutic Interventions Therapeutic Interventions Balance Training,Canalithic Repositioning,Gait Training, Home Exercise Program,Joint Mobilizations,Manual Therapy, Neuromuscular Re-education, Patient/Caregiver Education, Self-Care/Home Management,Soft Tissue Mobilization,Taping, Therapeutic Activities, Therapeutic Exercises Modalities Cold Pack/Ice Massage,Electric Stimulation,Hot Packs, Ultrasound Next Visit Focus/Plan Next Note Type Treatment Note Next Visit Plan Review pelvic realignment exercises, start manual work, add hook lying hamstring and calf stretch
--- NOTE | 2023-04-27 13:45 | PT.OPPOC ---
Physical, Occupational & Speech Therapy At [facility] Current Diagnoses Other chronic pain (04/27/23) Pain in right knee (04/27/23) Visit Care Team Role Provider Type Yvan Stewart MD Attending Provider Physician Family Provider Primary Care Provider Referring Provider Specialty: Family Practice Address: [address] [place] [address], [facility] Email: [email or web address] Plan Of Care PT-OP-T Assessment and Plan Start: 04/27/23 07:21 Freq: Status: Active Protocol: Document 04/27/23 09:40 MB (Rec: 04/27/23 10:28 MB [id number]) Physical Therapy Assessment Rehab Potential Rehabilitation Potential Good Evaluation Complexity Number of Personal Factors/Comorbidities 1-2 Number of Body Systems Impaired 1-2 Clinical Presentation at Evaluation Evolving Impairments Impairments Activity Tolerance,Balance, Functional Activities, Functional Mobility,Gait,Pain, Posture,ROM,Soft Tissue Mobility,Strength Goals 4 Impairment Evidence of imbalance with gait Emergency Nurse Goal (LTG) Pt will perform WNLs on a standardized balance test to decrease fall risk. LTG Duration 8 weeks 3 Impairment Decreased right hip and knee strength Mcfp Goal (LTG) Pt will present with right knee flexion and extension and hip flexion, abduction and extension strength to at lesat 4+/5 to improve function. LTG Duration 8 weeks 2 Impairment Lack of HEP Mcfp Goal (LTG) Pt will perform progressive HEP with I including pelvic realignment, posture, balance, flexibility and strengthening to improve postural, pain, range and balance. LTG Duration 8 weeks 1 Impairment LEF score is 52/80 Mcfp Goal (LTG) Pt will present with an improved LEF score to at least 60/80 to reflect improved knee pain and function. LTG Duration 8 weeks Assessment Summary Assessment Pt is a pleasant 68 y/o female presenting with postural changes in setting of OP and OA. She presents with scoliosis, pelvic obliquities, increased right greater than left knee valgus, rigidity right foot, and abnormal gait pattern. Pt presents with decreased right ankle movement and weakness in right hip and knee. Pt presents with increased bolus-shaped soft tissue mass density posterior right knee with part in the posterior knee joint and part over the proximal plantar flexor mass. It is possible with flexibility and myofascial work and kinesiotaping may improve this and will con't to monitor and refer back to doctor if it does not improve with PT. The posterior of her right knee is what bothers patient the most . She will benefit from PT for alignment, postural, flexibility, strengthening and balance exercises. Physical Therapy Plan Frequency and Duration Frequency of Treatment 2x/Week Duration of treatment (weeks) 8 Plan of Care Start Date 04/27/23 Plan of Care End Date 06/28/23 Therapeutic Interventions Therapeutic Interventions Balance Training,Canalithic Repositioning,Gait Training, Home Exercise Program,Joint Mobilizations,Manual Therapy, Neuromuscular Re-education, Patient/Caregiver Education, Self-Care/Home Management,Soft Tissue Mobilization,Taping, Therapeutic Activities, Therapeutic Exercises Modalities Cold Pack/Ice Massage,Electric Stimulation,Hot Packs, Ultrasound Next Visit Focus/Plan Next Note Type Treatment Note Next Visit Plan Review pelvic realignment exercises, start manual work, add hook lying hamstring and calf stretch Plan of Care Dates Plan of Care Start Date 04/27/23 Plan of Care End Date 06/28/23 Electronically Signed by: Darcie Wagner, PT 04/27/23 1557 If you are in agreement with this Plan of Care, please return a signed and dated copy. I have reviewed this Plan of Care and certify that the skilled therapy services above are required to meet the patient?s needs. Physician Signature Date Printed Name and Credentials Clinical Instructor Signature Printed Name and Credentials
--- NOTE | 2023-04-28 15:55 | PT.OTN ---
Current Diagnoses Other chronic pain (04/28/23) Pain in right knee (04/28/23) Physical Therapy Treatment Note PT-OP-A Visit Information Start: 04/27/23 07:21 Freq: Status: Active Protocol: Document 04/28/23 15:15 MB (Rec: 04/28/23 15:55 MB [id number]) Out-Patient Physical Therapy Visit Information Visit Information Visit Type Treatment Note Visit Note 04/03 before progress note Visit Start Time 15:15 Visit Stop Time 15:55 Visit Number 2 Number of BIOINFORMATICS RESEARCH TECHNICIAN Visits 0 PT-OP-B Current Condition Start: 04/27/23 07:21 Freq: Status: Active Protocol: Document 04/27/23 09:40 MB (Rec: 04/27/23 10:28 MB [id number]) Current Condition History of Current Condition Onset Date Fall or 2022 Current Complaints Pain at night behind knee, ache History of Current Condition Pt has a history of left knee pain. Her right knee started bothering her in the fall. She had a dexascan that now shows OP and she has felt some instability in her right greater than left knee. She was sleeves that help her feel more secure. At night when sleeping in bed and she turns, she has an ache in the back and outside of the right knee. It is intermittent. It's hard to rate the pain. It is unpredictable. She likes to go for walks. Sometimes it is better than others. She has recovered pretty well from her old right humeral fracture from two years ago. The whole right side seems to be problematic intermittently with right back, hip and ankle . X-ray of right knee showed degenerative changes. Pt is having trouble sleeping and it gets her up at least two nights a week. Pt's a little under a year ago. She has trouble with the steps and her right ankle doesn't move as much with desceding the steps. Treatment Goals Patient/Caregiver Goals Less pain and more stability in the right knee PT-OP-C Subjective Start: 04/27/23 07:21 Freq: Status: Active Protocol: Document 04/28/23 15:15 MB (Rec: 04/28/23 15:55 MB [id number]) OP-PT Subjective Patient Comments Patient Comments Pt states that her left knee woke her up this morning. PT-OP-G Mobility & Gait Start: 04/27/23 07:21 Freq: Status: Active Protocol: Document 04/27/23 09:40 MB (Rec: 04/27/23 10:28 MB [id number]) OP Gait Assessment Comments Gait Comments Gait with socks on: right foot with rigidity and step-to pattern with less movement in right ankle and some supination at the rearfoot. Pt with over pronation of left rearfoot. PT-OP-J Posture/Palpation/Skin Start: 04/27/23 07:21 Freq: Status: Active Protocol: Document 04/27/23 09:40 MB (Rec: 04/27/23 10:28 MB [id number]) Posture Evaluation Comments Posture Comments Standing posture in socks: B rounded shoulders, forward head, right thoracic convexity , right iliac crest higher than the left, B knee valgus, greater on the right and some unweighting of the right foot PT-OP-K Range of Motion Start: 04/27/23 07:21 Freq: Status: Active Protocol: Document 04/27/23 09:40 MB (Rec: 04/27/23 10:28 MB [id number]) Knee Goniometric Range of Motion Knee ROM Limitations Comments B knee degenerative presentation with lacking full zero degree end-range extension in supine, grossly 2 deg. Right knee has soft tissue tightness and fullness that is firm to touch. B AROM flexion to 124 deg. Tension area is behind the knee and also distal and pt may have a plantarflexor change. She appears to have ankle changes and does not quite reach neutral DF in right ankle in supine. Pt has two inserts in shoes that she wears. PT-OP-M Strength Start: 04/27/23 07:21 Freq: Status: Active Protocol: Document 04/27/23 09:40 MB (Rec: 04/27/23 10:28 MB [id number]) Hip Strength Hip Manual Muscle Testing Left Flexion (L2) 4+ Good+ Extension (S1) 4 Good Abduction 4 Good Right Flexion (L2) 4 Good Extension (S1) 4- Good- Abduction 4- Good- Knee Strength Knee Manual Muscle Testing Left Flexion (S2) 5 Normal Extension (L3) 5 Normal Right Flexion (S2) 4 Good Extension (L3) 4+ Good+ Ankle/Foot Strength Ankle and Foot Manual Muscle Testing Bilateral Dorsiflexion (L4) 5 Normal Toe Strength Toe Manual Muscle Testing Left Great Toe Extension 5 Normal Right Great Toe Extension 5 Normal PT-OP-Q Treatments Start: 04/27/23 07:21 Freq: Status: Active Protocol: Document 04/28/23 15:15 MB (Rec: 04/28/23 15:55 MB [id number]) Therapeutic Exercises Supine Exercises Hamstring stretch with AP Supine Exercise Name Also performed TFL/ITB stretch with leg moved medially and add with leg out Side bilateral Equipment Used Hands behind knee or gait belt under foot Reps/Minutes 45 sec, 30 APs Pelvic realignment exercises Supine Exercise Name Peformed to improve pelvic alignment for LE symptomology and changes Reps/Minutes 5 reps, 3 sec hold all exercises Comments Feet together ball squeeze, gentle knee to opp ankle iso, knee press down i Manual Therapy Treatment Other Other Manual Treatments Pt supine with head and LEs supported: STM and positional release right quads, TFL, hamstring, gastroc and MWM with TrP pressure PFs and pt performing active DF and PF, left hamstring and PF STM PT-OP-T Assessment and Plan Start: 04/27/23 07:21 Freq: Status: Active Protocol: Document 04/28/23 15:15 MB (Rec: 04/28/23 15:55 MB [id number]) Physical Therapy Assessment Rehab Potential Rehabilitation Potential Good Evaluation Complexity Number of Personal Factors/Comorbidities 1-2 Number of Body Systems Impaired 1-2 Clinical Presentation at Evaluation Evolving Impairments Impairments Activity Tolerance,Balance, Functional Activities, Functional Mobility,Gait,Pain, Posture,ROM,Soft Tissue Mobility,Strength Goals 4 Impairment Evidence of imbalance with gait Half-Way Goal (LTG) Pt will perform WNLs on a standardized balance test to decrease fall risk. LTG Duration 8 weeks 3 Impairment Decreased right hip and knee strength Half-Way Goal (LTG) Pt will present with right knee flexion and extension and hip flexion, abduction and extension strength to at lesat 4+/5 to improve function. LTG Duration 8 weeks 2 Impairment Lack of HEP Half-Way Goal (LTG) Pt will perform progressive HEP with I including pelvic realignment, posture, balance, flexibility and strengthening to improve postural, pain, range and balance. LTG Duration 8 weeks 1 Impairment LEF score is 52/80 Half-Way Goal (LTG) Pt will present with an improved LEF score to at least 60/80 to reflect improved knee pain and function. LTG Duration 8 weeks Assessment Summary Assessment Reviewed pelvic realignment exercises and added flexibility today. Pt performs well. Also manual work. The tension behind pt's right knee is much better today and it feels like a large cyst posterior knee. Physical Therapy Plan Frequency and Duration Frequency of Treatment 2x/Week Duration of treatment (weeks) 8 Plan of Care Start Date 04/27/23 Plan of Care End Date 06/28/23 Therapeutic Interventions Therapeutic Interventions Balance Training,Canalithic Repositioning,Gait Training, Home Exercise Program,Joint Mobilizations,Manual Therapy, Neuromuscular Re-education, Patient/Caregiver Education, Self-Care/Home Management,Soft Tissue Mobilization,Taping, Therapeutic Activities, Therapeutic Exercises Modalities Cold Pack/Ice Massage,Electric Stimulation,Hot Packs, Ultrasound Next Visit Focus/Plan Next Note Type Treatment Note Next Visit Plan Review exercises and ongoing manual work, consider KT to take tension off posterior right knee
--- NOTE | 2023-05-04 09:00 | PT.OTN ---
Current Diagnoses Other chronic pain (05/04/23) Pain in right knee (05/04/23) Physical Therapy Treatment Note PT-OP-A Visit Information Start: 04/27/23 07:21 Freq: Status: Active Protocol: Document 05/04/23 08:17 MB (Rec: 05/04/23 08:55 MB [id number]) Out-Patient Physical Therapy Visit Information Visit Information Visit Type Treatment Note Visit Note 05/01 before progress note Visit Start Time 08:17 Visit Stop Time 08:57 Visit Number 3 Number of PUBLIC RELATIONS SPECIALIST Visits 0 Precautions Precautions Please do not add more than 1- 2 exercises per session to monitor response, what works for pt and what does not PT-OP-B Current Condition Start: 04/27/23 07:21 Freq: Status: Active Protocol: Document 04/27/23 09:40 MB (Rec: 04/27/23 10:28 MB [id number]) Current Condition History of Current Condition Onset Date Fall or 2022 Current Complaints Pain at night behind knee, ache History of Current Condition Pt has a history of left knee pain. Her right knee started bothering her in the fall. She had a dexascan that now shows OP and she has felt some instability in her right greater than left knee. She was sleeves that help her feel more secure. At night when sleeping in bed and she turns, she has an ache in the back and outside of the right knee. It is intermittent. It's hard to rate the pain. It is unpredictable. She likes to go for walks. Sometimes it is better than others. She has recovered pretty well from her old right humeral fracture from two years ago. The whole right side seems to be problematic intermittently with right back, hip and ankle . X-ray of right knee showed degenerative changes. Pt is having trouble sleeping and it gets her up at least two nights a week. Pt's a little under a year ago. She has trouble with the steps and her right ankle doesn't move as much with desceding the steps. Treatment Goals Patient/Caregiver Goals Less pain and more stability in the right knee PT-OP-C Subjective Start: 04/27/23 07:21 Freq: Status: Active Protocol: Document 05/04/23 08:17 MB (Rec: 05/04/23 08:55 MB [id number]) OP-PT Subjective Patient Comments Patient Comments Pt states that she thinks with the stretch, the back of the knee doesn't feel as tight. She did a lot of gardening yesterday and used a pad to kneel on and it didn't bother her knees. PT-OP-G Mobility & Gait Start: 04/27/23 07:21 Freq: Status: Active Protocol: Document 04/27/23 09:40 MB (Rec: 04/27/23 10:28 MB [id number]) OP Gait Assessment Comments Gait Comments Gait with socks on: right foot with rigidity and step-to pattern with less movement in right ankle and some supination at the rearfoot. Pt with over pronation of left rearfoot. PT-OP-J Posture/Palpation/Skin Start: 04/27/23 07:21 Freq: Status: Active Protocol: Document 04/27/23 09:40 MB (Rec: 04/27/23 10:28 MB [id number]) Posture Evaluation Comments Posture Comments Standing posture in socks: B rounded shoulders, forward head, right thoracic convexity , right iliac crest higher than the left, B knee valgus, greater on the right and some unweighting of the right foot PT-OP-K Range of Motion Start: 04/27/23 07:21 Freq: Status: Active Protocol: Document 04/27/23 09:40 MB (Rec: 04/27/23 10:28 MB [id number]) Knee Goniometric Range of Motion Knee ROM Limitations Comments B knee degenerative presentation with lacking full zero degree end-range extension in supine, grossly 2 deg. Right knee has soft tissue tightness and fullness that is firm to touch. B AROM flexion to 124 deg. Tension area is behind the knee and also distal and pt may have a plantarflexor change. She appears to have ankle changes and does not quite reach neutral DF in right ankle in supine. Pt has two inserts in shoes that she wears. PT-OP-M Strength Start: 04/27/23 07:21 Freq: Status: Active Protocol: Document 04/27/23 09:40 MB (Rec: 04/27/23 10:28 MB [id number]) Hip Strength Hip Manual Muscle Testing Left Flexion (L2) 4+ Good+ Extension (S1) 4 Good Abduction 4 Good Right Flexion (L2) 4 Good Extension (S1) 4- Good- Abduction 4- Good- Knee Strength Knee Manual Muscle Testing Left Flexion (S2) 5 Normal Extension (L3) 5 Normal Right Flexion (S2) 4 Good Extension (L3) 4+ Good+ Ankle/Foot Strength Ankle and Foot Manual Muscle Testing Bilateral Dorsiflexion (L4) 5 Normal Toe Strength Toe Manual Muscle Testing Left Great Toe Extension 5 Normal Right Great Toe Extension 5 Normal PT-OP-Q Treatments Start: 04/27/23 07:21 Freq: Status: Active Protocol: Document 05/04/23 08:17 MB (Rec: 05/04/23 08:55 MB [id number]) Cardio Equipment Bicycle (Upright) Duration (Minutes) 10 Resistance 1-5 Seat Position 8 Other Cues to position right foot on pedal, cues for knee out Therapeutic Exercises Supine Exercises Hamstring stretch with AP Supine Exercise Name Also performed TFL/ITB stretch with leg moved medially and add with leg out Side bilateral Equipment Used Hands behind knee or gait belt under foot Reps/Minutes 45 sec, 30 APs Standing Exercises Gastroc and soleus stretches Reps/Minutes 30-45 sec hold for stretch and then AROM toe raises Comments Standing with calf behind and finish up with toe raises in standing Manual Therapy Treatment Other Other Manual Treatments KT to support right knee with c strip under patella and medial and lateral I strips from tibial plateau up sides of knee, black KT STM with pt in hook lying: right quads, TFl, hamstring, gastroc, MWM with TrP pressure gastroc and pt actively pumping foot. Pt con't with large Jeffries's cyst feeling area PT-OP-T Assessment and Plan Start: 04/27/23 07:21 Freq: Status: Active Protocol: Document 05/04/23 08:17 MB (Rec: 05/04/23 08:55 MB [id number]) Physical Therapy Assessment Rehab Potential Rehabilitation Potential Good Evaluation Complexity Number of Personal Factors/Comorbidities 1-2 Number of Body Systems Impaired 1-2 Clinical Presentation at Evaluation Evolving Impairments Impairments Activity Tolerance,Balance, Functional Activities, Functional Mobility,Gait,Pain, Posture,ROM,Soft Tissue Mobility,Strength Goals 4 Impairment Evidence of imbalance with gait Jewel Blocker And Sawyer Goal (LTG) Pt will perform WNLs on a standardized balance test to decrease fall risk. LTG Duration 8 weeks 3 Impairment Decreased right hip and knee strength Jew[employer] Blocker And Sawyer Goal (LTG) Pt will present with right knee flexion and extension and hip flexion, abduction and extension strength to at lesat 4+/5 to improve function. LTG Duration 8 weeks 2 Impairment Lack of HEP Jewel Blocker And Sawyer Goal (LTG) Pt will perform progressive HEP with I including pelvic realignment, posture, balance, flexibility and strengthening to improve postural, pain, range and balance. LTG Duration 8 weeks 1 Impairment LEF score is 52/80 Jew[employer] Blocker And Sawyer Goal (LTG) Pt will present with an improved LEF score to at least 60/80 to reflect improved knee pain and function. LTG Duration 8 weeks Assessment Summary Assessment Initiated upright bike today and KT and monitor response. Pt wears sturdy sandals in the house and is not walking barefoot. Physical Therapy Plan Frequency and Duration Frequency of Treatment 2x/Week Duration of treatment (weeks) 8 Plan of Care Start Date 04/27/23 Plan of Care End Date 06/28/23 Therapeutic Interventions Therapeutic Interventions Balance Training,Canalithic Repositioning,Gait Training, Home Exercise Program,Joint Mobilizations,Manual Therapy, Neuromuscular Re-education, Patient/Caregiver Education, Self-Care/Home Management,Soft Tissue Mobilization,Taping, Therapeutic Activities, Therapeutic Exercises Modalities Cold Pack/Ice Massage,Electric Stimulation,Hot Packs, Ultrasound Next Visit Focus/Plan Next Note Type Treatment Note Next Visit Plan Con't manual work and exercise progression, review standing calf stretch, consider piriformis stretch and then gentle abdominal strengthening in hook lying and hip strengthening with clam and bridge with band in hook lying , progess balance exercises in standing/hip strengthening in standing, also ankle strengthening in sitting, PF MWM with racquet ball
--- NOTE | 2023-05-10 14:15 | PT.OTN ---
Addendum entered and electronically signed by Marixa Hills 06/09/23 08:37: Documentation error, KT tape not applied this session. Original Note: Current Diagnoses Other chronic pain (05/10/23) Pain in right knee (05/10/23) Physical Therapy Treatment Note PT-OP-A Visit Information Start: 04/27/23 07:21 Freq: Status: Active Protocol: Document 05/10/23 08:24 AB (Rec: 05/10/23 09:46 AB [id number]) Out-Patient Physical Therapy Visit Information Visit Information Visit Type Treatment Note Visit Note 06/01 before progress note Visit Start Time 08:57 Visit Stop Time 09:44 Visit Number 4 Number of SUPERVISOR REFINING Visits 1 Precautions Precautions Please do not add more than 1- 2 exercises per session to monitor response, what works for pt and what does not PT-OP-B Current Condition Start: 04/27/23 07:21 Freq: Status: Active Protocol: Document 04/27/23 09:40 MB (Rec: 04/27/23 10:28 MB [id number]) Current Condition History of Current Condition Onset Date Fall or 2022 Current Complaints Pain at night behind knee, ache History of Current Condition Pt has a history of left knee pain. Her right knee started bothering her in the fall. She had a dexascan that now shows OP and she has felt some instability in her right greater than left knee. She was sleeves that help her feel more secure. At night when sleeping in bed and she turns, she has an ache in the back and outside of the right knee. It is intermittent. It's hard to rate the pain. It is unpredictable. She likes to go for walks. Sometimes it is better than others. She has recovered pretty well from her old right humeral fracture from two years ago. The whole right side seems to be problematic intermittently with right back, hip and ankle . X-ray of right knee showed degenerative changes. Pt is having trouble sleeping and it gets her up at least two nights a week. Pt's a little under a year ago. She has trouble with the steps and her right ankle doesn't move as much with desceding the steps. Treatment Goals Patient/Caregiver Goals Less pain and more stability in the right knee PT-OP-C Subjective Start: 04/27/23 07:21 Freq: Status: Active Protocol: Document 05/10/23 08:24 AB (Rec: 05/10/23 09:46 AB [id number]) OP-PT Subjective Patient Comments Patient Comments Patient reports she is a little better, the legs are more comfortable at night. Patient reports the soleus stretch is painful, so she isn 't doing it, comments the sensation of knee feeling like it is going to give way descending stairs persists. Patient reports the tape came off the same day within hours. Observed sit to stand with Quad dom pattern, one UE use PT-OP-G Mobility & Gait Start: 04/27/23 07:21 Freq: Status: Active Protocol: Document 04/27/23 09:40 MB (Rec: 04/27/23 10:28 MB [id number]) OP Gait Assessment Comments Gait Comments Gait with socks on: right foot with rigidity and step-to pattern with less movement in right ankle and some supination at the rearfoot. Pt with over pronation of left rearfoot. PT-OP-J Posture/Palpation/Skin Start: 04/27/23 07:21 Freq: Status: Active Protocol: Document 04/27/23 09:40 MB (Rec: 04/27/23 10:28 MB [id number]) Posture Evaluation Comments Posture Comments Standing posture in socks: B rounded shoulders, forward head, right thoracic convexity , right iliac crest higher than the left, B knee valgus, greater on the right and some unweighting of the right foot PT-OP-K Range of Motion Start: 04/27/23 07:21 Freq: Status: Active Protocol: Document 04/27/23 09:40 MB (Rec: 04/27/23 10:28 MB [id number]) Knee Goniometric Range of Motion Knee ROM Limitations Comments B knee degenerative presentation with lacking full zero degree end-range extension in supine, grossly 2 deg. Right knee has soft tissue tightness and fullness that is firm to touch. B AROM flexion to 124 deg. Tension area is behind the knee and also distal and pt may have a plantarflexor change. She appears to have ankle changes and does not quite reach neutral DF in right ankle in supine. Pt has two inserts in shoes that she wears. PT-OP-M Strength Start: 04/27/23 07:21 Freq: Status: Active Protocol: Document 04/27/23 09:40 MB (Rec: 04/27/23 10:28 MB [id number]) Hip Strength Hip Manual Muscle Testing Left Flexion (L2) 4+ Good+ Extension (S1) 4 Good Abduction 4 Good Right Flexion (L2) 4 Good Extension (S1) 4- Good- Abduction 4- Good- Knee Strength Knee Manual Muscle Testing Left Flexion (S2) 5 Normal Extension (L3) 5 Normal Right Flexion (S2) 4 Good Extension (L3) 4+ Good+ Ankle/Foot Strength Ankle and Foot Manual Muscle Testing Bilateral Dorsiflexion (L4) 5 Normal Toe Strength Toe Manual Muscle Testing Left Great Toe Extension 5 Normal Right Great Toe Extension 5 Normal PT-OP-Q Treatments Start: 04/27/23 07:21 Freq: Status: Active Protocol: Document 05/10/23 08:24 AB (Rec: 05/10/23 09:46 AB [id number]) Therapeutic Exercises Supine Exercises hooklying hip abduction with band Side bilateral Resistance level one light blue band Reps/Minutes X10 without hold and 1 one min hold Comments verbal cues Hamstring stretch with AP Supine Exercise Name hamstring only this session Side bilateral Equipment Used with strap Reps/Minutes 45 sec, 30 APs X2 Pelvic realignment exercises Supine Exercise Name Peformed to improve pelvic alignment for LE symptomology and changes Reps/Minutes 5 reps, 3 sec hold all exercises Comments Feet together ball squeeze, gentle knee to opp ankle iso, knee press down i Standing Exercises step up step back Standing Exercise Name with UE support Side right Resistance 6 inch step Reps/Minutes X10 Comments Verbal cues Gastroc and soleus stretches Standing Exercise Name trial of stair stretch for soleus reported not feeling much, HEP stretch* Side bilateral Equipment Used * for reps below Reps/Minutes X2 each exercise each LE 45 sec holdd Comments Verbal cues to keep heel on floor, Therapeutic Activity Therapeutic Activity stair training Name 4 6 inch steps X 1 Comments Verbal cues for UE position on rail and to face forward to dec quad dominant pattern, monitored for pain Manual Therapy Treatment Soft Tissue Mobilization STM to right quad, hamstring, calf muscles Mobilization Type Cross-Friction,Rolling Intensity/Depth Moderate Body Position Hooklying Comments monittored for pain Other Other Manual Treatments KT to support right knee with c strip under patella and medial and lateral I strips from tibial plateau up sides of knee, black KT STM with pt in hook lying: right quads, TFl, hamstring, gastroc, MWM with TrP pressure gastroc and pt actively pumping foot. Pt con't with large Jeffries's cyst feeling area PT-OP-T Assessment and Plan Start: 04/27/23 07:21 Freq: Status: Active Protocol: Document 05/10/23 08:24 AB (Rec: 05/10/23 09:46 AB [id number]) Physical Therapy Assessment Goals 4 Impairment Evidence of imbalance with gait Crime Scene Technician Goal (LTG) Pt will perform WNLs on a standardized balance test to decrease fall risk. LTG Duration 8 weeks 3 Impairment Decreased right hip and knee strength Crime Scene Technician Goal (LTG) Pt will present with right knee flexion and extension and hip flexion, abduction and extension strength to at lesat 4+/5 to improve function. LTG Duration 8 weeks 2 Impairment Lack of HEP Crime Scene Technician Goal (LTG) Pt will perform progressive HEP with I including pelvic realignment, posture, balance, flexibility and strengthening to improve postural, pain, range and balance. LTG Duration 8 weeks 1 Impairment LEF score is 52/80 Residential Goal (LTG) Pt will present with an improved LEF score to at least 60/80 to reflect improved knee pain and function. LTG Duration 8 weeks Assessment Summary Assessment Patient reports a little pain right knee descending stairs with UE use, facing fwd, less quad dominant pattern Physical Therapy Plan Frequency and Duration Frequency of Treatment 2x/Week Duration of treatment (weeks) 8 Plan of Care Start Date 04/27/23 Plan of Care End Date 06/28/23 Next Visit Focus/Plan Next Note Type Treatment Note Next Visit Plan Con't manual work and exercise progression, review standing calf stretch, consider piriformis stretch and then gentle abdominal strengthening in hook lying and hip strengthening with clam and bridge with band in hook lying , progess balance exercises in standing/hip strengthening in standing, also ankle strengthening in sitting, PF MWM with racquet ball, assess armando to hooklying hip abduction with band performed in clinic last session ( not added to HEP )
--- NOTE | 2023-05-12 09:01 | PT.OTN ---
Current Diagnoses Other chronic pain (05/12/23) Pain in right knee (05/12/23) Physical Therapy Treatment Note PT-OP-A Visit Information Start: 04/27/23 07:21 Freq: Status: Active Protocol: Document 05/12/23 08:10 MB (Rec: 05/12/23 08:56 MB [id number]) Out-Patient Physical Therapy Visit Information Visit Information Visit Type Treatment Note Visit Note 07/01 before prog note 07/10 before KX Visit Start Time 08:15 Visit Stop Time 08:55 Visit Number 5 Number of MEDICAL OFFICE PROFESSIONAL INSTRUCTOR Visits 0 Precautions Precautions Please do not add more than 1- 2 exercises per session to monitor response, what works for pt and what does not PT-OP-B Current Condition Start: 04/27/23 07:21 Freq: Status: Active Protocol: Document 04/27/23 09:40 MB (Rec: 04/27/23 10:28 MB [id number]) Current Condition History of Current Condition Onset Date Fall or 2022 Current Complaints Pain at night behind knee, ache History of Current Condition Pt has a history of left knee pain. Her right knee started bothering her in the fall. She had a dexascan that now shows OP and she has felt some instability in her right greater than left knee. She was sleeves that help her feel more secure. At night when sleeping in bed and she turns, she has an ache in the back and outside of the right knee. It is intermittent. It's hard to rate the pain. It is unpredictable. She likes to go for walks. Sometimes it is better than others. She has recovered pretty well from her old right humeral fracture from two years ago. The whole right side seems to be problematic intermittently with right back, hip and ankle . X-ray of right knee showed degenerative changes. Pt is having trouble sleeping and it gets her up at least two nights a week. Pt's a little under a year ago. She has trouble with the steps and her right ankle doesn't move as much with desceding the steps. Treatment Goals Patient/Caregiver Goals Less pain and more stability in the right knee PT-OP-C Subjective Start: 04/27/23 07:21 Freq: Status: Active Protocol: Document 05/12/23 08:10 MB (Rec: 05/12/23 08:56 MB [id number]) OP-PT Subjective Patient Comments Patient Comments Pt states that the tape did not stay on for more than several hours. Though she had pain during stair exercises last treatment, she did not have pain the next day. She is doing the calf stretch correctly now that the therapist reviewed it last treatment. PT-OP-G Mobility & Gait Start: 04/27/23 07:21 Freq: Status: Active Protocol: Document 04/27/23 09:40 MB (Rec: 04/27/23 10:28 MB [id number]) OP Gait Assessment Comments Gait Comments Gait with socks on: right foot with rigidity and step-to pattern with less movement in right ankle and some supination at the rearfoot. Pt with over pronation of left rearfoot. PT-OP-J Posture/Palpation/Skin Start: 04/27/23 07:21 Freq: Status: Active Protocol: Document 04/27/23 09:40 MB (Rec: 04/27/23 10:28 MB [id number]) Posture Evaluation Comments Posture Comments Standing posture in socks: B rounded shoulders, forward head, right thoracic convexity , right iliac crest higher than the left, B knee valgus, greater on the right and some unweighting of the right foot PT-OP-K Range of Motion Start: 04/27/23 07:21 Freq: Status: Active Protocol: Document 04/27/23 09:40 MB (Rec: 04/27/23 10:28 MB [id number]) Knee Goniometric Range of Motion Knee ROM Limitations Comments B knee degenerative presentation with lacking full zero degree end-range extension in supine, grossly 2 deg. Right knee has soft tissue tightness and fullness that is firm to touch. B AROM flexion to 124 deg. Tension area is behind the knee and also distal and pt may have a plantarflexor change. She appears to have ankle changes and does not quite reach neutral DF in right ankle in supine. Pt has two inserts in shoes that she wears. PT-OP-M Strength Start: 04/27/23 07:21 Freq: Status: Active Protocol: Document 04/27/23 09:40 MB (Rec: 04/27/23 10:28 MB [id number]) Hip Strength Hip Manual Muscle Testing Left Flexion (L2) 4+ Good+ Extension (S1) 4 Good Abduction 4 Good Right Flexion (L2) 4 Good Extension (S1) 4- Good- Abduction 4- Good- Knee Strength Knee Manual Muscle Testing Left Flexion (S2) 5 Normal Extension (L3) 5 Normal Right Flexion (S2) 4 Good Extension (L3) 4+ Good+ Ankle/Foot Strength Ankle and Foot Manual Muscle Testing Bilateral Dorsiflexion (L4) 5 Normal Toe Strength Toe Manual Muscle Testing Left Great Toe Extension 5 Normal Right Great Toe Extension 5 Normal PT-OP-Q Treatments Start: 04/27/23 07:21 Freq: Status: Active Protocol: Document 05/12/23 08:10 MB (Rec: 05/12/23 08:56 MB [id number]) Cardio Equipment Recumbent Elliptical ([place]) Duration (Minutes) 10 Resistance 4 Therapeutic Exercises Supine Exercises hooklying hip abduction with band Side bilateral Resistance level one light blue band Reps/Minutes 10 Comments Cues for pelvic tilt and glute squeeze, slow in and slow out Standing Exercises Gastroc and soleus stretches Standing Exercise Name Standing at wall Side bilateral Reps/Minutes 30-45 sec hold for stretch and then AROM toe raises Comments Standing, knee flexed and then extended Gait Training Gait Activity Gait training in hallway to observe gait pattern Comments Pt wears [place] and has two custom inserts inside and she was on lateral side of right foot and left leg has increased knee valgus and left foot out to the side and she has a stiff gait with wide ES and decreased step-length and reciprocal gait pattern; pt has better step-through gait without inserts in. Pt con't to state that she wears the inserts with all shoes including Keen sandals and PT ed pt that inserts may work the best in shoes that are not as rigid: Keens are less rigid that Hokas Manual Therapy Treatment Other Other Manual Treatments Pt hook lying and head and legs supported: STM and positional release vastus lateralis, hamstrings, gastroc and increased stiffness today PT-OP-T Assessment and Plan Start: 04/27/23 07:21 Freq: Status: Active Protocol: Document 05/12/23 08:10 MB (Rec: 05/12/23 08:56 MB [id number]) Physical Therapy Assessment Rehab Potential Rehabilitation Potential Good Evaluation Complexity Number of Personal Factors/Comorbidities 1-2 Number of Body Systems Impaired 1-2 Clinical Presentation at Evaluation Evolving Impairments Impairments Activity Tolerance,Balance, Functional Activities, Functional Mobility,Gait,Pain, Posture,ROM,Soft Tissue Mobility,Strength Goals 4 Impairment Evidence of imbalance with gait [employer] Goal (LTG) Pt will perform WNLs on a standardized balance test to decrease fall risk. LTG Duration 8 weeks 3 Impairment Decreased right hip and knee strength [facility] Goal (LTG) Pt will present with right knee flexion and extension and hip flexion, abduction and extension strength to at lesat 4+/5 to improve function. LTG Duration 8 weeks 2 Impairment Lack of HEP [employer] Goal (LTG) Pt will perform progressive HEP with I including pelvic realignment, posture, balance, flexibility and strengthening to improve postural, pain, range and balance. LTG Duration 8 weeks 1 Impairment LEF score is 52/80 [employer] Goal (LTG) Pt will present with an improved LEF score to at least 60/80 to reflect improved knee pain and function. LTG Duration 8 weeks Assessment Summary Assessment Pt will trial not wearing orthotics in [facility] and this may be a big change for her and so ed pt to only perform to tolerance and as a trial. Will hold off on taping at this time and revisit if needed. Doing well with hook lying hip abduction. Con't PT per POC. Right knee con't with very large and firm Jeffries's cyst like presentation and this affects fascial, bone, muscle mobility, range, strength and body mechanics. Physical Therapy Plan Frequency and Duration Frequency of Treatment 2x/Week Duration of treatment (weeks) 8 Plan of Care Start Date 04/27/23 Plan of Care End Date 06/28/23 Therapeutic Interventions Therapeutic Interventions Balance Training,Canalithic Repositioning,Gait Training, Home Exercise Program,Joint Mobilizations,Manual Therapy, Neuromuscular Re-education, Patient/Caregiver Education, Self-Care/Home Management,Soft Tissue Mobilization,Taping, Therapeutic Activities, Therapeutic Exercises Modalities Cold Pack/Ice Massage,Electric Stimulation,Hot Packs, Ultrasound Next Visit Focus/Plan Next Note Type Treatment Note Next Visit Plan Over several treatments: Con't manual work and exercise progression, consider piriformis stretch and then gentle abdominal strengthening in hook lying, progress balance exercises in standing and gentle hip strengthening in standing including extension, abduction and if knee tolerates, mini wall slides with band around knees and also consider ankle DF and eversion strengthening exercise with band around ankles in sitting. Pt has a body blade and may do well with standing balance and core work using body blade. If closed chain knee strengtening in standing is too much, can try LAQ or even LAQ with band around knees to engage glutes while extending legs
--- NOTE | 2023-05-17 11:05 | PT.OTN ---
Current Diagnoses Other chronic pain (05/17/23) Pain in right knee (05/17/23) Physical Therapy Treatment Note PT-OP-A Visit Information Start: 04/27/23 07:21 Freq: Status: Active Protocol: Document 05/17/23 08:05 AB (Rec: 05/17/23 09:22 AB [id number]) Out-Patient Physical Therapy Visit Information Visit Information Visit Type Treatment Note Visit Note 08/01 before prog note 08/10 before KX Visit Start Time 08:17 Visit Stop Time 08:59 Visit Number 6 Number of LUNCH TRUCK OPERATOR Visits 1 Precautions Precautions Please do not add more than 1- 2 exercises per session to monitor response, what works for pt and what does not PT-OP-B Current Condition Start: 04/27/23 07:21 Freq: Status: Active Protocol: Document 04/27/23 09:40 MB (Rec: 04/27/23 10:28 MB [id number]) Current Condition History of Current Condition Onset Date Fall or 2022 Current Complaints Pain at night behind knee, ache History of Current Condition Pt has a history of left knee pain. Her right knee started bothering her in the fall. She had a dexascan that now shows OP and she has felt some instability in her right greater than left knee. She was sleeves that help her feel more secure. At night when sleeping in bed and she turns, she has an ache in the back and outside of the right knee. It is intermittent. It's hard to rate the pain. It is unpredictable. She likes to go for walks. Sometimes it is better than others. She has recovered pretty well from her old right humeral fracture from two years ago. The whole right side seems to be problematic intermittently with right back, hip and ankle . X-ray of right knee showed degenerative changes. Pt is having trouble sleeping and it gets her up at least two nights a week. Pt's a little under a year ago. She has trouble with the steps and her right ankle doesn't move as much with desceding the steps. Treatment Goals Patient/Caregiver Goals Less pain and more stability in the right knee PT-OP-C Subjective Start: 04/27/23 07:21 Freq: Status: Active Protocol: Document 05/17/23 08:05 AB (Rec: 05/17/23 09:22 AB [id number]) OP-PT Subjective Patient Comments Patient Comments Patient reports she was fine post previous session. Magi comments not using inserts is not working, comments she left them out and the knee didn't feel secure and comfortable (mostly not secure ) PT-OP-G Mobility & Gait Start: 04/27/23 07:21 Freq: Status: Active Protocol: Document 04/27/23 09:40 MB (Rec: 04/27/23 10:28 MB [id number]) OP Gait Assessment Comments Gait Comments Gait with socks on: right foot with rigidity and step-to pattern with less movement in right ankle and some supination at the rearfoot. Pt with over pronation of left rearfoot. PT-OP-J Posture/Palpation/Skin Start: 04/27/23 07:21 Freq: Status: Active Protocol: Document 04/27/23 09:40 MB (Rec: 04/27/23 10:28 MB [id number]) Posture Evaluation Comments Posture Comments Standing posture in socks: B rounded shoulders, forward head, right thoracic convexity , right iliac crest higher than the left, B knee valgus, greater on the right and some unweighting of the right foot PT-OP-K Range of Motion Start: 04/27/23 07:21 Freq: Status: Active Protocol: Document 04/27/23 09:40 MB (Rec: 04/27/23 10:28 MB [id number]) Knee Goniometric Range of Motion Knee ROM Limitations Comments B knee degenerative presentation with lacking full zero degree end-range extension in supine, grossly 2 deg. Right knee has soft tissue tightness and fullness that is firm to touch. B AROM flexion to 124 deg. Tension area is behind the knee and also distal and pt may have a plantarflexor change. She appears to have ankle changes and does not quite reach neutral DF in right ankle in supine. Pt has two inserts in shoes that she wears. PT-OP-M Strength Start: 04/27/23 07:21 Freq: Status: Active Protocol: Document 04/27/23 09:40 MB (Rec: 04/27/23 10:28 MB [id number]) Hip Strength Hip Manual Muscle Testing Left Flexion (L2) 4+ Good+ Extension (S1) 4 Good Abduction 4 Good Right Flexion (L2) 4 Good Extension (S1) 4- Good- Abduction 4- Good- Knee Strength Knee Manual Muscle Testing Left Flexion (S2) 5 Normal Extension (L3) 5 Normal Right Flexion (S2) 4 Good Extension (L3) 4+ Good+ Ankle/Foot Strength Ankle and Foot Manual Muscle Testing Bilateral Dorsiflexion (L4) 5 Normal Toe Strength Toe Manual Muscle Testing Left Great Toe Extension 5 Normal Right Great Toe Extension 5 Normal PT-OP-Q Treatments Start: 04/27/23 07:21 Freq: Status: Active Protocol: Document 05/17/23 08:05 AB (Rec: 05/17/23 09:22 AB [id number]) Cardio Equipment Recumbent Bicycle Duration (Minutes) 8 Resistance none Seat Position 8 Other monitored for pain Therapeutic Exercises Supine Exercises hooklying hip abduction with band Side bilateral Resistance level 2 teal band Equipment Used x10 and one one minute hold Comments VC for alternating UE and bracing with abdominals, Pt ed rat one minute hol Hamstring stretch with AP Supine Exercise Name hamstring only this session Side bilateral Equipment Used with strap Reps/Minutes 45 sec, 30 APs X2 Standing Exercises mini wall squat Standing Exercise Name with and without band Side bilateral Reps/Minutes X10 w/o band and X 10 with level one band X 3 with level 2 band Comments Verbal cues for trunk/LE position and to squat to pain free depth Manual Therapy Treatment Soft Tissue Mobilization STM to right quad, hamstring, calf muscles Body Location bilateral Mobilization Type Cross-Friction,Rolling Intensity/Depth Moderate Body Position Hooklying Comments prior to stretch Self-Care/Home Management Treatment Education Other Education Patient ed trial of going without shoe inserts in home for shorter periods of time, due to reports of feeling ambulation outdoors without inserts was too much. PT-OP-T Assessment and Plan Start: 04/27/23 07:21 Freq: Status: Active Protocol: Document 05/17/23 08:05 AB (Rec: 05/17/23 09:22 AB [id number]) Physical Therapy Assessment Goals 4 Impairment Evidence of imbalance with gait [employer]inery Operator Reforming Unit Goal (LTG) Pt will perform WNLs on a standardized balance test to decrease fall risk. LTG Duration 8 weeks 3 Impairment Decreased right hip and knee strength [employer] Operator Reforming Unit Goal (LTG) Pt will present with right knee flexion and extension and hip flexion, abduction and extension strength to at lesat 4+/5 to improve function. 2 Impairment Lack of HEP [facility] Goal (LTG) Pt will perform progressive HEP with I including pelvic realignment, posture, balance, flexibility and strengthening to improve postural, pain, range and balance. LTG Duration 8 weeks 1 [employer]inery Operator Reforming Unit Goal (LTG) Pt will present with an improved LEF score to at least 60/80 to reflect improved knee pain and function. Assessment Summary Assessment Patient reports feeling fine end of session, more comfortable. Able to perform a minimal squat with reports of increased pain, but crepitus noted at ~30 deg knee flexion left knee. Physical Therapy Plan Frequency and Duration Frequency of Treatment 2x/Week Duration of treatment (weeks) 8 Plan of Care Start Date 04/27/23 Plan of Care End Date 06/28/23 Next Visit Focus/Plan Next Note Type Treatment Note Next Visit Plan Over several treatments: Con't manual work and exercise progression, consider piriformis stretch and then gentle abdominal strengthening in hook lying(abdominal bracing with LE ext in hooklying), progress balance exercises in standing and gentle hip strengthening in standing including extension, abduction and if knee tolerates, revisit mini wall slides with band around knees and also consider ankle DF and eversion strengthening exercise with band around ankles in sitting. Pt has a body blade and may do well with standing balance and core work using body blade. If closed chain knee strengtening in standing is too much, can try LAQ or even LAQ with band around knees to engage glutes while extending legs
--- NOTE | 2023-05-19 08:59 | PT.OTN ---
Current Diagnoses Other chronic pain (05/19/23) Pain in right knee (05/19/23) Physical Therapy Treatment Note PT-OP-A Visit Information Start: 04/27/23 07:21 Freq: Status: Active Protocol: Document 05/19/23 08:16 MB (Rec: 05/19/23 08:59 MB [id number]) Out-Patient Physical Therapy Visit Information Visit Information Visit Type Treatment Note Visit Note 08/31 before prog note--prog note with PT next time see PT 09/09 before KX Visit Start Time 08:16 Visit Stop Time 08:56 Visit Number 7 Number of TORPEDO SHOOTER Visits 0 Precautions Precautions Please do not add more than 1- 2 exercises per session to monitor response, what works for pt and what does not PT-OP-B Current Condition Start: 04/27/23 07:21 Freq: Status: Active Protocol: Document 04/27/23 09:40 MB (Rec: 04/27/23 10:28 MB [id number]) Current Condition History of Current Condition Onset Date Fall or 2022 Current Complaints Pain at night behind knee, ache History of Current Condition Pt has a history of left knee pain. Her right knee started bothering her in the fall. She had a dexascan that now shows OP and she has felt some instability in her right greater than left knee. She was sleeves that help her feel more secure. At night when sleeping in bed and she turns, she has an ache in the back and outside of the right knee. It is intermittent. It's hard to rate the pain. It is unpredictable. She likes to go for walks. Sometimes it is better than others. She has recovered pretty well from her old right humeral fracture from two years ago. The whole right side seems to be problematic intermittently with right back, hip and ankle . X-ray of right knee showed degenerative changes. Pt is having trouble sleeping and it gets her up at least two nights a week. Pt's a little under a year ago. She has trouble with the steps and her right ankle doesn't move as much with desceding the steps. Treatment Goals Patient/Caregiver Goals Less pain and more stability in the right knee PT-OP-C Subjective Start: 04/27/23 07:21 Freq: Status: Active Protocol: Document 05/19/23 08:16 MB (Rec: 05/19/23 08:59 MB [id number]) OP-PT Subjective Patient Comments Patient Comments Pt states she doesn't know about walking without the orthotics. She thinks it feels more comfortable walking in sandals without the orthotics. The calf stretches are good and the exercise with the harder band for her hips is good. The standing wall slide caused some cracking in the left knee and no pain. PT-OP-G Mobility & Gait Start: 04/27/23 07:21 Freq: Status: Active Protocol: Document 04/27/23 09:40 MB (Rec: 04/27/23 10:28 MB [id number]) OP Gait Assessment Comments Gait Comments Gait with socks on: right foot with rigidity and step-to pattern with less movement in right ankle and some supination at the rearfoot. Pt with over pronation of left rearfoot. PT-OP-J Posture/Palpation/Skin Start: 04/27/23 07:21 Freq: Status: Active Protocol: Document 04/27/23 09:40 MB (Rec: 04/27/23 10:28 MB [id number]) Posture Evaluation Comments Posture Comments Standing posture in socks: B rounded shoulders, forward head, right thoracic convexity , right iliac crest higher than the left, B knee valgus, greater on the right and some unweighting of the right foot PT-OP-K Range of Motion Start: 04/27/23 07:21 Freq: Status: Active Protocol: Document 04/27/23 09:40 MB (Rec: 04/27/23 10:28 MB [id number]) Knee Goniometric Range of Motion Knee ROM Limitations Comments B knee degenerative presentation with lacking full zero degree end-range extension in supine, grossly 2 deg. Right knee has soft tissue tightness and fullness that is firm to touch. B AROM flexion to 124 deg. Tension area is behind the knee and also distal and pt may have a plantarflexor change. She appears to have ankle changes and does not quite reach neutral DF in right ankle in supine. Pt has two inserts in shoes that she wears. PT-OP-M Strength Start: 04/27/23 07:21 Freq: Status: Active Protocol: Document 04/27/23 09:40 MB (Rec: 04/27/23 10:28 MB [id number]) Hip Strength Hip Manual Muscle Testing Left Flexion (L2) 4+ Good+ Extension (S1) 4 Good Abduction 4 Good Right Flexion (L2) 4 Good Extension (S1) 4- Good- Abduction 4- Good- Knee Strength Knee Manual Muscle Testing Left Flexion (S2) 5 Normal Extension (L3) 5 Normal Right Flexion (S2) 4 Good Extension (L3) 4+ Good+ Ankle/Foot Strength Ankle and Foot Manual Muscle Testing Bilateral Dorsiflexion (L4) 5 Normal Toe Strength Toe Manual Muscle Testing Left Great Toe Extension 5 Normal Right Great Toe Extension 5 Normal PT-OP-Q Treatments Start: 04/27/23 07:21 Freq: Status: Active Protocol: Document 05/19/23 08:16 MB (Rec: 05/19/23 08:59 MB [id number]) Cardio Equipment Recumbent Elliptical (Studio Bloomed) Duration (Minutes) 10 Resistance 3-4 Therapeutic Exercises Sitting Exercises Ankle DF and eversion Sitting Exercise Name Cues for some space between feet and knees Equipment Used Teal TB Reps/Minutes 15 Comments DF and then eversion, resistance on band LAQ with band around knee Sitting Exercise Name Band around knees to help hip ER for knee alignment Resistance Teal band Reps/Minutes 5 alternating reps with up to 20 APs per rep Comments LAQ with ankle pump and alternating reps Gait Training Gait Activity Gait training in hallway to observe gait pattern Comments [place] shoes without orthotics today and pt makes better reciprocal gait, longer steps and occ cues for arm swing to improve stepping Manual Therapy Treatment Other Other Manual Treatments Pt hook lying and head and legs supported: STM and positional release left vastus lateralis, hamstrings, gastroc and slightly less tight today PT-OP-T Assessment and Plan Start: 04/27/23 07:21 Freq: Status: Active Protocol: Document 05/19/23 08:16 MB (Rec: 05/19/23 08:59 MB [id number]) Physical Therapy Assessment Rehab Potential Rehabilitation Potential Good Evaluation Complexity Number of Personal Factors/Comorbidities 1-2 Number of Body Systems Impaired 1-2 Clinical Presentation at Evaluation Evolving Impairments Impairments Activity Tolerance,Balance, Functional Activities, Functional Mobility,Gait,Pain, Posture,ROM,Soft Tissue Mobility,Strength Goals 4 Impairment Evidence of imbalance with gait Fpc Goal (LTG) Pt will perform WNLs on a standardized balance test to decrease fall risk. LTG Duration 8 weeks 3 Impairment Decreased right hip and knee strength Fpc Goal (LTG) Pt will present with right knee flexion and extension and hip flexion, abduction and extension strength to at lesat 4+/5 to improve function. LTG Duration 8 weeks 2 Impairment Lack of HEP Fpc Goal (LTG) Pt will perform progressive HEP with I including pelvic realignment, posture, balance, flexibility and strengthening to improve postural, pain, range and balance. LTG Duration 8 weeks 1 Impairment LEF score is 52/80 Cement Mixer Goal (LTG) Pt will present with an improved LEF score to at least 60/80 to reflect improved knee pain and function. LTG Duration 8 weeks Assessment Summary Assessment Overall, pt is a lady presenting with multiple joint changes and postural changes that are likely degenerative in nature and bony alignment affects left greater than right knee valgus and she has inversion and medial WB of left foot with gait and lateral WB right foot with gait. Attempting to gently strengthen in postural and arthritic changes and intiated sitting quad strengthening with hip abductor engagement today. Physical Therapy Plan Frequency and Duration Frequency of Treatment 2x/Week Duration of treatment (weeks) 8 Plan of Care Start Date 04/27/23 Plan of Care End Date 06/28/23 Therapeutic Interventions Therapeutic Interventions Balance Training,Canalithic Repositioning,Gait Training, Home Exercise Program,Joint Mobilizations,Manual Therapy, Neuromuscular Re-education, Patient/Caregiver Education, Self-Care/Home Management,Soft Tissue Mobilization,Taping, Therapeutic Activities, Therapeutic Exercises Modalities Cold Pack/Ice Massage,Electric Stimulation,Hot Packs, Ultrasound Next Visit Focus/Plan Next Note Type Treatment Note Next Visit Plan Over many treatments: Con't manual work and exercise progression, consider piriformis stretch and then gentle abdominal strengthening in hook lying, progress balance exercises in standing and gentle hip strengthening in standing including extension, abduction and if knee tolerates, mini wall slides with band around knees and also consider ankle DF and eversion strengthening exercise with band around ankles in sitting. Pt has a body blade and may do well with standing balance and core work using body blade.
--- NOTE | 2023-05-25 08:55 | PT.OTN ---
Current Diagnoses Other chronic pain (05/25/23) Pain in right knee (05/25/23) Physical Therapy Treatment Note PT-OP-A Visit Information Start: 04/27/23 07:21 Freq: Status: Active Protocol: Document 05/25/23 08:17 MB (Rec: 05/25/23 08:55 MB [id number]) Out-Patient Physical Therapy Visit Information Visit Information Visit Type Progress Note Visit Start Time 08:17 Visit Stop Time 08:57 Visit Number 8 Precautions Precautions Please do not add more than 1- 2 exercises per session to monitor response, what works for pt and what does not PT-OP-B Current Condition Start: 04/27/23 07:21 Freq: Status: Active Protocol: Document 04/27/23 09:40 MB (Rec: 04/27/23 10:28 MB [id number]) Current Condition History of Current Condition Onset Date Fall or 2022 Current Complaints Pain at night behind knee, ache History of Current Condition Pt has a history of left knee pain. Her right knee started bothering her in the fall. She had a dexascan that now shows OP and she has felt some instability in her right greater than left knee. She was sleeves that help her feel more secure. At night when sleeping in bed and she turns, she has an ache in the back and outside of the right knee. It is intermittent. It's hard to rate the pain. It is unpredictable. She likes to go for walks. Sometimes it is better than others. She has recovered pretty well from her old right humeral fracture from two years ago. The whole right side seems to be problematic intermittently with right back, hip and ankle . X-ray of right knee showed degenerative changes. Pt is having trouble sleeping and it gets her up at least two nights a week. Pt's a little under a year ago. She has trouble with the steps and her right ankle doesn't move as much with desceding the steps. Treatment Goals Patient/Caregiver Goals Less pain and more stability in the right knee PT-OP-C Subjective Start: 04/27/23 07:21 Freq: Status: Active Protocol: Document 05/25/23 08:17 MB (Rec: 05/25/23 08:55 MB [id number]) OP-PT Subjective Patient Comments Patient Comments Pt states that she added back in her orthotics because walking without them increased B knee pain. The band exercise for ankles is challenging. PT-OP-G Mobility & Gait Start: 04/27/23 07:21 Freq: Status: Active Protocol: Document 04/27/23 09:40 MB (Rec: 04/27/23 10:28 MB [id number]) OP Gait Assessment Comments Gait Comments Gait with socks on: right foot with rigidity and step-to pattern with less movement in right ankle and some supination at the rearfoot. Pt with over pronation of left rearfoot. PT-OP-J Posture/Palpation/Skin Start: 04/27/23 07:21 Freq: Status: Active Protocol: Document 04/27/23 09:40 MB (Rec: 04/27/23 10:28 MB [id number]) Posture Evaluation Comments Posture Comments Standing posture in socks: B rounded shoulders, forward head, right thoracic convexity , right iliac crest higher than the left, B knee valgus, greater on the right and some unweighting of the right foot PT-OP-K Range of Motion Start: 04/27/23 07:21 Freq: Status: Active Protocol: Document 04/27/23 09:40 MB (Rec: 04/27/23 10:28 MB [id number]) Knee Goniometric Range of Motion Knee ROM Limitations Comments B knee degenerative presentation with lacking full zero degree end-range extension in supine, grossly 2 deg. Right knee has soft tissue tightness and fullness that is firm to touch. B AROM flexion to 124 deg. Tension area is behind the knee and also distal and pt may have a plantarflexor change. She appears to have ankle changes and does not quite reach neutral DF in right ankle in supine. Pt has two inserts in shoes that she wears. PT-OP-M Strength Start: 04/27/23 07:21 Freq: Status: Active Protocol: Document 04/27/23 09:40 MB (Rec: 04/27/23 10:28 MB [id number]) Hip Strength Hip Manual Muscle Testing Left Flexion (L2) 4+ Good+ Extension (S1) 4 Good Abduction 4 Good Right Flexion (L2) 4 Good Extension (S1) 4- Good- Abduction 4- Good- Knee Strength Knee Manual Muscle Testing Left Flexion (S2) 5 Normal Extension (L3) 5 Normal Right Flexion (S2) 4 Good Extension (L3) 4+ Good+ Ankle/Foot Strength Ankle and Foot Manual Muscle Testing Bilateral Dorsiflexion (L4) 5 Normal Toe Strength Toe Manual Muscle Testing Left Great Toe Extension 5 Normal Right Great Toe Extension 5 Normal PT-OP-Q Treatments Start: 04/27/23 07:21 Freq: Status: Active Protocol: Document 05/25/23 08:17 MB (Rec: 05/25/23 08:55 MB [id number]) Cardio Equipment Bicycle (Upright) Duration (Minutes) 10 Resistance 5-6 Seat Position 8 Therapeutic Exercises Sitting Exercises Ankle DF and eversion Sitting Exercise Name Cues for some space between feet and knees Equipment Used Teal TB Reps/Minutes 10 Comments DF and then eversion, resistance on band LAQ with band around knee Sitting Exercise Name Band around knees to help hip ER for knee alignment Resistance Teal band Reps/Minutes 1 alternating Comments LAQ with ankle pump and alternating reps Other Exercises HEP review Comments Pt verbalizes or demonstrates all exercises Neuro Re-Education Treatment Balance Activities FGA Comments FGA score is 15/30 PT-OP-T Assessment and Plan Start: 04/27/23 07:21 Freq: Status: Active Protocol: Document 05/25/23 08:17 MB (Rec: 05/25/23 08:55 MB [id number]) Physical Therapy Assessment Rehab Potential Rehabilitation Potential Good Evaluation Complexity Number of Personal Factors/Comorbidities 1-2 Number of Body Systems Impaired 1-2 Clinical Presentation at Evaluation Evolving Impairments Impairments Activity Tolerance,Balance, Functional Activities, Functional Mobility,Gait,Pain, Posture,ROM,Soft Tissue Mobility,Strength Goals 4 Impairment Evidence of imbalance with gait Button Sewer Goal (LTG) Pt will perform WNLs on a standardized balance test to decrease fall risk. 05/25/23: FGA score: 1530 LTG Duration 4 weeks 3 Impairment Decreased right hip and knee strength Mcfp Goal (LTG) Pt will present with right knee flexion and extension and hip flexion, abduction and extension strength to at lesat 4+/5 to improve function. 05/25/23: right hip flexion, abd and extension 4+/5; right knee flexion and extension 5/5 ; left hip flexion, abd and extension 4+/5, left knee flexion and extension 5/5 LTG Duration Met 2 Impairment Lack of HEP Button Sewer Goal (LTG) Pt will perform progressive HEP with I including pelvic realignment, posture, balance, flexibility and strengthening to improve postural, pain, range and balance. 05/25/23: Pt is performing pelvic realignment exercises, hamstring, calf, abd/add stretches, hook lying clam with band, standing calf stretches, sitting LAQ with band around knees to engage glutes, ankle strengthening in sitting LTG Duration 4 weeks 1 Impairment LEF score is 52/80 Mcfp Goal (LTG) Pt will present with an improved LEF score to at least 60/80 to reflect improved knee pain and function. 05/25/23: 49/80, slight improvement in LEF after 7 treatments and the eval LTG Duration 4 weeks Assessment Summary Assessment Progress note today. Overall, pt is a lady presenting with multiple joint changes and postural changes that are likely degenerative in nature and bony alignment affects left greater than right knee valgus and she has inversion and medial WB of left foot with gait and lateral WB right foot with gait. 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 She occ has B knee discomfort. Trying no orthotics did not help. Her LE strength is better and she can con't to benefit from balance, core and other exercises for improvement. Physical Therapy Plan Frequency and Duration Frequency of Treatment 2x/Week Duration of treatment (weeks) 4 Plan of Care Start Date 05/25/23 Plan of Care End Date 06/28/23 Therapeutic Interventions Therapeutic Interventions Balance Training,Canalithic Repositioning,Gait Training, Home Exercise Program,Joint Mobilizations,Manual Therapy, Neuromuscular Re-education, Patient/Caregiver Education, Self-Care/Home Management,Soft Tissue Mobilization,Taping, Therapeutic Activities, Therapeutic Exercises Modalities Cold Pack/Ice Massage,Electric Stimulation,Hot Packs, Ultrasound Other Referrals/Consults Referrals/Consults Recommended Follow-up with Dr. Stewart about large Jeffries's cyst area on back of right knee Next Visit Focus/Plan Next Note Type Treatment Note Next Visit Plan Over many treatments: Con't manual work and exercise progression, consider piriformis stretch and then gentle abdominal strengthening in hook lying, progress balance exercises in standing and gentle hip strengthening in standing including extension, abduction and if knee tolerates. Pt has a body blade and may do well with standing balance and core work using body blade.
--- NOTE | 2023-05-25 08:55 | PT.OPPOC ---
Physical, Occupational & Speech Therapy At [facility] Current Diagnoses Other chronic pain (05/25/23) Pain in right knee (05/25/23) Visit Care Team Role Provider Type Yvan Stewart MD Attending Provider Physician Family Provider Primary Care Provider Referring Provider Specialty: Family Practice Address: [address] [place] [address], [facility] Email: [email or web address] Plan Of Care PT-OP-T Assessment and Plan Start: 04/27/23 07:21 Freq: Status: Active Protocol: Document 05/25/23 08:17 MB (Rec: 05/25/23 08:55 MB [id number]) Physical Therapy Assessment Rehab Potential Rehabilitation Potential Good Evaluation Complexity Number of Personal Factors/Comorbidities 1-2 Number of Body Systems Impaired 1-2 Clinical Presentation at Evaluation Evolving Impairments Impairments Activity Tolerance,Balance, Functional Activities, Functional Mobility,Gait,Pain, Posture,ROM,Soft Tissue Mobility,Strength Goals 4 Impairment Evidence of imbalance with gait Special Events Planner Goal (LTG) Pt will perform WNLs on a standardized balance test to decrease fall risk. 05/25/23: FGA score: 15/30 LTG Duration 4 weeks 3 Impairment Decreased right hip and knee strength Residential Goal (LTG) Pt will present with right knee flexion and extension and hip flexion, abduction and extension strength to at lesat 4+/5 to improve function. 05/25/23: right hip flexion, abd and extension 4+/5; right knee flexion and extension 5/5 ; left hip flexion, abd and extension 4+/5, left knee flexion and extension 5/5 LTG Duration Met 2 Impairment Lack of HEP Residential Goal (LTG) Pt will perform progressive HEP with I including pelvic realignment, posture, balance, flexibility and strengthening to improve postural, pain, range and balance. 05/25/23: Pt is performing pelvic realignment exercises, hamstring, calf, abd/add stretches, hook lying clam with band, standing calf stretches, sitting LAQ with band around knees to engage glutes, ankle strengthening in sitting LTG Duration 4 weeks 1 Impairment LEF score is 52/80 Residential Goal (LTG) Pt will present with an improved LEF score to at least 60/80 to reflect improved knee pain and function. 05/25/23: 49/80, slight improvement in LEF after 7 treatments and the eval LTG Duration 4 weeks Assessment Summary Assessment Progress note today. Overall, pt is a lady presenting with multiple joint changes and postural changes that are likely degenerative in nature and bony alignment affects left greater than right knee valgus and she has inversion and medial WB of left foot with gait and lateral WB right foot with gait. 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 She occ has B knee discomfort. Trying no orthotics did not help. Her LE strength is better and she can con't to benefit from balance, core and other exercises for improvement. Physical Therapy Plan Frequency and Duration Frequency of Treatment 2x/Week Duration of treatment (weeks) 4 Plan of Care Start Date 05/25/23 Plan of Care End Date 06/28/23 Therapeutic Interventions Therapeutic Interventions Balance Training,Canalithic Repositioning,Gait Training, Home Exercise Program,Joint Mobilizations,Manual Therapy, Neuromuscular Re-education, Patient/Caregiver Education, Self-Care/Home Management,Soft Tissue Mobilization,Taping, Therapeutic Activities, Therapeutic Exercises Modalities Cold Pack/Ice Massage,Electric Stimulation,Hot Packs, Ultrasound Other Referrals/Consults Referrals/Consults Recommended Follow-up with Dr. Stewart about large Jeffries's cyst area on back of right knee Next Visit Focus/Plan Next Note Type Treatment Note Next Visit Plan Over many treatments: Con't manual work and exercise progression, consider piriformis stretch and then gentle abdominal strengthening in hook lying, progress balance exercises in standing and gentle hip strengthening in standing including extension, abduction and if knee tolerates. Pt has a body blade and may do well with standing balance and core work using body blade. Plan of Care Dates Plan of Care Start Date 05/25/23 Plan of Care End Date 06/28/23 Electronically Signed by: Darcie Wagner PT 05/25/23 [id number] If you are in agreement with this Plan of Care, please return a signed and dated copy. I have reviewed this Plan of Care and certify that the skilled therapy services above are required to meet the patient?s needs. Physician Signature Date Printed Name and Credentials Clinical Instructor Signature Printed Name and Credentials
--- NOTE | 2023-05-28 11:47 | PT.OTN ---
Current Diagnoses Other chronic pain (05/28/23) Pain in right knee (05/28/23) Physical Therapy Treatment Note PT-OP-A Visit Information Start: 04/27/23 07:21 Freq: Status: Active Protocol: Document 05/28/23 08:06 AB (Rec: 05/28/23 09:01 AB [id number]) Out-Patient Physical Therapy Visit Information Visit Information Visit Type Treatment Note Visit Note 04/03 for PT Visit Start Time 08:16 Visit Stop Time 08:59 Visit Number 9 Number of CASINO WORKER Visits 1 Evaluation Information Evaluation Date 04/27/23 Precautions Precautions Please do not add more than 1- 2 exercises per session to monitor response, what works for pt and what does not PT-OP-B Current Condition Start: 04/27/23 07:21 Freq: Status: Active Protocol: Document 04/27/23 09:40 MB (Rec: 04/27/23 10:28 MB [id number]) Current Condition History of Current Condition Onset Date Fall or 2022 Current Complaints Pain at night behind knee, ache History of Current Condition Pt has a history of left knee pain. Her right knee started bothering her in the fall. She had a dexascan that now shows OP and she has felt some instability in her right greater than left knee. She was sleeves that help her feel more secure. At night when sleeping in bed and she turns, she has an ache in the back and outside of the right knee. It is intermittent. It's hard to rate the pain. It is unpredictable. She likes to go for walks. Sometimes it is better than others. She has recovered pretty well from her old right humeral fracture from two years ago. The whole right side seems to be problematic intermittently with right back, hip and ankle . X-ray of right knee showed degenerative changes. Pt is having trouble sleeping and it gets her up at least two nights a week. Pt's a little under a year ago. She has trouble with the steps and her right ankle doesn't move as much with desceding the steps. Treatment Goals Patient/Caregiver Goals Less pain and more stability in the right knee PT-OP-C Subjective Start: 04/27/23 07:21 Freq: Status: Active Protocol: Document 05/28/23 08:06 AB (Rec: 05/28/23 09:01 AB [id number]) OP-PT Subjective Patient Comments Patient Comments Patient reports her knee pain is less now that she has the orthotics back in. Patient reports/comments she is uncomfortable with the way the left knee feels during the soleus stretch standing at wall, gastroc stretch is fine. PT-OP-G Mobility & Gait Start: 04/27/23 07:21 Freq: Status: Active Protocol: Document 04/27/23 09:40 MB (Rec: 04/27/23 10:28 MB [id number]) OP Gait Assessment Comments Gait Comments Gait with socks on: right foot with rigidity and step-to pattern with less movement in right ankle and some supination at the rearfoot. Pt with over pronation of left rearfoot. PT-OP-J Posture/Palpation/Skin Start: 04/27/23 07:21 Freq: Status: Active Protocol: Document 04/27/23 09:40 MB (Rec: 04/27/23 10:28 MB [id number]) Posture Evaluation Comments Posture Comments Standing posture in socks: B rounded shoulders, forward head, right thoracic convexity , right iliac crest higher than the left, B knee valgus, greater on the right and some unweighting of the right foot PT-OP-K Range of Motion Start: 04/27/23 07:21 Freq: Status: Active Protocol: Document 04/27/23 09:40 MB (Rec: 04/27/23 10:28 MB [id number]) Knee Goniometric Range of Motion Knee ROM Limitations Comments B knee degenerative presentation with lacking full zero degree end-range extension in supine, grossly 2 deg. Right knee has soft tissue tightness and fullness that is firm to touch. B AROM flexion to 124 deg. Tension area is behind the knee and also distal and pt may have a plantarflexor change. She appears to have ankle changes and does not quite reach neutral DF in right ankle in supine. Pt has two inserts in shoes that she wears. PT-OP-M Strength Start: 04/27/23 07:21 Freq: Status: Active Protocol: Document 04/27/23 09:40 MB (Rec: 04/27/23 10:28 MB [id number]) Hip Strength Hip Manual Muscle Testing Left Flexion (L2) 4+ Good+ Extension (S1) 4 Good Abduction 4 Good Right Flexion (L2) 4 Good Extension (S1) 4- Good- Abduction 4- Good- Knee Strength Knee Manual Muscle Testing Left Flexion (S2) 5 Normal Extension (L3) 5 Normal Right Flexion (S2) 4 Good Extension (L3) 4+ Good+ Ankle/Foot Strength Ankle and Foot Manual Muscle Testing Bilateral Dorsiflexion (L4) 5 Normal Toe Strength Toe Manual Muscle Testing Left Great Toe Extension 5 Normal Right Great Toe Extension 5 Normal PT-OP-Q Treatments Start: 04/27/23 07:21 Freq: Status: Active Protocol: Document 05/28/23 08:06 AB (Rec: 05/28/23 09:01 [id number]) Therapeutic Exercises Supine Exercises hooklying hip abduction with band Side bilateral Resistance level 2 teal band Equipment Used 2x10 and one one minute hold Comments VC for alternating UE and bracing with abdominals, Pt ed rat one minute hol Hamstring stretch with AP Supine Exercise Name hamstring only this session Side bilateral Equipment Used with strap Reps/Minutes 60 seconds X2 with ankle DF/PF against strap X45 Sitting Exercises Ankle DF and eversion Sitting Exercise Name AROM post calf stretches DF only this session Reps/Minutes X20 Comments Verbal cues Standing Exercises Gastroc and soleus stretches Standing Exercise Name Standing at wall Side bilateral Reps/Minutes Gastroch X 1 soleus X 3 60 secon Manual Therapy Treatment Soft Tissue Mobilization STM to right quad, hamstring, calf muscles Body Location bilateral Mobilization Type Cross-Friction,Rolling Intensity/Depth Moderate Body Position Hooklying Comments prior to stretch Neuro Re-Education Treatment Balance Activities tandem stance Details initiated with hand above bar, eyes closed X 5 Reps/Duration X5 left fwd X 5 right fwd Comments CGA Romberg Reps/Duration x1 Comments CGA, minimal sway tandem stepping Details initiated with hand above parallel bars Reps/Duration 12 feet X 3 Comments CGA, decreased use of bars on final trials Self-Care/Home Management Treatment Activities Self-Care/Home Management Activities HEP soleus stretch modified, added bent knee fall out with band and one minute hold in same position (hooklying) PT-OP-T Assessment and Plan Start: 04/27/23 07:21 Freq: Status: Active Protocol: Document 05/28/23 08:06 AB (Rec: 05/28/23 09:01 [id number]) Physical Therapy Assessment Goals 4 Impairment Evidence of imbalance with gait Residential Goal (LTG) Pt will perform WNLs on a standardized balance test to decrease fall risk. 05/25/23: FGA score: 15/30 LTG Duration 4 weeks 3 Impairment Decreased right hip and knee strength Residential Goal (LTG) Pt will present with right knee flexion and extension and hip flexion, abduction and extension strength to at lesat 4+/5 to improve function. 05/25/23: right hip flexion, abd and extension 4+/5; right knee flexion and extension 5/5 ; left hip flexion, abd and extension 4+/5, left knee flexion and extension 5/5 LTG Duration Met 2 Impairment Lack of HEP Residential Goal (LTG) Pt will perform progressive HEP with I including pelvic realignment, posture, balance, flexibility and strengthening to improve postural, pain, range and balance. 05/25/23: Pt is performing pelvic realignment exercises, hamstring, calf, abd/add stretches, hook lying clam with band, standing calf stretches, sitting LAQ with band around knees to engage glutes, ankle strengthening in sitting LTG Duration 4 weeks 1 Impairment LEF score is 52/80 Director Print Goal (LTG) Pt will present with an improved LEF score to at least 60/80 to reflect improved knee pain and function. 05/25/23: 49/80, slight improvement in LEF after 7 treatments and the eval LTG Duration 4 weeks Assessment Summary Assessment Decreased use of parallel bar noted on final trials of tandem stepping this session. Good tolerance to modification of soleus stretch from standing at wall to forefoot on small step. Physical Therapy Plan Frequency and Duration Frequency of Treatment 2x/Week Duration of treatment (weeks) 4 Plan of Care Start Date 05/25/23 Plan of Care End Date 06/28/23 Next Visit Focus/Plan Next Note Type Treatment Note Next Visit Plan Over many treatments: Con't manual work and exercise progression, consider piriformis stretch and then gentle abdominal strengthening in hook lying, progress balance exercises in standing and gentle hip strengthening in standing including extension, abduction and if knee tolerates. Pt has a body blade and may do well with standing balance and Next session focus on core work using body blade. [ End ]
--- NOTE | 2023-05-31 12:21 | PT.OTN ---
Current Diagnoses Other chronic pain (05/31/23) Pain in right knee (05/31/23) Physical Therapy Treatment Note PT-OP-A Visit Information Start: 04/27/23 07:21 Freq: Status: Active Protocol: Document 05/31/23 09:17 AB (Rec: 05/31/23 12:21 AB [id number]) Out-Patient Physical Therapy Visit Information Visit Information Visit Type Treatment Note Visit Note 05/01 for PT Access Code [email or web address] Visit Start Time 10:34 Visit Stop Time 11:16 Visit Number 10 Number of STAFF ANALYST Visits 2 Precautions Precautions Please do not add more than 1- 2 exercises per session to monitor response, what works for pt and what does not PT-OP-B Current Condition Start: 04/27/23 07:21 Freq: Status: Active Protocol: Document 04/27/23 09:40 MB (Rec: 04/27/23 10:28 MB [id number]) Current Condition History of Current Condition Onset Date Fall or 2022 Current Complaints Pain at night behind knee, ache History of Current Condition Pt has a history of left knee pain. Her right knee started bothering her in the fall. She had a dexascan that now shows OP and she has felt some instability in her right greater than left knee. She was sleeves that help her feel more secure. At night when sleeping in bed and she turns, she has an ache in the back and outside of the right knee. It is intermittent. It's hard to rate the pain. It is unpredictable. She likes to go for walks. Sometimes it is better than others. She has recovered pretty well from her old right humeral fracture from two years ago. The whole right side seems to be problematic intermittently with right back, hip and ankle . X-ray of right knee showed degenerative changes. Pt is having trouble sleeping and it gets her up at least two nights a week. Pt's a little under a year ago. She has trouble with the steps and her right ankle doesn't move as much with desceding the steps. Treatment Goals Patient/Caregiver Goals Less pain and more stability in the right knee PT-OP-C Subjective Start: 04/27/23 07:21 Freq: Status: Active Protocol: Document 05/31/23 09:17 AB (Rec: 05/31/23 12:21 AB [id number]) OP-PT Subjective Patient Comments Patient Comments Patient reports the exercises are going better with the towel (soleus stretch) and with the band. Patient reports having no pain, less irritation in the knees. Patient comments she feels a little better descending stairs with one rail. PT-OP-G Mobility & Gait Start: 04/27/23 07:21 Freq: Status: Active Protocol: Document 04/27/23 09:40 MB (Rec: 04/27/23 10:28 MB [id number]) OP Gait Assessment Comments Gait Comments Gait with socks on: right foot with rigidity and step-to pattern with less movement in right ankle and some supination at the rearfoot. Pt with over pronation of left rearfoot. PT-OP-J Posture/Palpation/Skin Start: 04/27/23 07:21 Freq: Status: Active Protocol: Document 04/27/23 09:40 MB (Rec: 04/27/23 10:28 MB [id number]) Posture Evaluation Comments Posture Comments Standing posture in socks: B rounded shoulders, forward head, right thoracic convexity , right iliac crest higher than the left, B knee valgus, greater on the right and some unweighting of the right foot PT-OP-K Range of Motion Start: 04/27/23 07:21 Freq: Status: Active Protocol: Document 04/27/23 09:40 MB (Rec: 04/27/23 10:28 MB [id number]) Knee Goniometric Range of Motion Knee ROM Limitations Comments B knee degenerative presentation with lacking full zero degree end-range extension in supine, grossly 2 deg. Right knee has soft tissue tightness and fullness that is firm to touch. B AROM flexion to 124 deg. Tension area is behind the knee and also distal and pt may have a plantarflexor change. She appears to have ankle changes and does not quite reach neutral DF in right ankle in supine. Pt has two inserts in shoes that she wears. PT-OP-M Strength Start: 04/27/23 07:21 Freq: Status: Active Protocol: Document 04/27/23 09:40 MB (Rec: 04/27/23 10:28 MB [id number]) Hip Strength Hip Manual Muscle Testing Left Flexion (L2) 4+ Good+ Extension (S1) 4 Good Abduction 4 Good Right Flexion (L2) 4 Good Extension (S1) 4- Good- Abduction 4- Good- Knee Strength Knee Manual Muscle Testing Left Flexion (S2) 5 Normal Extension (L3) 5 Normal Right Flexion (S2) 4 Good Extension (L3) 4+ Good+ Ankle/Foot Strength Ankle and Foot Manual Muscle Testing Bilateral Dorsiflexion (L4) 5 Normal Toe Strength Toe Manual Muscle Testing Left Great Toe Extension 5 Normal Right Great Toe Extension 5 Normal PT-OP-Q Treatments Start: 04/27/23 07:21 Freq: Status: Active Protocol: Document 05/31/23 09:17 AB (Rec: 05/31/23 12:21 AB [id number]) Therapeutic Exercises Supine Exercises abdominal bracing with LE extension Reps/Minutes X12 post training Comments verbal cues to brace as LE extends, tactile cues at core hooklying hip abduction with band Side bilateral Resistance level 2 teal band Equipment Used 2x10 and one one minute hold Comments VC for alternating UE and bracing with abdominals, Pt ed rat one minute hol Standing Exercises Gastroc and soleus stretches Standing Exercise Name Standing at wall Side bilateral Reps/Minutes Gastroch X 1 soleus X 3 60 secon Manual Therapy Treatment Soft Tissue Mobilization STM to right quad, hamstring, calf muscles Body Location bilateral Mobilization Type Cross-Friction,Rolling Intensity/Depth Moderate Body Position Hooklying Comments prior to stretch Neuro Re-Education Treatment Balance Activities hurdles Details hands above bars to use as needed Reps/Duration X6 Comments CGA step up tap Details hands above bars to use as needed Equipment 6 inch step Reps/Duration X12 Comments CGA tandem stepping Details initiated with hand above parallel bars Reps/Duration 12 feet X 6 Comments CGA, decreased use of bars on final trials Self-Care/Home Management Treatment Activities Self-Care/Home Management Activities abdominal bracing with LE extension in hooklying added to HEP PT-OP-T Assessment and Plan Start: 04/27/23 07:21 Freq: Status: Active Protocol: Document 05/31/23 09:17 AB (Rec: 05/31/23 12:21 AB [id number]) Physical Therapy Assessment Goals 4 Impairment Evidence of imbalance with gait [facility] Goal (LTG) Pt will perform WNLs on a standardized balance test to decrease fall risk. 05/25/23: FGA score: 15/30 LTG Duration 4 weeks 3 Impairment Decreased right hip and knee strength Mail Censor Goal (LTG) Pt will present with right knee flexion and extension and hip flexion, abduction and extension strength to at lesat 4+/5 to improve function. 05/25/23: right hip flexion, abd and extension 4+/5; right knee flexion and extension 5/5 ; left hip flexion, abd and extension 4+/5, left knee flexion and extension 5/5 LTG Duration Met 2 Impairment Lack of HEP [facility] Goal (LTG) Pt will perform progressive HEP with I including pelvic realignment, posture, balance, flexibility and strengthening to improve postural, pain, range and balance. 05/25/23: Pt is performing pelvic realignment exercises, hamstring, calf, abd/add stretches, hook lying clam with band, standing calf stretches, sitting LAQ with band around knees to engage glutes, ankle strengthening in sitting LTG Duration 4 weeks 1 Impairment LEF score is 52/80 [facility] Goal (LTG) Pt will present with an improved LEF score to at least 60/80 to reflect improved knee pain and function. 05/25/23: 49/80, slight improvement in LEF after 7 treatments and the eval LTG Duration 4 weeks Assessment Summary Assessment Good return demonstration for abdominal bracing with LE extension from hooklying, but unable to fully extend without anterior pelvic tilt, performs with good form without full LE extension. Physical Therapy Plan Frequency and Duration Frequency of Treatment 2x/Week Duration of treatment (weeks) 4 Plan of Care Start Date 05/25/23 Plan of Care End Date 06/28/23 Next Visit Focus/Plan Next Visit Plan Over many treatments: Con't manual work and exercise progression, consider piriformis stretch and then gentle abdominal strengthening in hook lying, progress balance exercises in standing and gentle hip strengthening in standing including extension, abduction and if knee tolerates. Pt has a body blade and may do well with standing balance and Next session focus on core work using body blade. [ End ]
--- NOTE | 2023-06-08 08:57 | PT.OTN ---
Current Diagnoses Other chronic pain (06/08/23) Pain in right knee (06/08/23) Physical Therapy Treatment Note PT-OP-A Visit Information Start: 04/27/23 07:21 Freq: Status: Active Protocol: Document 06/08/23 08:17 MB (Rec: 06/08/23 08:53 MB [id number]) Out-Patient Physical Therapy Visit Information Visit Information Visit Type Treatment Note Visit Note Access Code [email or web address] Visit Start Time 08:17 Visit Stop Time 08:57 Visit Number 11 Number of SPECIAL WEAPONS UNIT OFFICER Visits 0 Precautions Precautions Please do not add more than 1- 2 exercises per session to monitor response, what works for pt and what does not PT-OP-B Current Condition Start: 04/27/23 07:21 Freq: Status: Active Protocol: Document 04/27/23 09:40 MB (Rec: 04/27/23 10:28 MB [id number]) Current Condition History of Current Condition Onset Date Fall or 2022 Current Complaints Pain at night behind knee, ache History of Current Condition Pt has a history of left knee pain. Her right knee started bothering her in the fall. She had a dexascan that now shows OP and she has felt some instability in her right greater than left knee. She was sleeves that help her feel more secure. At night when sleeping in bed and she turns, she has an ache in the back and outside of the right knee. It is intermittent. It's hard to rate the pain. It is unpredictable. She likes to go for walks. Sometimes it is better than others. She has recovered pretty well from her old right humeral fracture from two years ago. The whole right side seems to be problematic intermittently with right back, hip and ankle . X-ray of right knee showed degenerative changes. Pt is having trouble sleeping and it gets her up at least two nights a week. Pt's a little under a year ago. She has trouble with the steps and her right ankle doesn't move as much with desceding the steps. Treatment Goals Patient/Caregiver Goals Less pain and more stability in the right knee PT-OP-C Subjective Start: 04/27/23 07:21 Freq: Status: Active Protocol: Document 06/08/23 08:17 MB (Rec: 06/08/23 08:53 MB [id number]) OP-PT Subjective Patient Comments Patient Comments Pt had increased time up on her feet helping at the [employer] and walking with her friend. The [employer] location has a cement floor and she has noticed some bruising on the inside of the left ankle. She has not been doing ankle band exercise much . PT-OP-G Mobility & Gait Start: 04/27/23 07:21 Freq: Status: Active Protocol: Document 04/27/23 09:40 MB (Rec: 04/27/23 10:28 MB [id number]) OP Gait Assessment Comments Gait Comments Gait with socks on: right foot with rigidity and step-to pattern with less movement in right ankle and some supination at the rearfoot. Pt with over pronation of left rearfoot. PT-OP-J Posture/Palpation/Skin Start: 04/27/23 07:21 Freq: Status: Active Protocol: Document 04/27/23 09:40 MB (Rec: 04/27/23 10:28 MB [id number]) Posture Evaluation Comments Posture Comments Standing posture in socks: B rounded shoulders, forward head, right thoracic convexity , right iliac crest higher than the left, B knee valgus, greater on the right and some unweighting of the right foot PT-OP-K Range of Motion Start: 04/27/23 07:21 Freq: Status: Active Protocol: Document 04/27/23 09:40 MB (Rec: 04/27/23 10:28 MB [id number]) Knee Goniometric Range of Motion Knee ROM Limitations Comments B knee degenerative presentation with lacking full zero degree end-range extension in supine, grossly 2 deg. Right knee has soft tissue tightness and fullness that is firm to touch. B AROM flexion to 124 deg. Tension area is behind the knee and also distal and pt may have a plantarflexor change. She appears to have ankle changes and does not quite reach neutral DF in right ankle in supine. Pt has two inserts in shoes that she wears. PT-OP-M Strength Start: 04/27/23 07:21 Freq: Status: Active Protocol: Document 04/27/23 09:40 MB (Rec: 04/27/23 10:28 MB [id number]) Hip Strength Hip Manual Muscle Testing Left Flexion (L2) 4+ Good+ Extension (S1) 4 Good Abduction 4 Good Right Flexion (L2) 4 Good Extension (S1) 4- Good- Abduction 4- Good- Knee Strength Knee Manual Muscle Testing Left Flexion (S2) 5 Normal Extension (L3) 5 Normal Right Flexion (S2) 4 Good Extension (L3) 4+ Good+ Ankle/Foot Strength Ankle and Foot Manual Muscle Testing Bilateral Dorsiflexion (L4) 5 Normal Toe Strength Toe Manual Muscle Testing Left Great Toe Extension 5 Normal Right Great Toe Extension 5 Normal PT-OP-Q Treatments Start: 04/27/23 07:21 Freq: Status: Active Protocol: Document 06/08/23 08:17 MB (Rec: 06/08/23 08:53 MB [id number]) Cardio Equipment Bicycle (Upright) Duration (Minutes) 10 Resistance 6 Seat Position 8 Therapeutic Exercises Supine Exercises Abdominal drawing in and pelvic tilt Comments Pelvic tilt added to abdominal drawing in Abdominal drawing in Supine Exercise Name Ed to keep breathing Comments Cue for bracing, add pelvic tilt later, need to make sure breathing abdominal bracing with LE extension Supine Exercise Name Pt tends to hold breath Reps/Minutes Ed in HS and not lifting leg Comments Cues for pelvic tilt, abdominal drawing in and HS PT-OP-T Assessment and Plan Start: 04/27/23 07:21 Freq: Status: Active Protocol: Document 06/08/23 08:17 MB (Rec: 06/08/23 08:53 MB [id number]) Physical Therapy Assessment Goals 4 Impairment Evidence of imbalance with gait Retirement Goal (LTG) Pt will perform WNLs on a standardized balance test to decrease fall risk. 05/25/23: FGA score: 15/30 LTG Duration 4 weeks 3 Impairment Decreased right hip and knee strength Cadd Operator Goal (LTG) Pt will present with right knee flexion and extension and hip flexion, abduction and extension strength to at lesat 4+/5 to improve function. 05/25/23: right hip flexion, abd and extension 4+/5; right knee flexion and extension 5/5 ; left hip flexion, abd and extension 4+/5, left knee flexion and extension 5/5 LTG Duration Met 2 Impairment Lack of HEP Retirement Goal (LTG) Pt will perform progressive HEP with I including pelvic realignment, posture, balance, flexibility and strengthening to improve postural, pain, range and balance. 05/25/23: Pt is performing pelvic realignment exercises, hamstring, calf, abd/add stretches, hook lying clam with band, standing calf stretches, sitting LAQ with band around knees to engage glutes, ankle strengthening in sitting LTG Duration 4 weeks 1 Impairment LEF score is 52/80 Retirement Goal (LTG) Pt will present with an improved LEF score to at least 60/80 to reflect improved knee pain and function. 05/25/23: 49/80, slight improvement in LEF after 7 treatments and the eval LTG Duration 4 weeks Assessment Summary Assessment Pt with deep purplish bruising medial distal ankle left foot along the calcaneus. She no real changes on the right. She thinks it has been there a week and she cannot tell what might have caused it. She is not on a blood thinner. Pt does have more tarsal bone and medial arch changes on left foot compared to the right. She con't to wear her Hokas with hard inserts and PT suspects that this is the issue and she feels like she needs to wear her inserts. Discussed softer inserts. The lift leg extension and core is way too much and hard for pt. Stepped it back today to get awareness of core. Exensive time working on core re-ed and taking out some her exercise handouts that were repeated in the exercise folder. Physical Therapy Plan Frequency and Duration Frequency of Treatment 2x/Week Duration of treatment (weeks) 4 Plan of Care Start Date 05/25/23 Plan of Care End Date 06/28/23 Next Visit Focus/Plan Next Note Type Treatment Note Next Visit Plan As needed, ongoing manual work and progress core and progress balance exercises in standing and gentle hip strengthening in standing including extension, abduction and if knee tolerates. Pt has a body blade and may do well with standing balance. Core sequence should go easy to hard which is abdominal drawing in and pelvic tilt today, then rocking, knee fall out and heel slide, marching.
--- NOTE | 2023-06-11 16:48 | PT.OTN ---
Current Diagnoses Other chronic pain (06/11/23) Pain in right knee (06/11/23) Physical Therapy Treatment Note PT-OP-A Visit Information Start: 04/27/23 07:21 Freq: Status: Active Protocol: Document 06/11/23 08:01 AB (Rec: 06/11/23 09:03 AB [id number]) Out-Patient Physical Therapy Visit Information Visit Information Visit Type Treatment Note Visit Note Access Code [email or web address] 07/01 for PN Visit Start Time 08:15 Visit Stop Time 09:00 Visit Number 12 Number of SCIENTIFIC INVESTIGATOR Visits 1 Evaluation Information Evaluation Date 04/27/23 Precautions Precautions Please do not add more than 1- 2 exercises per session to monitor response, what works for pt and what does not PT-OP-B Current Condition Start: 04/27/23 07:21 Freq: Status: Active Protocol: Document 04/27/23 09:40 MB (Rec: 04/27/23 10:28 MB [id number]) Current Condition History of Current Condition Onset Date Fall or 2022 Current Complaints Pain at night behind knee, ache History of Current Condition Pt has a history of left knee pain. Her right knee started bothering her in the fall. She had a dexascan that now shows OP and she has felt some instability in her right greater than left knee. She was sleeves that help her feel more secure. At night when sleeping in bed and she turns, she has an ache in the back and outside of the right knee. It is intermittent. It's hard to rate the pain. It is unpredictable. She likes to go for walks. Sometimes it is better than others. She has recovered pretty well from her old right humeral fracture from two years ago. The whole right side seems to be problematic intermittently with right back, hip and ankle . X-ray of right knee showed degenerative changes. Pt is having trouble sleeping and it gets her up at least two nights a week. Pt's a little under a year ago. She has trouble with the steps and her right ankle doesn't move as much with desceding the steps. Treatment Goals Patient/Caregiver Goals Less pain and more stability in the right knee PT-OP-C Subjective Start: 04/27/23 07:21 Freq: Status: Active Protocol: Document 06/11/23 08:01 AB (Rec: 06/11/23 09:03 AB [id number]) OP-PT Subjective Patient Comments Patient Comments Magi reports sometimes her legs feel good other times she has to think about it. Patient reports she is on the waiting list for Podiatry. Patient reports the bruising on her ankle is fading. PT-OP-G Mobility & Gait Start: 04/27/23 07:21 Freq: Status: Active Protocol: Document 04/27/23 09:40 MB (Rec: 04/27/23 10:28 MB [id number]) OP Gait Assessment Comments Gait Comments Gait with socks on: right foot with rigidity and step-to pattern with less movement in right ankle and some supination at the rearfoot. Pt with over pronation of left rearfoot. PT-OP-J Posture/Palpation/Skin Start: 04/27/23 07:21 Freq: Status: Active Protocol: Document 04/27/23 09:40 MB (Rec: 04/27/23 10:28 MB [id number]) Posture Evaluation Comments Posture Comments Standing posture in socks: B rounded shoulders, forward head, right thoracic convexity , right iliac crest higher than the left, B knee valgus, greater on the right and some unweighting of the right foot PT-OP-K Range of Motion Start: 04/27/23 07:21 Freq: Status: Active Protocol: Document 04/27/23 09:40 MB (Rec: 04/27/23 10:28 MB [id number]) Knee Goniometric Range of Motion Knee ROM Limitations Comments B knee degenerative presentation with lacking full zero degree end-range extension in supine, grossly 2 deg. Right knee has soft tissue tightness and fullness that is firm to touch. B AROM flexion to 124 deg. Tension area is behind the knee and also distal and pt may have a plantarflexor change. She appears to have ankle changes and does not quite reach neutral DF in right ankle in supine. Pt has two inserts in shoes that she wears. PT-OP-M Strength Start: 04/27/23 07:21 Freq: Status: Active Protocol: Document 04/27/23 09:40 MB (Rec: 04/27/23 10:28 MB [id number]) Hip Strength Hip Manual Muscle Testing Left Flexion (L2) 4+ Good+ Extension (S1) 4 Good Abduction 4 Good Right Flexion (L2) 4 Good Extension (S1) 4- Good- Abduction 4- Good- Knee Strength Knee Manual Muscle Testing Left Flexion (S2) 5 Normal Extension (L3) 5 Normal Right Flexion (S2) 4 Good Extension (L3) 4+ Good+ Ankle/Foot Strength Ankle and Foot Manual Muscle Testing Bilateral Dorsiflexion (L4) 5 Normal Toe Strength Toe Manual Muscle Testing Left Great Toe Extension 5 Normal Right Great Toe Extension 5 Normal PT-OP-Q Treatments Start: 04/27/23 07:21 Freq: Status: Active Protocol: Document 06/11/23 08:01 AB (Rec: 06/11/23 09:03 AB [id number]) Therapeutic Exercises Supine Exercises Abdominal drawing in and pelvic tilt Reps/Minutes X10, 5 second hold Comments review hooklying hip abduction with band Side bilateral Resistance level 2 teal band Equipment Used 1x10 and one one minute hold Comments VC for alt UE and bracing with abd, Pt ed rationale one minute hold Hamstring stretch with AP Supine Exercise Name hamstring only this session without AP Reps/Minutes X1 Sitting Exercises Ankle DF and eversion Sitting Exercise Name AROM post calf stretches DF only this session Equipment Used teal level 2 band Reps/Minutes X20 Comments Verbal cues Standing Exercises side stepping Reps/Minutes 10 feet X 3 left and right Comments Verbal cues to avoid toeing out Gastroc and soleus stretches Standing Exercise Name Standing at wall Side bilateral Reps/Minutes Gastroc and soleus X 2 each 60 seconds Comments on ADRIANO Manual Therapy Treatment Soft Tissue Mobilization STM to right quad, hamstring, calf muscles Body Location calf and hamstring only right LE this session Mobilization Type Cross-Friction,Rolling Intensity/Depth Moderate Body Position Hooklying Comments prior to stretch and with AROM DF during calf stretch Neuro Re-Education Treatment Balance Activities hurdles Details hands above bars to use as needed Reps/Duration X6 Comments CGA step up tap Details hands above bars to use as needed Equipment 6 inch step Reps/Duration X12 X2 Comments CGA verbal cues for eyes off feet on second set PT-OP-T Assessment and Plan Start: 04/27/23 07:21 Freq: Status: Active Protocol: Document 06/11/23 08:01 AB (Rec: 06/11/23 09:03 AB [id number]) Physical Therapy Assessment Goals 4 Impairment Evidence of imbalance with gait Residential Goal (LTG) Pt will perform WNLs on a standardized balance test to decrease fall risk. 05/25/23: FGA score: 15/30 LTG Duration 4 weeks 3 Impairment Decreased right hip and knee strength Converter Operator Goal (LTG) Pt will present with right knee flexion and extension and hip flexion, abduction and extension strength to at lesat 4+/5 to improve function. 05/25/23: right hip flexion, abd and extension 4+/5; right knee flexion and extension 5/5 ; left hip flexion, abd and extension 4+/5, left knee flexion and extension 5/5 2 Impairment Lack of HEP Converter Operator Goal (LTG) Pt will perform progressive HEP with I including pelvic realignment, posture, balance, flexibility and strengthening to improve postural, pain, range and balance. 05/25/23: Pt is performing pelvic realignment exercises, hamstring, calf, abd/add stretches, hook lying clam with band, standing calf stretches, sitting LAQ with band around knees to engage glutes, ankle strengthening in sitting 1 Impairment LEF score is 52/80 Converter Operator Goal (LTG) Pt will present with an improved LEF score to at least 60/80 to reflect improved knee pain and function. 05/25/23: 49/80, slight improvement in LEF after 7 treatments and the eval LTG Duration 4 weeks Assessment Summary Assessment Patient reports having no pain end of session, excellent return demonstration for abdominal bracing with bent knee fall out with band. Physical Therapy Plan Frequency and Duration Frequency of Treatment 2x/Week Duration of treatment (weeks) 4 Plan of Care Start Date 05/25/23 Plan of Care End Date 06/28/23 Next Visit Focus/Plan Next Note Type Treatment Note Next Visit Plan As needed, ongoing manual work and progress core and progress balance exercises in standing and gentle hip strengthening in standing including extension, abduction and if knee tolerates. Pt has a body blade and may do well with standing balance. Core sequence should go easy to hard which is abdominal drawing in and pelvic tilt today, then rocking, knee fall out and heel slide, marching.
--- NOTE | 2023-06-15 08:56 | PT.OTN ---
Current Diagnoses Other chronic pain (06/15/23) Pain in right knee (06/15/23) Physical Therapy Treatment Note PT-OP-A Visit Information Start: 04/27/23 07:21 Freq: Status: Active Protocol: Document 06/15/23 08:16 MB (Rec: 06/15/23 08:55 MB [id number]) Out-Patient Physical Therapy Visit Information Visit Information Visit Type Treatment Note Visit Note Access Code [id number] D/c in two treatments Visit Start Time 08:16 Visit Stop Time 08:56 Visit Number 13 Number of CONFERENCE SPECIALIST Visits 0 Precautions Precautions Please do not add more than 1- 2 exercises per session to monitor response, what works for pt and what does not PT-OP-B Current Condition Start: 04/27/23 07:21 Freq: Status: Active Protocol: Document 04/27/23 09:40 MB (Rec: 04/27/23 10:28 MB [id number]) Current Condition History of Current Condition Onset Date Fall or 2022 Current Complaints Pain at night behind knee, ache History of Current Condition Pt has a history of left knee pain. Her right knee started bothering her in the fall. She had a dexascan that now shows OP and she has felt some instability in her right greater than left knee. She was sleeves that help her feel more secure. At night when sleeping in bed and she turns, she has an ache in the back and outside of the right knee. It is intermittent. It's hard to rate the pain. It is unpredictable. She likes to go for walks. Sometimes it is better than others. She has recovered pretty well from her old right humeral fracture from two years ago. The whole right side seems to be problematic intermittently with right back, hip and ankle . X-ray of right knee showed degenerative changes. Pt is having trouble sleeping and it gets her up at least two nights a week. Pt's a little under a year ago. She has trouble with the steps and her right ankle doesn't move as much with desceding the steps. Treatment Goals Patient/Caregiver Goals Less pain and more stability in the right knee PT-OP-C Subjective Start: 04/27/23 07:21 Freq: Status: Active Protocol: Document 06/15/23 08:16 MB (Rec: 06/15/23 08:55 MB [id number]) OP-PT Subjective Patient Comments Patient Comments Pt states that she went walking and her legs felt a lot better, especially her ankles. PT-OP-G Mobility & Gait Start: 04/27/23 07:21 Freq: Status: Active Protocol: Document 04/27/23 09:40 MB (Rec: 04/27/23 10:28 MB [id number]) OP Gait Assessment Comments Gait Comments Gait with socks on: right foot with rigidity and step-to pattern with less movement in right ankle and some supination at the rearfoot. Pt with over pronation of left rearfoot. PT-OP-J Posture/Palpation/Skin Start: 04/27/23 07:21 Freq: Status: Active Protocol: Document 04/27/23 09:40 MB (Rec: 04/27/23 10:28 MB [id number]) Posture Evaluation Comments Posture Comments Standing posture in socks: B rounded shoulders, forward head, right thoracic convexity , right iliac crest higher than the left, B knee valgus, greater on the right and some unweighting of the right foot PT-OP-K Range of Motion Start: 04/27/23 07:21 Freq: Status: Active Protocol: Document 04/27/23 09:40 MB (Rec: 04/27/23 10:28 MB [id number]) Knee Goniometric Range of Motion Knee ROM Limitations Comments B knee degenerative presentation with lacking full zero degree end-range extension in supine, grossly 2 deg. Right knee has soft tissue tightness and fullness that is firm to touch. B AROM flexion to 124 deg. Tension area is behind the knee and also distal and pt may have a plantarflexor change. She appears to have ankle changes and does not quite reach neutral DF in right ankle in supine. Pt has two inserts in shoes that she wears. PT-OP-M Strength Start: 04/27/23 07:21 Freq: Status: Active Protocol: Document 04/27/23 09:40 MB (Rec: 04/27/23 10:28 MB [id number]) Hip Strength Hip Manual Muscle Testing Left Flexion (L2) 4+ Good+ Extension (S1) 4 Good Abduction 4 Good Right Flexion (L2) 4 Good Extension (S1) 4- Good- Abduction 4- Good- Knee Strength Knee Manual Muscle Testing Left Flexion (S2) 5 Normal Extension (L3) 5 Normal Right Flexion (S2) 4 Good Extension (L3) 4+ Good+ Ankle/Foot Strength Ankle and Foot Manual Muscle Testing Bilateral Dorsiflexion (L4) 5 Normal Toe Strength Toe Manual Muscle Testing Left Great Toe Extension 5 Normal Right Great Toe Extension 5 Normal PT-OP-Q Treatments Start: 04/27/23 07:21 Freq: Status: Active Protocol: Document 06/15/23 08:16 MB (Rec: 06/15/23 08:55 MB [id number]) Cardio Equipment Bicycle (Upright) Duration (Minutes) 10 Resistance 6 Seat Position 8 Therapeutic Exercises Supine Exercises Mini march Supine Exercise Name Abdominal drawing in and pelvic tilt Reps/Minutes 10 alternating reps Comments Cues for small marching movements HS Supine Exercise Name Abdominal drawing in and pelvic tilt first Reps/Minutes 10 alternating reps Knee fall out Supine Exercise Name Abdominal drawing in and pelvic tilt first Reps/Minutes 10 alternating reps and cues for slow Comments Set position and then gentle knee fall out Abdominal drawing in and pelvic tilt Comments Performed as set position for other exercises PT-OP-T Assessment and Plan Start: 04/27/23 07:21 Freq: Status: Active Protocol: Document 06/15/23 08:16 MB (Rec: 06/15/23 08:55 MB [id number]) Physical Therapy Assessment Goals 4 Impairment Evidence of imbalance with gait Recycling Or Rubbish Collector Goal (LTG) Pt will perform WNLs on a standardized balance test to decrease fall risk. 05/25/23: FGA score: 15/30 LTG Duration 4 weeks 3 Impairment Decreased right hip and knee strength Recycling Or Rubbish Collector Goal (LTG) Pt will present with right knee flexion and extension and hip flexion, abduction and extension strength to at lesat 4+/5 to improve function. 05/25/23: right hip flexion, abd and extension 4+/5; right knee flexion and extension 5/5 ; left hip flexion, abd and extension 4+/5, left knee flexion and extension 5/5 2 Impairment Lack of HEP Snf Goal (LTG) Pt will perform progressive HEP with I including pelvic realignment, posture, balance, flexibility and strengthening to improve postural, pain, range and balance. 05/25/23: Pt is performing pelvic realignment exercises, hamstring, calf, abd/add stretches, hook lying clam with band, standing calf stretches, sitting LAQ with band around knees to engage glutes, ankle strengthening in sitting 1 Impairment LEF score is 52/80 Snf Goal (LTG) Pt will present with an improved LEF score to at least 60/80 to reflect improved knee pain and function. 05/25/23: 49/80, slight improvement in LEF after 7 treatments and the eval LTG Duration 4 weeks Assessment Summary Assessment Gentle core progression today. Pt to bring her body blade to work on core stability and balance training next treatment date and this should be her last exercise added to program and prepare for d/c on 06/22. 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 Physical Therapy Plan Frequency and Duration Frequency of Treatment 2x/Week Duration of treatment (weeks) 4 Plan of Care Start Date 05/25/23 Plan of Care End Date 06/28/23 Next Visit Focus/Plan Next Note Type Treatment Note Next Visit Plan Do not add new core exercises but review and add body blade. D/c in two treatments
--- NOTE | 2023-06-17 10:56 | PT.OTN ---
Current Diagnoses Other chronic pain (06/17/23) Pain in right knee (06/17/23) Physical Therapy Treatment Note PT-OP-A Visit Information Start: 04/27/23 07:21 Freq: Status: Active Protocol: Document 06/17/23 08:15 AB (Rec: 06/17/23 10:56 AB [id number]) Out-Patient Physical Therapy Visit Information Visit Information Visit Type Treatment Note Visit Note Access Code [email or web address] D/c in one treatment Visit Start Time 08:18 Visit Stop Time 08:58 Visit Number 14 Number of INFORMATION ASSURANCE OFFICER Visits 1 Precautions Precautions Please do not add more than 1- 2 exercises per session to monitor response, what works for pt and what does not PT-OP-B Current Condition Start: 04/27/23 07:21 Freq: Status: Active Protocol: Document 04/27/23 09:40 MB (Rec: 04/27/23 10:28 MB [id number]) Current Condition History of Current Condition Onset Date Fall or 2022 Current Complaints Pain at night behind knee, ache History of Current Condition Pt has a history of left knee pain. Her right knee started bothering her in the fall. She had a dexascan that now shows OP and she has felt some instability in her right greater than left knee. She was sleeves that help her feel more secure. At night when sleeping in bed and she turns, she has an ache in the back and outside of the right knee. It is intermittent. It's hard to rate the pain. It is unpredictable. She likes to go for walks. Sometimes it is better than others. She has recovered pretty well from her old right humeral fracture from two years ago. The whole right side seems to be problematic intermittently with right back, hip and ankle . X-ray of right knee showed degenerative changes. Pt is having trouble sleeping and it gets her up at least two nights a week. Pt's a little under a year ago. She has trouble with the steps and her right ankle doesn't move as much with desceding the steps. Treatment Goals Patient/Caregiver Goals Less pain and more stability in the right knee PT-OP-C Subjective Start: 04/27/23 07:21 Freq: Status: Active Protocol: Document 06/17/23 08:15 AB (Rec: 06/17/23 10:56 AB [id number]) OP-PT Subjective Patient Comments Patient Comments Patient reports she is about the same, comments her right knee has given her a little trouble, attributes possibly to gardening. Patient reports feeling stronger when she walks down hills. PT-OP-G Mobility & Gait Start: 04/27/23 07:21 Freq: Status: Active Protocol: Document 04/27/23 09:40 MB (Rec: 04/27/23 10:28 MB [id number]) OP Gait Assessment Comments Gait Comments Gait with socks on: right foot with rigidity and step-to pattern with less movement in right ankle and some supination at the rearfoot. Pt with over pronation of left rearfoot. PT-OP-J Posture/Palpation/Skin Start: 04/27/23 07:21 Freq: Status: Active Protocol: Document 04/27/23 09:40 MB (Rec: 04/27/23 10:28 MB [id number]) Posture Evaluation Comments Posture Comments Standing posture in socks: B rounded shoulders, forward head, right thoracic convexity , right iliac crest higher than the left, B knee valgus, greater on the right and some unweighting of the right foot PT-OP-K Range of Motion Start: 04/27/23 07:21 Freq: Status: Active Protocol: Document 04/27/23 09:40 MB (Rec: 04/27/23 10:28 MB [id number]) Knee Goniometric Range of Motion Knee ROM Limitations Comments B knee degenerative presentation with lacking full zero degree end-range extension in supine, grossly 2 deg. Right knee has soft tissue tightness and fullness that is firm to touch. B AROM flexion to 124 deg. Tension area is behind the knee and also distal and pt may have a plantarflexor change. She appears to have ankle changes and does not quite reach neutral DF in right ankle in supine. Pt has two inserts in shoes that she wears. PT-OP-M Strength Start: 04/27/23 07:21 Freq: Status: Active Protocol: Document 04/27/23 09:40 MB (Rec: 04/27/23 10:28 MB [id number]) Hip Strength Hip Manual Muscle Testing Left Flexion (L2) 4+ Good+ Extension (S1) 4 Good Abduction 4 Good Right Flexion (L2) 4 Good Extension (S1) 4- Good- Abduction 4- Good- Knee Strength Knee Manual Muscle Testing Left Flexion (S2) 5 Normal Extension (L3) 5 Normal Right Flexion (S2) 4 Good Extension (L3) 4+ Good+ Ankle/Foot Strength Ankle and Foot Manual Muscle Testing Bilateral Dorsiflexion (L4) 5 Normal Toe Strength Toe Manual Muscle Testing Left Great Toe Extension 5 Normal Right Great Toe Extension 5 Normal PT-OP-Q Treatments Start: 04/27/23 07:21 Freq: Status: Active Protocol: Document 06/17/23 08:15 AB (Rec: 06/17/23 10:56 AB [id number]) Therapeutic Exercises Supine Exercises Knee fall out Supine Exercise Name with level 3 band, patient comments she has not yet tried this band at [place] Reps/Minutes X10 without hold and X 1 one minute hold Comments also with abdominal drawing in and pelvic tilt Sitting Exercises Ankle DF and eversion Sitting Exercise Name AROM post calf stretches Equipment Used teal level 2 band Reps/Minutes X25 Also X10 AROM without band post stretch Comments Verbal cues Standing Exercises body blade Standing Exercise Name fwd and side to side with UE's in multifidi push out ex position and behind Equipment Used body blade Reps/Minutes one minute each position side stepping Resistance grindstone green band level 3 Reps/Minutes 10 feet X 3 left and right Comments Verbal cues to avoid toeing out Gastroc and soleus stretches Standing Exercise Name on edge of step this session Side bilateral Reps/Minutes Gastroc and soleus X 2 each 60 seconds PT-OP-T Assessment and Plan Start: 04/27/23 07:21 Freq: Status: Active Protocol: Document 06/17/23 08:15 AB (Rec: 06/17/23 10:56 AB [id number]) Physical Therapy Assessment Goals 4 Impairment Evidence of imbalance with gait Rug Setter Velvet Goal (LTG) Pt will perform WNLs on a standardized balance test to decrease fall risk. 05/25/23: FGA score: 15/30 LTG Duration 4 weeks 3 Impairment Decreased right hip and knee strength Rug Setter Velvet Goal (LTG) Pt will present with right knee flexion and extension and hip flexion, abduction and extension strength to at lesat 4+/5 to improve function. 05/25/23: right hip flexion, abd and extension 4+/5; right knee flexion and extension 5/5 ; left hip flexion, abd and extension 4+/5, left knee flexion and extension 5/5 2 Impairment Lack of HEP Custodial Goal (LTG) Pt will perform progressive HEP with I including pelvic realignment, posture, balance, flexibility and strengthening to improve postural, pain, range and balance. 05/25/23: Pt is performing pelvic realignment exercises, hamstring, calf, abd/add stretches, hook lying clam with band, standing calf stretches, sitting LAQ with band around knees to engage glutes, ankle strengthening in sitting 1 Impairment LEF score is 52/80 Custodial Goal (LTG) Pt will present with an improved LEF score to at least 60/80 to reflect improved knee pain and function. 05/25/23: 49/80, slight improvement in LEF after 7 treatments and the eval LTG Duration 4 weeks Assessment Summary Assessment Magi reports having no pain end of session, reports hips feel wonderful, shoulders are fine. Physical Therapy Plan Frequency and Duration Frequency of Treatment 2x/Week Duration of treatment (weeks) 4 Plan of Care Start Date 05/25/23 Plan of Care End Date 06/28/23 Next Visit Focus/Plan Next Note Type Discharge Summary Next Visit Plan Possibly trial of body blade in tandem stance, and with AROM.
--- NOTE | 2023-06-23 09:00 | PT.OTN ---
Current Diagnoses Other chronic pain (06/23/23) Pain in right knee (06/23/23) Physical Therapy Treatment Note PT-OP-A Visit Information Start: 04/27/23 07:21 Freq: Status: Active Protocol: Document 06/23/23 08:16 MB (Rec: 06/23/23 08:52 MB [id number]) Out-Patient Physical Therapy Visit Information Visit Information Visit Type Discharge Summary Visit Start Time 08:16 Visit Stop Time 08:56 Visit Number 15 Number of IT PROJECT LEAD Visits 0 PT-OP-B Current Condition Start: 04/27/23 07:21 Freq: Status: Active Protocol: Document 04/27/23 09:40 MB (Rec: 04/27/23 10:28 MB [id number]) Current Condition History of Current Condition Onset Date Fall or 2022 Current Complaints Pain at night behind knee, ache History of Current Condition Pt has a history of left knee pain. Her right knee started bothering her in the fall. She had a dexascan that now shows OP and she has felt some instability in her right greater than left knee. She was sleeves that help her feel more secure. At night when sleeping in bed and she turns, she has an ache in the back and outside of the right knee. It is intermittent. It's hard to rate the pain. It is unpredictable. She likes to go for walks. Sometimes it is better than others. She has recovered pretty well from her old right humeral fracture from two years ago. The whole right side seems to be problematic intermittently with right back, hip and ankle . X-ray of right knee showed degenerative changes. Pt is having trouble sleeping and it gets her up at least two nights a week. Pt's a little under a year ago. She has trouble with the steps and her right ankle doesn't move as much with desceding the steps. Treatment Goals Patient/Caregiver Goals Less pain and more stability in the right knee PT-OP-C Subjective Start: 04/27/23 07:21 Freq: Status: Active Protocol: Document 06/23/23 08:16 MB (Rec: 06/23/23 08:52 MB [id number]) OP-PT Subjective Patient Comments Patient Comments Overall, pt feels more comfortable going downstairs. Walking down a hill, her knee doesn't hurt. Overall, she is very happy with her progress. She understands her exercises. PT-OP-G Mobility & Gait Start: 04/27/23 07:21 Freq: Status: Active Protocol: Document 04/27/23 09:40 MB (Rec: 04/27/23 10:28 MB [id number]) OP Gait Assessment Comments Gait Comments Gait with socks on: right foot with rigidity and step-to pattern with less movement in right ankle and some supination at the rearfoot. Pt with over pronation of left rearfoot. PT-OP-J Posture/Palpation/Skin Start: 04/27/23 07:21 Freq: Status: Active Protocol: Document 04/27/23 09:40 MB (Rec: 04/27/23 10:28 MB [id number]) Posture Evaluation Comments Posture Comments Standing posture in socks: B rounded shoulders, forward head, right thoracic convexity , right iliac crest higher than the left, B knee valgus, greater on the right and some unweighting of the right foot PT-OP-K Range of Motion Start: 04/27/23 07:21 Freq: Status: Active Protocol: Document 04/27/23 09:40 MB (Rec: 04/27/23 10:28 MB [id number]) Knee Goniometric Range of Motion Knee ROM Limitations Comments B knee degenerative presentation with lacking full zero degree end-range extension in supine, grossly 2 deg. Right knee has soft tissue tightness and fullness that is firm to touch. B AROM flexion to 124 deg. Tension area is behind the knee and also distal and pt may have a plantarflexor change. She appears to have ankle changes and does not quite reach neutral DF in right ankle in supine. Pt has two inserts in shoes that she wears. PT-OP-M Strength Start: 04/27/23 07:21 Freq: Status: Active Protocol: Document 04/27/23 09:40 MB (Rec: 04/27/23 10:28 MB [id number]) Hip Strength Hip Manual Muscle Testing Left Flexion (L2) 4+ Good+ Extension (S1) 4 Good Abduction 4 Good Right Flexion (L2) 4 Good Extension (S1) 4- Good- Abduction 4- Good- Knee Strength Knee Manual Muscle Testing Left Flexion (S2) 5 Normal Extension (L3) 5 Normal Right Flexion (S2) 4 Good Extension (L3) 4+ Good+ Ankle/Foot Strength Ankle and Foot Manual Muscle Testing Bilateral Dorsiflexion (L4) 5 Normal Toe Strength Toe Manual Muscle Testing Left Great Toe Extension 5 Normal Right Great Toe Extension 5 Normal PT-OP-Q Treatments Start: 04/27/23 07:21 Freq: Status: Active Protocol: Document 06/23/23 08:16 MB (Rec: 06/23/23 08:52 MB [id number]) Cardio Equipment Bicycle (Upright) Duration (Minutes) 10 Resistance 6 Seat Position 8 Therapeutic Exercises Standing Exercises body blade Comments Yellow blade, feet close, tummy tight, multiple directions Gastroc and soleus stretches Comments Performed with left foot on book and heel on floor Other Exercises HEP review Comments Performed today and reviewed handouts in prep for d/c Gait Training Gait Activity Gait training in hallway to observe gait pattern Comments In the hallway, gait pattern con't to be abnormal and wrote comments under FGA and assessment today. Increased knee valgus left greater than right and ankle changes, foot changes Neuro Re-Education Treatment Balance Activities FGA Comments FGA: overall, pt's gait has wide ES and rigid presentation of feet with little heel strike and toe push-off and with increased Tredelenburg B. Score is 16/30 and indicating increased risk for falling and mostly lower scores d/t gait pattern and slow speed PT-OP-T Assessment and Plan Start: 04/27/23 07:21 Freq: Status: Active Protocol: Document 06/23/23 08:16 MB (Rec: 06/23/23 08:52 MB [id number]) Physical Therapy Assessment Goals 4 Impairment Evidence of imbalance with gait Piling Setter Goal (LTG) Pt will perform WNLs on a standardized balance test to decrease fall risk. 05/25/23: FGA score: 15/30 06/23/23 FGA: overall, pt's gait has wide ES and rigid presentation of feet with little heel strike and toe push-off and with increased Tredelenburg B. Score is 16/30 and indicating increased risk for falling and mostly lower scores d/t gait pattern and slow speed LTG Duration Partially met 3 Impairment Decreased right hip and knee strength Piling Setter Goal (LTG) Pt will present with right knee flexion and extension and hip flexion, abduction and extension strength to at lesat 4+/5 to improve function. 05/25/23: right hip flexion, abd and extension 4+/5; right knee flexion and extension 5/5 ; left hip flexion, abd and extension 4+/5, left knee flexion and extension 5/5 06/23/23: Left hip flexion, abduction and knee flexion and extension 5/5, left hip extension 4+/5; right hip flexion 4/5, right hip abduction and extension 4+/5; right knee flexion 4+/5 and right knee extension 5/5 2 Impairment Lack of HEP Prison Goal (LTG) Pt will perform progressive HEP with I including pelvic realignment, posture, balance, flexibility and strengthening to improve postural, pain, range and balance. 05/25/23: Pt is performing pelvic realignment exercises, hamstring, calf, abd/add stretches, hook lying clam with band, standing calf stretches, sitting LAQ with band around knees to engage glutes, ankle strengthening in sitting 06/23/23: Pt is performing her full HEP LTG Duration Met 1 Impairment LEF score is 52/80 Prison Goal (LTG) Pt will present with an improved LEF score to at least 60/80 to reflect improved knee pain and function. 05/25/23: 49/80, slight improvement in LEF after 7 treatments and the eval 06/23/23: 54/80, mild progress from initial treatment date LTG Duration Partially met Assessment Summary Assessment Magi has been very compliant with PT and has progressed towards all goals. Overall, pt's gait has wide ES and rigid presentation of feet with little heel strike and toe push-off and with increased Tredelenburg B. FGA score is 16/30 and indicating increased risk for falling and mostly lower scores d/t gait pattern and slow speed. Pt is on the wait list to see a education dean.
== END 2023-06-24 12:46 | disposition home or self-care (01) ==
LOC: PHYS 08:15
PROVIDERS: Family Provider Family Medicine; PCP Family Medicine; Referring Provider Family Medicine; Visit Provider Family Medicine
DX: M25.561 Pain in right knee (principal); G89.29 Other chronic pain
CPT/HCPCS: 97110; 97112; 97116; 97140; 97161; 97530; 97535

== ENCOUNTER → 2023-07-09 14:14 | Outpatient (CLI) | payer MEDICARE, SELFPAY ==
--- NOTE | 2023-07-09 14:15 | DI.US.S_ITS ---
PROCEDURE: US EXTREMITY NONVASC LOWER RT INDICATIONS: MASS OF RIGHT KNEE TECHNIQUE: Real-time scanning was performed of the right knee, with image documentation. COMPARISON: None. FINDINGS: Ultrasound examination of right popliteal fossa shows a complex appearing cystic structure measures 6.7 x 4.7 x 3.3 cm with low level internal echo. A simple appearing cystic structure is also seen in posterior fossa and measures 3.3 x 2.1 x 1.2 cm in size. No internal vascularity is are noted. No solid appearing lesion is seen. IMPRESSION: 2 popliteal cysts as described above. No solid lesion. Dictated by: Jose Johnson M.D. on 07/09/2023 at 15:11 Approved by: Jose Johnson M.D. on 07/09/2023 at 15:18
== END ==
PROVIDERS: Family Provider Family Medicine; PCP Family Medicine; Referring Provider Family Medicine; Visit Provider Family Medicine
DX: M71.21 Synovial cyst of popliteal space [Baker], right knee (principal); R22.41 Localized swelling, mass and lump, right lower limb
CPT/HCPCS: 76882

== ENCOUNTER → 2023-08-04 09:15 | Outpatient (CLI) | payer MEDICARE, SELFPAY ==
--- NOTE | 2023-08-04 09:16 | DI.MG.S_ITS ---
BILATERAL DIGITAL SCREENING MAMMOGRAM 3D/2D WITH CAD: 08/04/2023 CLINICAL: Routine screening. Family history of breast cancer. Comparison is made to exams dated: 06/10/2022 mammogram, 08/31/2020 mammogram, and 12/24/2017 mammogram - [facility]. Both breasts are heterogeneously dense, which may obscure small masses (category c / 51-75% glandular tissue). Current study was also evaluated with a Computer Aided Detection (CAD) system. There are benign vascular calcifications in both breasts. No significant masses, calcifications, or other findings are seen in either breast. There has been no significant interval change. IMPRESSION: BENIGN There is no mammographic evidence of malignancy. A 1 year screening mammogram is recommended. Based on the Tyrer Cuzick model (a risk assessment model) the patient's lifetime risk is 13.3% and her 10 year risk is 0.0%. According to the ACR, ACS, and NCCN guidelines, an annual breast MRI exam along with mammogram is recommended if the patient's lifetime risk is 20% or greater. This exam was interpreted at Station ID: [id number]. NOTE: For mammograms, a report in lay terms will be sent to the patient. Approximately 15% of breast malignancies will not be visualized mammographically. In the management of a palpable breast mass, a negative mammogram must not discourage biopsy of a clinically suspicious lesion. Electronically Signed By: Denys dubon/jason:08/04/2023 12:56:11 letter sent: Normal Exam ACR BI-RADS Category 2: Benign Finding(s) 3342F
== END ==
LOC: MAMMO 09:16
PROVIDERS: Family Provider Family Medicine; PCP Family Medicine; Referring Provider Family Medicine; Visit Provider Family Medicine
DX: Z12.31 Encounter for screening mammogram for malignant neoplasm of breast (principal); Z80.3 Family history of malignant neoplasm of breast; R92.333 Mammographic heterogeneous density, bilateral breasts
CPT/HCPCS: 77063; 77067

== ENCOUNTER → 2024-06-19 10:40 | Outpatient (CLI) | payer MEDICARE, SELFPAY ==
--- NOTE | 2024-06-19 10:44 | DI.RAD.S_ITS ---
PROCEDURE: XR HIP W PEL IF DONE RT 2V INDICATIONS: DISCOMFORT OF RT GROIN TECHNIQUE: 2 views of the hip were acquired. COMPARISON: None. FINDINGS AND IMPRESSION: Moderate to severe right and moderate left hip arthrosis, with joint space loss and periarticular osteophytes and bone fragments. Right calcific tendinopathy. No acute displaced fracture or dislocation Pubic symphysis and lumbosacral degenerative changes also seen. If there is high concern for further derangement, consider MRI evaluation. Dictated by: Denys Rollins M.D. on 06/19/2024 at 15:49 Approved by: Denys Rollins M.D. on 06/19/2024 at 15:50
== END ==
PROVIDERS: Family Provider Family Medicine; PCP Family Medicine; Referring Provider Family Medicine; Visit Provider Family Medicine
DX: R10.31 Right lower quadrant pain (principal); M16.0 Bilateral primary osteoarthritis of hip; M65.851 Other synovitis and tenosynovitis, right thigh
CPT/HCPCS: 73502